=== PATIENT | female | born 1950 | race Asian ===

== ENCOUNTER 2018-01-03 19:47 | Emergency (ER) | payer OTHER, SELFPAY ==
[2018-01-03 19:47] VITALS: BP 158/108; PULSE 111; RESP 16; O2SAT 95; BMI 30.4
--- NOTE | 2018-01-03 20:06 | ED.CHESTPAIN ---
HPI - Chest Pain General Chief Complaint: Chest Pain Stated Complaint: CHEST PAIN Time Seen by Provider: 01/03/18 19:56 Source: patient and old records reviewed Mode of arrival: ambulatory Limitations: no limitations History of Present Illness HPI narrative: Patient is a 59-year-old female presenting with chest pain. She has a history of atrial fibrillation on Coumadin and metoprolol. She said it started at around 7:00 p.m. this evening. She felt her heart racing and palpitations. No dizziness lightheadedness shortness of breath. She has had this before. She has been taking all of her medication. No fevers or chills. MD complaint: chest pain Related Data Home Medications Medication Instructions Recorded Confirmed COLCHICINE (#COLCHICINE) 0.6 mg PO TID #0 03/28/11 01/03/18 metformin [Glucophage XR] 500 mg PO QDAY #0 05/25/17 01/03/18 metoprolol succinate ER 200 mg 100 mg PO QDAY #0 tab 08/08/17 01/03/18 tablet,extended release 24 hr simvastatin 20 mg tablet 20 mg PO QPM 08/08/17 01/03/18 warfarin 5 mg tablet 2.5 mg PO DAILY 08/08/17 01/03/18 Allergies Allergy/AdvReac Type Severity Reaction Status Date / Time No Known Drug Allergies Allergy Verified 08/08/17 15:00 Review of Systems Review of Systems GENERAL: Denies chills, fatigue, malaise, fever, sweats, travel HEENT: Denies sinus pain, ear pain, sore throat, difficulty swallowing, neck pain RESPIRATORY: Denies dyspnea, cough, wheezing, hemoptysis, sputum. CARDIOVASCULAR: See HPI GASTROINTESTINAL: Denies nausea, vomiting, abdominal pain, diarrhea, constipation, melena. : Denies dysuria, frequency, incontinence, hematuria, urinary retention, flank pain. MUSCULOSKELETAL: Denies weakness, joint pain, or bony pain SKIN: No rash, no erythema, no pruritus NEUROLOGIC: Denies weakness, dizziness, headache, numbness, change in speech, confusion PSYCHIATRIC: No concerning psychosocial issues. 12 point review of systems is negative except for those stated above and HPI PFSH Social History Smoking Status: Former smoker Exam Initial Vital Signs Initial Vital Signs: Vital Signs Pulse Rate 111 H 01/03/18 19:47 Respiratory Rate 16 01/03/18 19:47 Blood Pressure 158/108 H 10/31/18 19:47 Pulse Oximetry 95 01/03/18 19:47 GENERAL: Alert well-appearing female slightly anxious speaking in full sentences HEENT: Head atraumatic,EOMI, pupils reactive, neck is supple no JVD CARDIOVASCULAR: Irregularly irregular tachycardic no murmur RESPIRATORY: Breath sounds equal bilaterally, no wheezes rales or rhonchi. ABDOMEN: Soft, nontender. Normoactive bowel sounds all 4 quadrants. No guarding or rebound. EXTREMITIES: Normal range of motion, no clubbing or edema. Neurovascularly intact NEUROLOGICAL: Alert and oriented x4.Normal gait and speech. Cranial nerves II through XII grossly intact. SKIN: Warm, dry, no laceration, no petechiae, no rashes or lesions. Course Orders Ordered: ED Orders 01/03/18 20:00 Complete Blood Count AUTO DIFF Stat Comprehensive Metabolic Panel Stat Lipase Stat Partial Thromboplastin Time Stat Prothrombin Time INR Stat Troponin & CK Cardiac Panel Stat 01/03/18 20:10 XR chest 1V Stat Discontinued Medications Diltiazem HCl (Cardizem) 10 mg IV NOW ONE Stop: 01/03/18 20:11 Last Admin: 01/03/18 20:33 Dose: 10 mg Sodium Chloride (Normal Saline 0.9%) 1,000 mls @ 150 mls/hr IV CONT DAYDAY Last Infusion: 01/03/18 21:21 Dose: 0 mls/hr Admin: 01/03/18 20:34 Dose: 150 mls/hr Vital Signs - 8 hr 01/03/18 19:47 01/03/18 20:13 01/03/18 20:45 Temperature 98.5 F Pulse Rate 111 H 70 Respiratory Rate 16 18 Blood Pressure 158/108 H Blood Pressure [Right Arm] 137/76 Pulse Oximetry 95 91 01/03/18 21:00 01/03/18 21:22 Temperature Pulse Rate 72 80 Respiratory Rate 14 17 Blood Pressure 121/76 Blood Pressure [Right Arm] 121/76 Pulse Oximetry 95 95 MDM - Chest Pain Lab Data Attestation: I reviewed the patient's lab results. Result diagrams: 01/03/18 20:00 01/03/18 20:00 Lab Results 01/03/18 01/03/18 01/03/18 Range/Units 20:00 20:00 20:00 WBC 8.3 (4.5-11.0) X10^3/uL RBC 4.33 (4.0-5.2) X10^6/uL Hgb 13.2 (12.0-16.0) g/dL Hct 40.9 (36-46) % MCV 94.4 (80-100) fL MCH 30.5 (26-34) PG MCHC 32.3 (30-36) % RDW 12.8 (11.6-14.8) % Plt Count 278 (150-400) X10^3/uL Neut % (Auto) 48.3 L (50-75) % Lymph % (Auto) 42.2 H (25-40) % [place] % (Auto) 5.4 (3-14) % Eos % (Auto) 3.6 (2-4) % Baso % (Auto) 0.5 (0-2) % Neut # (Auto) 4000 (5251-6199) /uL PT 24.3 H (10.1-12.7) SECONDS INR 2.2 H (0.9-1.3) APTT 45 H (26.4-36.2) SECONDS Sodium 145 (137-145) mmol/L Potassium 3.5 (3.4-5.1) mmol/L Chloride 103 (98-107) mmol/L Carbon Dioxide 26 (22-32) mmol/L BUN 24 H (7-17) mg/dL Creatinine 1.10 H (0.52-1.04) mg/dL Estimated GFR 49.4 L (>60) mL/min BUN/Creatinine Ratio 21.8 (6-22) Glucose 203 H (80-110) mg/dL Calcium 9.3 (8.4-10.2) mg/dL Total Bilirubin 0.2 (0.2-1.3) mg/dL AST 25 (14-36) IU/L ALT 31 (9-52) IU/L Alkaline Phosphatase 88 (38-126) U/L Total Creatine Kinase 132 (30-135) U/L CK-MB (CK-2) 1.46 (<2.37) ng/mL CK-MB (CK-2) Rel Index 1.1 L (1.5-5.0) % Troponin I < 0.012 (0.01-0.034) ng/mL Total Protein 8.7 H (6.3-8.2) g/dL Albumin 4.5 (3.5-5.0) g/dL Globulin 4.2 H (1.7-4.1) g/dL Albumin/Globulin Ratio 1.1 (1.0-2.8) Lipase 382 H (23-300) U/L Urine Dip Bedside Urine Glucose Negative Bedside Urine Bilirubin - Negative Bedside Urine Ketone - Negative Urine Specific [place] 1.015 Bedside Urine Occult Blood +/- Bedside Urine pH 6.5 Bedside Urine Protein + 30 Bedside Urine Urobilinogen - Negative Bedside Urine Nitrite - Negative Bedside Urine Leukocytes - Negative Esterase Imaging Data Chest x-ray: Radiologist's impression: PROCEDURE: XR CHEST 1V INDICATIONS: chest pain TECHNIQUE: One view of the chest was acquired. COMPARISON: [facility], CR, CHEST 1 VIEW, 05/25/2017, 20:42. [facility], CR, XR CHEST 1VW (PORTABLE), 08/02/2016, 16:05. FINDINGS: Surgical changes and devices: None. Lungs and pleura: No pleural effusions or pneumothorax. Lungs are abnormal with a mild interstitial prominence previously present. Mediastinum: Mediastinal contours appear normal. Heart size is normal. Bones and chest wall: No suspicious bony lesions. Overlying soft tissues appear unremarkable. IMPRESSION: There is a reduced inspiratory volume, mild interstitial prominence previously present. Source of current symptoms is not seen. Dictated by: Alden Quiñonez M.D. on 01/03/2018 at 21:10 ECG Data Attestation: I personally reviewed and interpreted this ECG as follows: Prior ECG tracings: available for review Interpretation: EKG 1.: Atrial flutter rate [address] changes similar to previous EKG EKG 2. Atrial flutter rate [address] changes similar to previous EKG MDM Narrative Medical decision making narrative: The patient overall is feeling much better after her heart rate has slowed. Previous EKG shows a AFib as well. She took her metoprolol for this evening already. Discharge Plan Departure Patient Disposition: Home Clinical Impression: Atrial fibrillation/flutter Discharge Date/Time: 01/03/18 20:21 Interventions: ED Discharge Assessment Last Done: 01/03/18 21:22 Instructions: Atrial Flutter Activity Restrictions/Additional Instructions: *You have been diagnosed with atrial flutter *Continue to take medications as directed *Follow up with your primary care provider in 2-3 days *Return to ER if you should have worsening chest pain, heart palpitations, dizziness, lightheadedness or any new, worsening or concerning symptoms Prescriptions: No Action simvastatin 20 mg tablet 20 mg PO QPM RF: 0 warfarin [Coumadin] 5 mg tablet 2.5 mg PO DAILY RF: 0 COLCHICINE (#COLCHICINE) 0.6 mg PO TID Qty: 0 RF: 0 metformin [Glucophage XR] 500 MG tablet extended release 24 hr 500 mg PO QDAY Qty: 0 RF: 0 metoprolol succinate 200 mg tablet extended release 24 hr 100 mg PO QDAY Qty: 0 RF: 0
--- NOTE | 2018-01-03 20:10 | DI.RAD.S_ITS ---
PROCEDURE: XR CHEST 1V INDICATIONS: chest pain TECHNIQUE: One view of the chest was acquired. COMPARISON: [facility], CR, CHEST 1 VIEW, 05/25/2017, 20:42. [facility], CR, XR CHEST 1VW (PORTABLE), 08/02/2016, 16:05. FINDINGS: Surgical changes and devices: None. Lungs and pleura: No pleural effusions or pneumothorax. Lungs are abnormal with a mild interstitial prominence previously present. Mediastinum: Mediastinal contours appear normal. Heart size is normal. Bones and chest wall: No suspicious bony lesions. Overlying soft tissues appear unremarkable. IMPRESSION: There is a reduced inspiratory volume, mild interstitial prominence previously present. Source of current symptoms is not seen. Dictated by: Alden Quiñonez M.D. on 01/03/2018 at 21:10 Approved by: Alden Quiñonez M.D. on 01/03/2018 at 21:11
[2018-01-03 20:13] VITALS: TEMP 36.9
[2018-01-03 20:20] LABS: Add Manual Diff / Slide Review NO; Basophils Percent Auto 0.5 % (0-2); Eosinophils Percent Auto 3.6 % (2-4); Hematocrit 40.9 % (36-46); Hemoglobin 13.2 g/dL (12.0-16.0); INR 2.2 (0.9-1.3); Lymphocytes Percent Auto 42.2 % (25-40); Mean Corpuscular HGB Conc 32.3 % (30-36); Mean Corpuscular Hemoglobin 30.5 PG (26-34); Mean Corpuscular Volume 94.4 fL (80-100); Monocytes Percent Auto 5.4 % (3-14); Neutrophils Absolute Auto 4000 /uL (3000-5900); Neutrophils Percent Auto 48.3 % (50-75); Platelet Count 278 X10^3/uL (150-400); Prothrombin Time 24.3 SECONDS (10.1-12.7); Red Blood Cell Count 4.33 X10^6/uL (4.0-5.2); Red Cell Distribution Width 12.8 % (11.6-14.8); White Blood Cell Count 8.3 X10^3/uL (4.5-11.0)
[2018-01-03 20:23] LABS: PTT Partial Thromboplastin Tim 45 SECONDS (26.4-36.2)
[2018-01-03 20:24] LABS: Alanine Aminotransferase 31 IU/L (9-52); Albumin 4.5 g/dL (3.5-5.0); Albumin Globulin Ratio 1.1 (1.0-2.8); Alkaline Phosphatase 88 U/L (38-126); Aspartate Aminotransferase 25 IU/L (14-36); BUN Creatinine Ratio 21.8 (6-22); Bilirubin Total 0.2 mg/dL (0.2-1.3); Blood Urea Nitrogen 24 mg/dL (7-17); Calcium 9.3 mg/dL (8.4-10.2); Carbon Dioxide 26 mmol/L (22-32); Chloride 103 mmol/L (98-107); Creatine Kinase 132 U/L (30-135); Estimated Glomerular Filt Rate 49.4 mL/min (>60); Globulin 4.2 g/dL (1.7-4.1); Glucose 203 mg/dL (80-110); HEMOLYSIS < 15 (0-50); Lipase 382 U/L (23-300); Potassium 3.5 mmol/L (3.4-5.1); Sodium 145 mmol/L (137-145); Total Protein 8.7 g/dL (6.3-8.2)
[2018-01-03] MEDS: dilTIAZem 5 MG/ML SDV 10 MG IV (20:33)
[2018-01-03] MEDS: SODIUM CHLORIDE 0.9% 1,000 ML 150 ML IV (20:34)
[2018-01-03 20:36] LABS: Troponin I < 0.012 ng/mL (0.01-0.034)
[2018-01-03 20:39] LABS: CKMB % Relative Index 1.1 % (1.5-5.0); Creatine Kinase MB 1.46 ng/mL (<2.37)
[2018-01-03 20:45] VITALS: BP 137/76; PULSE 70; RESP 18; O2SAT 91
[2018-01-03 21:00] VITALS: BP 121/76; PULSE 72; RESP 14; O2SAT 95
[2018-01-03 21:22] VITALS: BP 121/76; PULSE 80; RESP 17; O2SAT 95
== END 2018-01-03 20:21 | disposition home or self-care (01) ==
PROVIDERS: Emergency Provider Emergency Medicine
DX: I48.91 Unspecified atrial fibrillation (principal)
CPT/HCPCS: 36591; 71045; 80053; 81003; 82550; 82553; 83690; 84484; 85025; 85610; 85730; 93005; 96361; 96374; 99283; 99285

== ENCOUNTER 2018-09-01 00:05 | Emergency (ER) | payer OTHER, SELFPAY ==
[2018-09-01] VITALS (16 sets, daily range): BP systolic 114–203; BP diastolic 70–129; PULSE 58–108; RESP 13–21; TEMP 36.6; O2SAT 95–98; BMI 31.8
--- NOTE | 2018-09-01 00:09 | ED_ITS ---
HPI - Chest Pain General Chief Complaint: Chest Pain Stated Complaint: chest pain, headache Time Seen by Provider: 09/01/18 00:07 Source: patient Mode of arrival: ambulatory Limitations: no limitations History of Present Illness HPI narrative: Patient is a 67-year-old female. Has a history of paroxysmal atrial fibrillation. Is currently on warfarin and also metoprolol. Also has a history of hypertension and hyperlipidemia. Here for evaluation of left-sided chest pain. Patient states she has had the pain off and on for the past couple days. Describes it as a ?crushing? sensation. States that it is become more frequent and more intense over the past day. Not associated with any other symptoms. Not worse with palpation or movement or breathing. Has never had any symptoms like this prior to a couple days ago. The symptoms that she had this evening the brought her into the emergency department woke her from sleep. Has not tried anything for the symptoms prior to arrival. Related Data Home Medications Medication Instructions Recorded Confirmed metformin [Glucophage XR] 500 mg PO QDAY #0 05/25/17 09/01/18 simvastatin 20 mg tablet 20 mg PO QPM 08/08/17 09/01/18 warfarin 5 mg tablet 2.5 mg PO DAILY 08/08/17 09/01/18 allopurinol 300 mg PO DAILY 09/01/18 09/01/18 metoprolol tartrate 150 mg PO DAILY 09/01/18 09/01/18 Allergies Allergy/AdvReac Type Severity Reaction Status Date / Time No Known Drug Allergies Allergy Verified 09/01/18 00:18 Review of Systems Constitutional Denies fever(s) and Denies headache(s) ENT Ears, Nose, Mouth, and Throat: Denies headache(s) Cardiovascular Reports chest pain, Denies diaphoresis, Denies syncope, Denies edema, Denies leg edema, Denies lightheadedness, Denies palpitations, Denies dyspnea and Denies paroxysmal nocturnal dyspnea Respiratory Denies cough and Denies dyspnea Gastrointestinal Gastrointestinal: Denies abdominal pain, Denies nausea and Denies vomiting Musculoskeletal Denies myalgias and Denies arthralgias Integumentary/Breasts Denies rash Neurologic Denies behavioral changes, Denies syncope and Denies headache(s) Psychiatric Denies behavioral changes Endocrine Denies palpitations Hematologic/Lymphatic Denies easy bleeding and Denies easy bruising [facility] Medical History Atrial fibrillation (Acute) Diabetes (Acute) Hyperlipidemia (Acute) Hypertension (Acute) Social History Smoking Status: Former smoker Social History Smoking Status: Former smoker Exam Initial Vital Signs Initial Vital Signs: Vital Signs Temperature 98 F 09/01/18 00:09 Pulse Rate 64 09/01/18 00:09 Respiratory Rate 13 09/01/18 00:09 Blood Pressure 203/84 H 09/01/18 00:09 Pulse Oximetry 96 09/01/18 00:09 Const General: cooperative, healthy appearing, comfortable, well developed, well groomed and No acute distress Orientation: alert and awake HENMT Head: normal to inspection and normocephalic Resp Effort & Inspection: normal respiratory effort Auscultation: clear to auscultation bilaterally Cardio Rate: regular rate Rhythm: regular rhythm Pulses: radial pulses present GI Inspection: non-distended Palpation: soft, No firm and No tender Skin Lesions: no lesions Rashes: no rashes Neuro General: alert, awake and oriented x3 Cognition: normal cognition Speech: speech normal Extrem General: normal to inspection, capillary refill normal and No edema Psych Appearance: grossly normal and well kempt Scores GCS Vivien coma scale eye opening: Spontaneous [place] coma scale verbal response: Orientated [place] coma scale motor response: Obey commands [place] coma scale total score: 15 HEART Score Heart Score history: Moderately Suspicious Heart Score EKG: Normal Heart Score Age: > or = 65 years old Heart Score risk factors: > 3 risk factors or hx of atherosclerotic disease Heart Score troponin: < or = to normal limit Heart Score Total: 5 Course Orders Ordered: ED Orders 09/01/18 00:10 XR chest 1V Stat EKG-12 Lead Stat 09/01/18 00:15 Complete Blood Count AUTO DIFF Stat Comprehensive Metabolic Panel Stat Lipase Stat Prothrombin Time INR Stat Troponin I Stat Discontinued Medications Aspirin (Aspirin Chew) 324 mg PO NOW ONE Stop: 09/01/18 00:33 Last Admin: 09/01/18 00:37 Dose: 324 mg Nitroglycerin (Nitrostat) 0.4 mg SL [id number] PRN PRN Reason: Chest Pain Last Admin: 09/01/18 00:57 Dose: 0.4 mg Admin: 09/01/18 00:48 Dose: 0.4 mg Admin: 09/01/18 00:38 Dose: 0.4 mg Vital Signs - 8 hr 09/01/18 00:09 09/01/18 00:25 09/01/18 00:38 Temperature 98 F Pulse Rate 64 59 L 64 Respiratory Rate 13 14 Blood Pressure 203/84 H 187/79 H Blood Pressure [Left Arm] 173/81 H Pulse Oximetry 96 95 09/01/18 00:48 09/01/18 00:57 09/01/18 01:11 Temperature Pulse Rate Respiratory Rate Blood Pressure 157/79 H 135/94 H 127/77 Blood Pressure [Left Arm] Pulse Oximetry 09/01/18 01:20 09/01/18 02:29 Temperature Pulse Rate 59 L 59 L Respiratory Rate 18 18 Blood Pressure Blood Pressure [Left Arm] 137/74 152/81 H Pulse Oximetry 95 97 MDM - Chest Pain Lab Data Attestation: I reviewed the patient's lab results. Result diagrams: 09/01/18 00:15 09/01/18 00:15 Lab Results 09/01/18 09/01/18 09/01/18 Range/Units 00:15 00:15 00:15 WBC 6.6 (4.5-11.0) X10^3/uL RBC 4.32 (4.0-5.2) X10^6/uL Hgb 13.5 (12.0-16.0) g/dL Hct 40.7 (36-46) % MCV 94.2 (80-100) fL MCH 31.3 (26-34) PG MCHC 33.2 (30-36) % RDW 13.6 (11.6-14.8) % Plt Count 251 (150-400) X10^3/uL Neut % (Auto) 44.7 L (50-75) % Lymph % (Auto) 41.1 H (25-40) % [place] % (Auto) 10.2 (3-14) % Eos % (Auto) 3.5 (2-4) % Baso % (Auto) 0.5 (0-2) % Neut # (Auto) 2900 (1364-4441) /uL Lymph # (Auto) 2700 (7942-7186) /uL [place] # (Auto) 700 (0-900) /uL Eos # (Auto) 200 (0-450) /uL Baso # (Auto) 0 (0-100) /uL PT 19.5 H (10.1-12.7) SECONDS INR 1.7 H (0.9-1.3) Sodium 142 (137-145) mmol/L Potassium 4.3 (3.4-5.1) mmol/L Chloride 105 (98-107) mmol/L Carbon Dioxide 29 (22-32) mmol/L BUN 29 H (7-17) mg/dL Creatinine 1.00 (0.52-1.04) mg/dL Estimated GFR 55.1 L (>60) mL/min BUN/Creatinine Ratio 29.0 H (6-22) Glucose 148 H (80-110) mg/dL Calcium 9.4 (8.4-10.2) mg/dL Total Bilirubin 0.6 (0.2-1.3) mg/dL AST 41 H (14-36) IU/L ALT 45 (9-52) IU/L Alkaline Phosphatase 84 (38-126) U/L Troponin I < 0.012 (0.01-0.034) ng/mL Total Protein 8.5 H (6.3-8.2) g/dL Albumin 4.3 (3.5-5.0) g/dL Globulin 4.2 H (1.7-4.1) g/dL Albumin/Globulin Ratio 1.0 (1.0-2.8) Lipase (23-300) U/L 09/01/18 Range/Units 00:15 WBC (4.5-11.0) X10^3/uL RBC (4.0-5.2) X10^6/uL Hgb (12.0-16.0) g/dL Hct (36-46) % MCV (80-100) fL MCH (26-34) PG MCHC (30-36) % RDW (11.6-14.8) % Plt Count (150-400) X10^3/uL Neut % (Auto) (50-75) % Lymph % (Auto) (25-40) % [place] % (Auto) (3-14) % Eos % (Auto) (2-4) % Baso % (Auto) (0-2) % Neut # (Auto) (1441-0030) /uL Lymph # (Auto) (3298-0368) /uL [place] # (Auto) (0-900) /uL Eos # (Auto) (0-450) /uL Baso # (Auto) (0-100) /uL PT (10.1-12.7) SECONDS INR (0.9-1.3) Sodium (137-145) mmol/L Potassium (3.4-5.1) mmol/L Chloride (98-107) mmol/L Carbon Dioxide (22-32) mmol/L BUN (7-17) mg/dL Creatinine (0.52-1.04) mg/dL Estimated GFR (>60) mL/min BUN/Creatinine Ratio (6-22) Glucose (80-110) mg/dL Calcium (8.4-10.2) mg/dL Total Bilirubin (0.2-1.3) mg/dL AST (14-36) IU/L ALT (9-52) IU/L Alkaline Phosphatase (38-126) U/L Troponin I (0.01-0.034) ng/mL Total Protein (6.3-8.2) g/dL Albumin (3.5-5.0) g/dL Globulin (1.7-4.1) g/dL Albumin/Globulin Ratio (1.0-2.8) Lipase 327 H (23-300) U/L Imaging Data Chest x-ray: Attestation: I personally reviewed and interpreted this imaging study as follows: My impression: Normal size heart No acute pathology No pneumothorax ECG Data Attestation: I personally reviewed and interpreted this ECG as follows: Prior ECG tracings: not available for review Interpretation: Sinus rhythm Normal axis Ventricular rate is [address] T wave changes MDM Narrative Medical decision making narrative: The patient was given aspirin here upon arrival. Was still having chest pain in was hypertensive upon arrival which improved with nitroglycerin. Patient is a heart score 5. Her symptoms are somewhat concerning for ischemia. I feel that admission for stress testing and continued evaluation is needed. We are unable to provide stress testing here at this hospital over the weekend. I did discuss the case with Dr. Sandhu with Internal Medicine at [facility] who accepts the patient in transport. I did discuss this with the patient and her son who is at bedside. They both expresse d understanding and agreement plan. Discharge Plan Departure Patient Disposition: [facility] Clinical Impression: Chest pain Qualifiers: Chest pain type: unspecified Qualified Code(s): R07.9 - Chest pain, unspecified Hypertension Qualifiers: Hypertension type: unspecified Qualified Code(s): I10 - Essential (primary) hypertension Prescriptions: No Action simvastatin 20 mg tablet 20 mg PO QPM RF: 0 warfarin [Coumadin] 5 mg tablet 2.5 mg PO DAILY RF: 0 metformin [Glucophage XR] 500 MG tablet extended release 24 hr 500 mg PO QDAY Qty: 0 RF: 0 allopurinol 300 mg tablet 300 mg PO DAILY RF: 0 metoprolol tartrate 100 mg tablet 150 mg PO DAILY RF: 0
--- NOTE | 2018-09-01 00:10 | DI.RAD.S_ITS ---
PROCEDURE: XR CHEST 1V INDICATIONS: Chest pain TECHNIQUE: One view of the chest was acquired. COMPARISON: [facility], , XR CHEST 1V, 01/03/2018, 20:19. [facility], , CHEST 1 VIEW, 05/25/2017, 20:42. FINDINGS: Surgical changes and devices: None. Lungs and pleura: Lungs are abnormal with a chronic interstitial prominence.. No pleural effusions or pneumothorax. Mediastinum: Mediastinal contours appear normal. Heart size is mildly enlarged. Bones and chest wall: No suspicious bony lesions. Overlying soft tissues appear unremarkable. IMPRESSION: Mild acute exacerbation of CHF. No additional source of chest pain is seen. Dictated by: Alden Quiñonez M.D. on 09/01/2018 at 8:04 Approved by: Alden Quiñonez M.D. on 09/01/2018 at 8:05
[2018-09-01 00:23] LABS: Add Manual Diff / Slide Review NO; Basophils Absolute Auto 0 /uL (0-100); Basophils Percent Auto 0.5 % (0-2); Eosinophils Absolute Auto 200 /uL (0-450); Eosinophils Percent Auto 3.5 % (2-4); Hematocrit 40.7 % (36-46); Hemoglobin 13.5 g/dL (12.0-16.0); Lymphocytes Absolute Auto 2700 /uL (1100-4500); Lymphocytes Percent Auto 41.1 % (25-40); Mean Corpuscular HGB Conc 33.2 % (30-36); Mean Corpuscular Hemoglobin 31.3 PG (26-34); Mean Corpuscular Volume 94.2 fL (80-100); Monocytes Absolute Auto 700 /uL (0-900); Monocytes Percent Auto 10.2 % (3-14); Neutrophils Absolute Auto 2900 /uL (1500-7000); Neutrophils Percent Auto 44.7 % (50-75); Platelet Count 251 X10^3/uL (150-400); Red Blood Cell Count 4.32 X10^6/uL (4.0-5.2); Red Cell Distribution Width 13.6 % (11.6-14.8); White Blood Cell Count 6.6 X10^3/uL (4.5-11.0)
[2018-09-01 00:31] LABS: INR 1.7 (0.9-1.3); Prothrombin Time 19.5 SECONDS (10.1-12.7)
[2018-09-01 00:35] LABS: Alanine Aminotransferase 45 IU/L (9-52); Albumin 4.3 g/dL (3.5-5.0); Alkaline Phosphatase 84 U/L (38-126); Aspartate Aminotransferase 41 IU/L (14-36); Bilirubin Total 0.6 mg/dL (0.2-1.3); Blood Urea Nitrogen 29 mg/dL (7-17); Calcium 9.4 mg/dL (8.4-10.2); Carbon Dioxide 29 mmol/L (22-32); Chloride 105 mmol/L (98-107); Estimated Glomerular Filt Rate 55.1 mL/min (>60); Globulin 4.2 g/dL (1.7-4.1); Glucose 148 mg/dL (80-110); HEMOLYSIS < 15 (0-50); Potassium 4.3 mmol/L (3.4-5.1); Sodium 142 mmol/L (137-145); Total Protein 8.5 g/dL (6.3-8.2)
[2018-09-01 00:36] LABS: Lipase 327 U/L (23-300)
[2018-09-01] MEDS: ASPIRIN 81 MG TAB 324 MG PO (00:37)
[2018-09-01] MEDS: NITROGLYCERIN 0.4 MG SL TAB SL ×3 (00:38→00:57)
[2018-09-01 00:47] LABS: Troponin I < 0.012 ng/mL (0.01-0.034)
--- NOTE | 2018-09-01 04:10 | PC.NURSE ---
Pt son assisted pt to restroom per pt's request. Steady gait noted.
[2018-09-01 05:59] LABS: Troponin I 0.017 ng/mL (0.01-0.034)
--- NOTE | 2018-09-01 06:39 | PC.NURSE ---
Pt complaining that chest discomfort is returning, Dr. Araujo made aware.
[2018-09-01] MEDS: NITROGLYCERIN OINT 1 INCH/GM OINT...G. 0.5 INCH TOP (06:45)
--- NOTE | 2018-09-01 07:01 | PC.NURSE ---
per dr escalante pt can take metoprolol tarterate 150mg and metformin 500mg po, with crackers.
--- NOTE | 2018-09-01 07:10 | PC.NURSE ---
Patient taking her own meds ok per MD Araujo.
--- NOTE | 2018-09-01 08:27 | PC.NURSE ---
Report called to Harmony DAVILA at [facility].
== END 2018-09-01 08:52 | disposition short-term general hospital (02) ==
PROVIDERS: Emergency Provider Emergency Medicine
DX: R07.9 Chest pain, unspecified (principal); I10 Essential (primary) hypertension; Z79.01 Long term (current) use of anticoagulants
CPT/HCPCS: 36415; 36591; 71045; 80053; 83690; 84484; 85025; 85610; 93005; 93010; 99285

== ENCOUNTER 2019-03-26 18:37 | Emergency (ER) | payer MEDICARE, SELFPAY ==
--- NOTE | 2019-03-26 18:56 | DI.RAD.S_ITS ---
PROCEDURE: XR CHEST 1V INDICATIONS: chest pain TECHNIQUE: One view of the chest was acquired. COMPARISON: [facility], CR, XR CHEST 1V, 09/01/2018, 0:14. FINDINGS: Surgical changes and devices: Monitoring wires overlie the chest. Lungs and pleura: Lungs are clear. No pleural effusions or pneumothorax. Mediastinum: Mediastinal contours appear normal. Heart size is normal. Bones and chest wall: No suspicious bony lesions. Overlying soft tissues appear unremarkable. IMPRESSION: No acute process. Dictated by: Halie Catalan M.D. on 03/26/2019 at 19:41 Approved by: Halie Catalan M.D. on 03/26/2019 at 19:42
[2019-03-26 18:59] VITALS: BP 167/91; PULSE 70; RESP 18
[2019-03-26 19:05] LABS: Add Manual Diff / Slide Review NO; Basophils Absolute Auto 0 /uL (0-100); Basophils Percent Auto 0.7 % (0-2); Eosinophils Absolute Auto 200 /uL (0-450); Eosinophils Percent Auto 3.4 % (2-4); Hematocrit 39.8 % (36-46); Hemoglobin 13.3 g/dL (12.0-16.0); Lymphocytes Absolute Auto 3100 /uL (1100-4500); Lymphocytes Percent Auto 43.2 % (25-40); Mean Corpuscular HGB Conc 33.4 % (30-36); Mean Corpuscular Hemoglobin 31.9 PG (26-34); Mean Corpuscular Volume 95.5 fL (80-100); Monocytes Absolute Auto 500 /uL (0-900); Monocytes Percent Auto 7.2 % (3-14); Neutrophils Absolute Auto 3300 /uL (1500-7000); Neutrophils Percent Auto 45.5 % (50-75); Platelet Count 220 X10^3/uL (150-400); Red Blood Cell Count 4.16 X10^6/uL (4.0-5.2); Red Cell Distribution Width 12.8 % (11.6-14.8); White Blood Cell Count 7.2 X10^3/uL (4.5-11.0)
[2019-03-26 19:07] LABS: Prothrombin Time 35.1 SECONDS (10.1-12.7)
[2019-03-26 19:10] LABS: PTT Partial Thromboplastin Tim 48 SECONDS (26.4-36.2)
[2019-03-26 19:12] LABS: Alanine Aminotransferase 23 IU/L (<35); Albumin 4.6 g/dL (3.5-5.0); Albumin Globulin Ratio 1.1 (1.0-2.8); Alkaline Phosphatase 79 U/L (38-126); Aspartate Aminotransferase 33 IU/L (14-36); BUN Creatinine Ratio 22.5 (6-22); Bilirubin Total 0.5 mg/dL (0.2-1.3); Blood Urea Nitrogen 27 mg/dL (7-17); Calcium 10.2 mg/dL (8.4-10.2); Carbon Dioxide 26 mmol/L (22-32); Chloride 98 mmol/L (98-107); Creatine Kinase 159 U/L (30-135); Estimated Glomerular Filt Rate 44.5 mL/min (>60); Globulin 4.2 g/dL (1.7-4.1); Glucose 131 mg/dL (80-110); HEMOLYSIS 34 (0-50); Lipase 813 U/L (23-300); Potassium 4.3 mmol/L (3.4-5.1); Sodium 136 mmol/L (137-145); Total Protein 8.8 g/dL (6.3-8.2)
--- NOTE | 2019-03-26 19:23 | ED_ITS ---
HPI - General Adult General Chief complaint: Hypertension Stated complaint: BLOOD PRESSURE IS HIGH Time Seen by Provider: 03/26/19 19:23 Source: patient and family Mode of arrival: Ambulatory Limitations: no limitations History of Present Illness HPI narrative: This is a 68-year-old female comes to the emergency department sent by a nurse practitioner to cardiology office. They had contacted the patient she was started on Diovan about a week ago her repeat creatinine was elevated from her initial and they were calling her to stop her Diovan and change her to amlodipine. Patient had had elevated blood pressures at home in the 200 systolic range and sometimes 1 teens for diastolic today. Per nurse practitioner in Family they checked it 3 times today. Patient has been asymptomatic. Patient has not had any headaches, no vision changes. No chest pain, no pressure or shortness of breath. She denies any nausea no vomiting. No abdominal pain. No numbness or tingling. She occasionally has some swelling in her ankles that she describes as mild. She has had a little bit of a cough and runny nose for about 3 months and states nonproductive. She has not had fevers. She has a history of gout, she is on allopurinol for this, she is on warfarin for atrial fibrillation, metformin and metoprolol daily. She did have her Diovan this morning at 9:[address] marrero well as her primary care. Related Data Home Medications Medication Instructions Recorded Confirmed metformin [Glucophage XR] 500 mg PO QDAY #0 05/25/17 12/13/18 simvastatin 20 mg tablet 20 mg PO QPM 08/08/17 12/13/18 warfarin 5 mg tablet 2.5 mg PO DAILY 08/08/17 12/13/18 allopurinol 300 mg PO DAILY 09/01/18 12/13/18 metoprolol tartrate 150 mg PO DAILY 09/01/18 12/13/18 Previous Rx's Medication Instructions Recorded benzonatate 100 mg capsule 100 mg PO BID PRN #14 cap 12/13/18 amlodipine 5 mg PO DAILY #14 tab 03/26/19 Allergies Allergy/AdvReac Type Severity Reaction Status Date / Time No Known Drug Allergies Allergy Verified 12/13/18 14:23 Review of Systems Review of Systems ROS Unobtainable: All systems reviewed & are unremarkable except as noted in HPI and below Patient History Medical History Atrial fibrillation (Acute) Diabetes (Acute) Hyperlipidemia (Acute) Hypertension (Acute) Social History Smoking Status: Former smoker Smoking Status: Former smoker Substance Use Type: does not use Exam Narrative Exam Narrative: GENERAL: Alert and oriented x three, well-nourished, well- appearing female in no acute distress. HEENT: Head normocephalic, atraumatic, EOMI, pupils reactive, face symmetric, moist mucous membranes NECK: Supple, full range of motion CARDIOVASCULAR: Regular rate and rhythm without murmurs, rubs or gallops. RESPIRATORY: Breath sounds equal bilaterally, no wheezes rales or rhonchi. ABDOMEN: Soft, nontender. Normoactive bowel sounds all 4 quadrants. No guarding or rebound, rigidity, no mass, no pulsatile mass. : No CVA tenderness EXTREMITIES: Normal range of motion, no edema noted. Neurovascularly intact NEUROLOGICAL: Cranial nerves II through XII grossly intact. Moving all extremit ies SKIN: Warm, dry, no petechiae, no rashes or lesions. Initial Vital Signs Initial Vital Signs: Vital Signs Pulse Rate 70 03/26/19 18:59 Respiratory Rate 18 03/26/19 18:59 Blood Pressure 167/91 H 03/26/19 18:59 Course Orders Ordered: ED Orders 03/26/19 18:53 Complete Blood Count AUTO DIFF Stat Comprehensive Metabolic Panel Stat Lipase Stat Partial Thromboplastin Time Stat Prothrombin Time INR Stat Troponin & CK Cardiac Panel Stat 03/26/19 18:56 XR chest 1V Stat EKG-12 Lead Stat Vital Signs Vital signs: Vital Signs - 8 hr 03/26/19 18:59 03/26/19 19:30 Pulse Rate 70 80 Respiratory Rate 18 18 Blood Pressure [Left Arm] 167/91 H 167/87 H Pulse Oximetry 98 Medical Decision Making Lab Data Lab results reviewed: Yes I reviewed the patient's lab results. Result diagrams: 03/26/19 18:53 03/26/19 18:53 Labs: Lab Results 03/26/19 03/26/19 03/26/19 Range/Units 18:53 18:53 18:53 WBC 7.2 (4.5-11.0) X10^3/uL RBC 4.16 (4.0-5.2) X10^6/uL Hgb 13.3 (12.0-16.0) g/dL Hct 39.8 (36-46) % MCV 95.5 (80-100) fL MCH 31.9 (26-34) PG MCHC 33.4 (30-36) % RDW 12.8 (11.6-14.8) % Plt Count 220 (150-400) X10^3/uL Neut % (Auto) 45.5 L (50-75) % Lymph % (Auto) 43.2 H (25-40) % [place] % (Auto) 7.2 (3-14) % Eos % (Auto) 3.4 (2-4) % Baso % (Auto) 0.7 (0-2) % Neut # (Auto) 3300 (0821-8738) /uL Lymph # (Auto) 3100 (0922-8701) /uL [place] # (Auto) 500 (0-900) /uL Eos # (Auto) 200 (0-450) /uL Baso # (Auto) 0 (0-100) /uL PT 35.1 H (10.1-12.7) SECONDS INR 3.0 H (0.9-1.3) APTT 48 H D (26.4-36.2) SECONDS Sodium 136 L (137-145) mmol/L Potassium 4.3 (3.4-5.1) mmol/L Chloride 98 (98-107) mmol/L Carbon Dioxide 26 (22-32) mmol/L BUN 27 H (7-17) mg/dL Creatinine 1.20 H (0.52-1.04) mg/dL Estimated GFR 44.5 L (>60) mL/min BUN/Creatinine Ratio 22.5 H (6-22) Glucose 131 H (80-110) mg/dL Calcium 10.2 (8.4-10.2) mg/dL Total Bilirubin 0.5 (0.2-1.3) mg/dL AST 33 (14-36) IU/L ALT 23 (<35) IU/L Alkaline Phosphatase 79 (38-126) U/L Total Creatine Kinase 159 H (30-135) U/L CK-MB (CK-2) 1.71 (<2.37) ng/mL CK-MB (CK-2) Rel Index 1.1 L (1.5-5.0) % Troponin I < 0.012 (0.01-0.034) ng/mL Total Protein 8.8 H (6.3-8.2) g/dL Albumin 4.6 (3.5-5.0) g/dL Globulin 4.2 H (1.7-4.1) g/dL Albumin/Globulin Ratio 1.1 (1.0-2.8) Lipase 813 H (23-300) U/L Imaging Data Chest x-ray: Radiologist's Impression: [address] [address] XRay Report Signed Patient: Delaney Paredes [facility]#: [id number] : 1950Acct:[id number] Age/Sex: 68 / FDate of Service: 03/26/19 Loc: ED Accession Number: [id number] Procedure: XR chest 1V Ordering Provider: Katie Bowden D.O. PROCEDURE: XR CHEST 1V INDICATIONS: chest pain TECHNIQUE: One view of the chest was acquired. COMPARISON: [facility], , XR CHEST 1V, 09/01/2018, 0:14. FINDINGS: Surgical changes and devices: Monitoring wires overlie the chest. Lungs and pleura: Lungs are clear. No pleural effusions or pneumothorax. Mediastinum: Mediastinal contours appear normal. Heart size is normal. Bones and chest wall: No suspicious bony lesions. Overlying soft tissues appear unremarkable. IMPRESSION: No acute process. Dictated by: Halie Catalan M.D. on 03/26/2019 at 19:41 Approved by: Halie Catalan M.D. on 03/26/2019 at 19:42 ECG Data Attestation: I personally reviewed and interpreted this ECG as follows: Prior ECG tracings: available for review Interpretation: Sinus rhythm with a rate of 61 P are 180 QRS 85 and QTC of [address] elevation or depression appreciated. Patient has prior EKG from 09/01/2018 which showed the 1st EKG from that day shows flutter but the 2nd shows sinus rhythm with similar findings as today EKG. MDM Narrative Medical decision making narrative: Patient comes sent by the nurse practitioner from cardiology clinic for her described elevated blood pressures at home. She had an increase of her creatinine from 1-1.2 any plan to stop her Diovan and switch her to amlodipine. After patient's description of elevated pressures she was asymptomatic per nurse practitioner and per the patient and family here but they were concerned and was sent for evaluation. Patient does not appear have any major end-organ damage her creatinine had been 1-1.1 in the past into 2018 INR 1.2 today. Patient's INR is 3 which is appropriate for her afib. She does have an elevated lipase at 800 but is also asymptomatic. Patient has also not had any nausea vomiting, fevers chills or other symptoms. She has been consistently in the mid 300s in the past. Discussed with patient I would like her to follow up with her primary care and discuss that with them as she may need some further evaluation in the future her other LFTs are normal. Troponin is negative. CXR shows no acute change. Discharge Plan Departure Patient Disposition: Home Clinical Impression: Hypertension, Elevated lipase Discharge Date/Time: 03/26/19 20:10 Instructions: Treatments for High Blood Pressure: More Than Just Taking a Pill Activity Restrictions/Additional Instructions: Follow up with your physician in the next week. Call for an appointment, to discuss your elevated lipase and for blood pressure recheck. Your INR is 3 today. You may continue your warfarin as prescribed. Stop your diovan or valsartan as per cardiology recommendations Start amlodipine 5mg once daily. There is always potential for this medication to drop your blood pressure if you feel lightheaded or like you are going to p ass out stop the amlodipine and call your physician. Prescription was sent to [facility] in [place]. Return to the emergency department for fevers greater 100.4 F, severe headaches, new vision changes, lightheadedness, passing out, new chest pain or pressure, persistent nausea or vomiting, abdominal pain, new or worsening swelling in her lower extremities or other new or concerning symptoms. Prescriptions: New amlodipine 5 mg tablet 5 mg PO DAILY Qty: 14 RF: 0 No Action simvastatin 20 mg tablet 20 mg PO QPM RF: 0 warfarin [Coumadin] 5 mg tablet 2.5 mg PO DAILY RF: 0 benzonatate [Tessalon Perles] 100 mg capsule 100 mg PO BID PRN (Reason: cough) Qty: 14 RF: 0 metformin [Glucophage XR] 500 MG tablet extended release 24 hr 500 mg PO QDAY Qty: 0 RF: 0 allopurinol 300 mg tablet 300 mg PO DAILY RF: 0 metoprolol tartrate 100 mg tablet 150 mg PO DAILY RF: 0 Referrals: Miguelina Fair MD [Physician] -
[2019-03-26 19:24] LABS: Troponin I < 0.012 ng/mL (0.01-0.034)
[2019-03-26 19:27] LABS: CKMB % Relative Index 1.1 % (1.5-5.0); Creatine Kinase MB 1.71 ng/mL (<2.37)
[2019-03-26 19:30] VITALS: BP 167/87; PULSE 80; RESP 18; O2SAT 98
== END 2019-03-26 20:10 | disposition home or self-care (01) ==
PROVIDERS: Emergency Provider Emergency Medicine
DX: I10 Essential (primary) hypertension (principal); R74.8 Abnormal levels of other serum enzymes; I48.91 Unspecified atrial fibrillation; Z79.01 Long term (current) use of anticoagulants
CPT/HCPCS: 36415; 71045; 80053; 82550; 82553; 83690; 84484; 85025; 85610; 85730; 93005; 93010; 99284; 99285

== ENCOUNTER 2019-04-12 22:47 | Emergency (ER) | payer MEDICARE, SELFPAY ==
[2019-04-12 23:14] VITALS: BP 193/92; PULSE 70; RESP 16; TEMP 36.8; O2SAT 97; BMI 31.3
[2019-04-13 01:12] VITALS: BP 142/74; PULSE 70; RESP 14; TEMP 36.4; O2SAT 97
[2019-04-13 02:16] VITALS: BP 128/105; PULSE 72; RESP 14; O2SAT 97
--- NOTE | 2019-04-13 02:24 | ED.GENADULT ---
HPI - General Adult General Chief complaint: Hypertension Stated complaint: elevated blood pressure, dizziness when standing Time Seen by Provider: 04/13/19 02:11 Source: patient and family Mode of arrival: Ambulatory Limitations: language barrier History of Present Illness HPI narrative: 68-year-old female former smoker with history of hypertension presents tonight with her son in the chief complaint of some dizziness upon standing when she woke up to use the restroom this evening. She took her blood pressure and found it to be quite elevated. She denied focal neurologic findings such as blurred vision, trouble with speech nor numbness, tingling or weakness. She denied any chest pain or shortness of breath nor abdominal pain. She states she did take her normal antihypertensives this evening. Her symptoms had all but resolved prior to arrival Onset (ago): hour(s) Location: head Radiation: non-radiation Related Data Home Medications Medication Instructions Recorded Confirmed metformin [Glucophage XR] 500 mg PO QDAY #0 05/25/17 12/13/18 simvastatin 20 mg tablet 20 mg PO QPM 08/08/17 12/13/18 warfarin 5 mg tablet 2.5 mg PO DAILY 08/08/17 12/13/18 allopurinol 300 mg PO DAILY 09/01/18 12/13/18 metoprolol tartrate 150 mg PO DAILY 09/01/18 12/13/18 Previous Rx's Medication Instructions Recorded benzonatate 100 mg capsule 100 mg PO BID PRN #14 cap 12/13/18 amlodipine 5 mg PO DAILY #14 tab 03/26/19 Allergies Allergy/AdvReac Type Severity Reaction Status Date / Time No Known Drug Allergies Allergy Verified 04/12/19 23:19 Review of Systems Constitutional Constitutional: Denies chills, Denies fatigue, Denies fever(s), Denies frequent falls, Denies lethargy and Denies weakness Eyes Eyes: Denies change in vision, Denies eye discharge, Denies irritation and Denies loss of vision ENT Ears, Nose, Mouth, and Throat: Denies change in voice, Reports dizziness, Denies neck pain, Denies sore throat and Denies throat swelling Cardiovascular Cardiovascular: Denies chest pain, Denies irregular heart rhythm, Denies lightheadedness, Denies palpitations, Denies dyspnea, Denies dyspnea on exertion and Denies orthopnea Respiratory Respiratory: Denies cough, Denies dyspnea, Denies dyspnea on exertion and Denies wheezing Gastrointestinal Gastrointestinal: Denies abdominal pain, Denies change in bowel habits, Denies diarrhea, Denies nausea and Denies vomiting Genitourinary Genitourinary: Denies hematuria, Denies flank pain, Denies urinary incontinence and Denies urinary urgency Musculoskeletal Musculoskeletal: Denies back pain, Denies muscle weakness, Denies neck pain, Denies numbness and Denies tingling Integumentary/Breasts Skin/Breast: Denies pruritus, Denies erythema, Denies rash and Denies wounds Neurologic Neurologic: Denies behavioral changes, Denies confusion, Reports dizziness, Denies frequent falls, Denies loss of vision, Denies numbness, Denies tingling and Denies weakness Psychiatric Psychiatric: Denies anxiety, Denies behavioral changes, Denies confusion, Denies depression, Denies homicidal ideation and Denies suicidal ideation Endocrine Endocrine: Denies fatigue, Denies flushing and Denies palpitations Hematologic/Lymphatic Hematologic/Lymphatic: Denies easy bruising Allergic/Immunologic Allergic/Immunologic: Denies urticaria, Denies throat swelling and Denies wheezing Patient History Medical History Atrial fibrillation (Acute) Diabetes (Acute) Hyperlipidemia (Acute) Hypertension (Acute) Social History Smoking Status: Former smoker Smoking Status: Former smoker Substance Use Type: does not use Exam Narrative Exam Narrative: GENERAL: [68] year old patient appears stated age. Well-nourished, well-developed patient, in mild distress. HEAD: Atraumatic. Normocephalic. EYES: Pupils equal round and reactive. Extraocular motions intact. No scleral icterus. No injection or drainage. ENT: Nose without bleeding, purulent drainage. Throat without erythema, tonsillar hypertrophy or exudate. Airway patent. NECK: Trachea midline. Non tender CARDIOVASCULAR: Regular rate and rhythm without murmurs, gallops, or rubs. RESPIRATORY: Clear to auscultation. Breath sounds equal bilaterally. No wheezes, rales, or rhonchi. GASTROINTESTINAL: Abdomen soft, non-tender, nondistended. EXTREMITIES: No edema or joint tenderness. BACK: Nontender without deformity or crepitance. No flank tenderness. NEURO: AOx3. SKIN: No rash or erythema of visible areas NIH Stroke Scale 1a. LOC: Patient is alert and keenly responsive (0) 1b. LOC Questions: Patient answers both LOC questions accurately (0) 1c. LOC Commands: Patient performs both tasks correctly (0) 2. Best Gaze: Normal (0) 3. Visual: No visual loss (0) 4. Facial palsy: Normal symmetrical movements (0) 5. Motor arm: No drift (0) 6. Motor leg: No drift (0) 7. Limb ataxia: Absent (0) 8. Sensory: Normal (0) 9. Best language: No aphasia; normal (0) 10. Dysarthria: Normal (0) 11. Extinction and inattention: No abnormality (0) NIHSS: 0 Initial Vital Signs Initial Vital Signs: Vital Signs Temperature 98.3 F 04/12/19 23:14 Pulse Rate 70 04/12/19 23:14 Respiratory Rate 16 04/12/19 23:14 Blood Pressure 193/92 H 04/12/19 23:14 Pulse Oximetry 97 04/12/19 23:14 Course Orders Ordered: ED Orders 04/12/19 22:58 EKG-12 Lead Routine 04/13/19 02:24 Complete Blood Count AUTO DIFF Stat Comprehensive Metabolic Panel Stat Lipase Stat NT-proBNP (BNP-Adult 18+) Stat Troponin & CK Cardiac Panel Stat Discontinued Medications Sodium Chloride (Normal Saline 0.9%) 1,000 mls @ 150 mls/hr IV CONT DAYDAY Last Admin: 04/13/19 02:36 Dose: 150 mls/hr Documented by: VIDYA Vital Signs Vital signs: Vital Signs - 8 hr 04/12/19 23:14 04/13/19 01:12 04/13/19 02:16 Temperature 98.3 F 97.6 F Pulse Rate 70 70 72 Respiratory Rate 16 14 14 Blood Pressure 193/92 H Blood Pressure [Left Arm] 142/74 H 128/105 H Pulse Oximetry 97 97 97 04/13/19 03:00 04/13/19 03:30 Temperature Pulse Rate 59 L 76 Respiratory Rate 12 15 Blood Pressure 136/62 Blood Pressure [Left Arm] 136/62 Pulse Oximetry 95 96 Medical Decision Making Lab Data Result diagrams: 04/12/19 23:07 04/12/19 23:07 Labs: Lab Results 02/07/20 02/07/20 Range/Units 23:07 23:07 WBC 6.9 (4.5-11.0) X10^3/uL RBC 4.20 (4.0-5.2) X10^6/uL Hgb 13.5 (12.0-16.0) g/dL Hct 40.0 (36-46) % MCV 95.0 (80-100) fL MCH 32.0 (26-34) PG MCHC 33.7 (30-36) % RDW 12.9 (11.6-14.8) % Plt Count 260 (150-400) X10^3/uL Neut % (Auto) 48.5 L (50-75) % Lymph % (Auto) 38.7 (25-40) % [place] % (Auto) 7.9 (3-14) % Eos % (Auto) 4.2 H (2-4) % Baso % (Auto) 0.7 (0-2) % Neut # (Auto) 3400 (1387-5745) /uL Lymph # (Auto) 2700 (1013-3087) /uL [place] # (Auto) 600 (0-900) /uL Eos # (Auto) 300 (0-450) /uL Baso # (Auto) 0 (0-100) /uL Sodium 141 (137-145) mmol/L Potassium 4.3 (3.4-5.1) mmol/L Chloride 104 (98-107) mmol/L Carbon Dioxide 28 (22-32) mmol/L BUN 24 H (7-17) mg/dL Creatinine 0.90 (0.52-1.04) mg/dL Estimated GFR > 60.0 (>60) mL/min BUN/Creatinine Ratio 26.7 H (6-22) Glucose 113 H (80-110) mg/dL Calcium 11.0 H (8.4-10.2) mg/dL Total Bilirubin 0.5 (0.2-1.3) mg/dL AST 29 (14-36) IU/L ALT 22 (<35) IU/L Alkaline Phosphatase 75 (38-126) U/L Total Creatine Kinase 94 (30-135) U/L CK-MB (CK-2) TNP CK-MB (CK-2) Rel Index TNP Troponin I < 0.012 (0.01-0.034) ng/mL NT-Pro-B Natriuret Pep 255 H (<125) pg/mL Total Protein 8.6 H (6.3-8.2) g/dL Albumin 4.4 (3.5-5.0) g/dL Globulin 4.2 H (1.7-4.1) g/dL Albumin/Globulin Ratio 1.0 (1.0-2.8) Lipase 417 H (23-300) U/L MDM Narrative Medical decision making narrative: Patient with brief episode of dizziness upon standing and elevated blood pressure as very reassuring exam, history and lab work. Pressure normalized, patient asymptomatic and able to ambulate through the department without difficulty. She understands and is in agreement with diagnosis and plan. She has had questions answered to her apparent satisfaction. She understands return precautions. Discharge Plan Departure Patient Disposition: Home Clinical Impression: Hypertension Qualifiers: Hypertension type: essential hypertension Qualified Code(s): I10 - Essential (primary) hypertension Discharge Date/Time: 04/13/19 03:33 Instructions: DI for High Blood Pressure Activity Restrictions/Additional Instructions: *You have been diagnosed with [ hypertensive episode ] *What to do: *Take medications as directed *Follow up with your primary care provider in 2-3 days, call for an appointment. Let them know you were seen in the Emergency Department and that we ask that you be seen in follow up *Return to ER if you should have any new, worsening or concerning symptoms Prescriptions: No Action simvastatin 20 mg tablet 20 mg PO QPM RF: 0 warfarin [Coumadin] 5 mg tablet 2.5 mg PO DAILY RF: 0 benzonatate [Tessalon Perles] 100 mg capsule 100 mg PO BID PRN (Reason: cough) Qty: 14 RF: 0 metformin [Glucophage XR] 500 MG tablet extended release 24 hr 500 mg PO QDAY Qty: 0 RF: 0 allopurinol 300 mg tablet 300 mg PO DAILY RF: 0 metoprolol tartrate 100 mg tablet 150 mg PO DAILY RF: 0 amlodipine 5 mg tablet 5 mg PO DAILY Qty: 14 RF: 0 Referrals: Emma Blake PA-C [Non-Staff] -
[2019-04-13 02:34] LABS: Add Manual Diff / Slide Review NO; Basophils Absolute Auto 0 /uL (0-100); Basophils Percent Auto 0.7 % (0-2); Eosinophils Absolute Auto 300 /uL (0-450); Eosinophils Percent Auto 4.2 % (2-4); Hemoglobin 13.5 g/dL (12.0-16.0); Lymphocytes Absolute Auto 2700 /uL (1100-4500); Lymphocytes Percent Auto 38.7 % (25-40); Mean Corpuscular HGB Conc 33.7 % (30-36); Monocytes Absolute Auto 600 /uL (0-900); Monocytes Percent Auto 7.9 % (3-14); Neutrophils Absolute Auto 3400 /uL (1500-7000); Neutrophils Percent Auto 48.5 % (50-75); Platelet Count 260 X10^3/uL (150-400); Red Cell Distribution Width 12.9 % (11.6-14.8); White Blood Cell Count 6.9 X10^3/uL (4.5-11.0)
[2019-04-13] MEDS: SODIUM CHLORIDE 0.9% 1,000 ML 150 ML IV (02:36)
[2019-04-13 02:38] LABS: Alanine Aminotransferase 22 IU/L (<35); Albumin 4.4 g/dL (3.5-5.0); Alkaline Phosphatase 75 U/L (38-126); Aspartate Aminotransferase 29 IU/L (14-36); BUN Creatinine Ratio 26.7 (6-22); Bilirubin Total 0.5 mg/dL (0.2-1.3); Blood Urea Nitrogen 24 mg/dL (7-17); Carbon Dioxide 28 mmol/L (22-32); Chloride 104 mmol/L (98-107); Creatine Kinase 94 U/L (30-135); Estimated Glomerular Filt Rate > 60.0 mL/min (>60); Globulin 4.2 g/dL (1.7-4.1); Glucose 113 mg/dL (80-110); HEMOLYSIS < 15 (0-50); Lipase 417 U/L (23-300); Potassium 4.3 mmol/L (3.4-5.1); Sodium 141 mmol/L (137-145); Total Protein 8.6 g/dL (6.3-8.2)
[2019-04-13 02:50] LABS: NT-proBNP (BNP-Adult 18+) 255 pg/mL (<125); Troponin I < 0.012 ng/mL (0.01-0.034)
[2019-04-13 03:00] VITALS: BP 136/62; PULSE 59; RESP 12; O2SAT 95
[2019-04-13 03:30] VITALS: BP 136/62; PULSE 76; RESP 15; O2SAT 96
--- NOTE | 2019-04-20 00:13 | PC.NURSE ---
Addendum entered by Miya Day R.N. 04/25/19 20:13: IV fluid was stopped on 0330 on 04/13/19. Original Note: late entry. patient had received 100mls of normal saline before discharged. 900ml wasted.
== END 2019-04-13 03:33 | disposition home or self-care (01) ==
PROVIDERS: Emergency Provider Emergency Medicine
DX: I10 Essential (primary) hypertension (principal); R42 Dizziness and giddiness
CPT/HCPCS: 36415; 80053; 82550; 83690; 83880; 84484; 85025; 93005; 96360; 99284

== ENCOUNTER 2019-09-04 21:36 | Emergency (ER) | payer MEDICARE, SELFPAY ==
[2019-09-04] VITALS (12 sets, daily range): BP systolic 186–225; BP diastolic 82–100; PULSE 61–68; RESP 13–22; TEMP 36.5; O2SAT 96–98; BMI 31.5
--- NOTE | 2019-09-04 21:46 | ED.DIZZY ---
HPI - Dizziness General Chief Complaint: Dizziness Stated Complaint: DIZZY NAUSEA Time Seen by Provider: 09/04/19 21:38 Source: patient and family Mode of arrival: Ambulatory Limitations: no limitations History of Present Illness HPI Narrative: 68-year-old female former smoker with history of hypertension, hyperlipidemia, and DM presents with the chief complaint of headache, dizziness and lightheadedness particularly with movement. She denies any recent injury. She denies vomiting but has been nauseated. She denies any change in her medications. She states that she had an episode a few days ago as well neck got better with taking some Tums. She denies any chest pain or shortness of breath. She denies any trouble with urination or bowel movements. Related Data Home Medications Medication Instructions Recorded Confirmed metformin [Glucophage XR] 500 mg PO QDAY #0 05/25/17 12/13/18 simvastatin 20 mg tablet 20 mg PO QPM 08/08/17 12/13/18 warfarin 5 mg tablet 2.5 mg PO DAILY 08/08/17 12/13/18 allopurinol 300 mg PO DAILY 09/01/18 12/13/18 metoprolol tartrate 150 mg PO DAILY 09/01/18 12/13/18 Previous Rx's Medication Instructions Recorded benzonatate 100 mg capsule 100 mg PO BID PRN #14 cap 12/13/18 amlodipine 5 mg PO DAILY #14 tab 03/26/19 Allergies Allergy/AdvReac Type Severity Reaction Status Date / Time No Known Drug Allergies Allergy Verified 09/04/19 22:34 Review of Systems Constitutional Constitutional: Denies chills, Denies fatigue, Denies fever(s), Denies frequent falls, Reports headache(s), Denies lethargy and Denies weakness Eyes Eyes: Denies change in vision, Denies eye discharge, Denies irritation and Denies loss of vision ENT Ears, Nose, Mouth, and Throat: Denies change in voice, Reports dizziness, Reports headache(s), Denies neck pain, Denies sore throat and Denies throat swelling Cardiovascular Cardiovascular: Denies chest pain, Denies irregular heart rhythm, Denies lightheadedness, Denies palpitations, Denies dyspnea, Denies dyspnea on exertion and Denies orthopnea Respiratory Respiratory: Denies cough, Denies dyspnea, Denies dyspnea on exertion and Denies wheezing Gastrointestinal Gastrointestinal: Denies abdominal pain, Denies change in bowel habits, Denies diarrhea, Denies nausea and Denies vomiting Musculoskeletal Musculoskeletal: Denies neck pain and Denies numbness Integumentary/Breasts Skin/Breast: Denies pruritus, Denies erythema, Denies rash and Denies wounds Neurologic Neurologic: Denies behavioral changes, Denies confusion, Reports dizziness, Denies frequent falls, Reports headache(s), Denies loss of vision, Denies numbness and Denies weakness Psychiatric Psychiatric: Denies anxiety, Denies behavioral changes, Denies confusion, Denies depression, Denies homicidal ideation and Denies suicidal ideation Endocrine Endocrine: Denies fatigue, Denies flushing and Denies palpitations Hematologic/Lymphatic Hematologic/Lymphatic: Denies easy bruising Allergic/Immunologic Allergic/Immunologic: Denies urticaria, Denies throat swelling and Denies wheezing Patient History Medical History Atrial fibrillation (Acute) Diabetes (Acute) Hyperlipidemia (Acute) Hypertension (Acute) Social History Smoking Status: Former smoker Smoking Status: Former smoker Substance Use Type: does not use Exam Narrative Exam Narrative: GENERAL: [68] year old patient appears stated age. Well-nourished, well-developed patient, in mild distress. HEAD: Atraumatic. Normocephalic. EYES: Pupils equal round and reactive. Extraocular motions intact. No scleral icterus. No injection or drainage. ENT: Nose without bleeding, purulent drainage. Throat without erythema, tonsillar hypertrophy or exudate. Airway patent. NECK: Trachea midline. Non tender CARDIOVASCULAR: Regular rate and rhythm without murmurs, gallops, or rubs. RESPIRATORY: Clear to auscultation. Breath sounds equal bilaterally. No wheezes, rales, or rhonchi. GASTROINTESTINAL: Abdomen soft, non-tender, nondistended. EXTREMITIES: No edema or joint tenderness. BACK: Nontender without deformity or crepitance. No flank tenderness. NEURO: AOx3. SKIN: No rash or erythema of visible areas NIH Stroke Scale 1a. LOC: Patient is alert and keenly responsive (0) 1b. LOC Questions: Patient answers both LOC questions accurately (0) 1c. LOC Commands: Patient performs both tasks correctly (0) 2. Best Gaze: Normal (0) 3. Visual: No visual loss (0) 4. Facial palsy: Normal symmetrical movements (0) 5. Motor arm: No drift (0) 6. Motor leg: No drift (0) 7. Limb ataxia: Absent (0) 8. Sensory: Normal (0) 9. Best language: No aphasia; normal (0) 10. Dysarthria: Normal (0) 11. Extinction and inattention: No abnormality (0) NIHSS: 0 Initial Vital Signs Initial Vital Signs: Vital Signs Pulse Oximetry 97 09/04/19 21:55 Course Orders Ordered: ED Orders 09/04/19 21:56 EKG-12 Lead Stat 09/04/19 22:08 Complete Blood Count AUTO DIFF Stat Comprehensive Metabolic Panel Stat Lipase Stat Troponin & CK Cardiac Panel Stat 09/04/19 22:31 CT head/brain wo con Stat 09/05/19 00:14 Troponin I Stat Sodium Chloride (Normal Saline 0.9%) 1,000 mls @ 150 mls/hr IV CONT DAYDAY Last Admin: 09/04/19 23:06 Dose: 150 mls/hr Documented by: DESI Discontinued Medications Labetalol HCl (Trandate) 10 mg IV NOW ONE Stop: 09/04/19 22:47 Last Admin: 09/04/19 23:06 Dose: 10 mg Documented by: DESI Vital Signs Vital signs: Vital Signs - 8 hr 09/04/19 21:55 09/04/19 21:56 09/04/19 22:00 Temperature Pulse Rate 68 66 Respiratory Rate Blood Pressure 224/100 H Pulse Oximetry 97 98 96 09/04/19 22:09 09/04/19 22:30 09/04/19 22:31 Temperature Pulse Rate 63 63 63 Respiratory Rate 14 20 22 Blood Pressure 211/86 H 225/100 H Pulse Oximetry 97 96 97 09/04/19 22:34 09/04/19 23:00 09/04/19 23:01 Temperature 97.7 F Pulse Rate 64 65 Respiratory Rate 20 18 Blood Pressure 224/100 H 217/96 H Pulse Oximetry 98 97 09/04/19 23:06 09/05/19 00:30 Temperature Pulse Rate 68 60 Respiratory Rate 19 Blood Pressure 217/96 H 201/77 H Pulse Oximetry 99 MDM - Dizziness Lab Data Result diagrams: 09/04/19 22:08 09/04/19 22:08 Labs: Lab Results 09/04/19 09/04/19 09/05/19 Range/Units 22:08 22:08 00:14 WBC 7.2 (4.5-11.0) X10^3/uL RBC 4.20 (4.0-5.2) X10^6/uL Hgb 13.6 (12.0-16.0) g/dL Hct 40.2 (36-46) % MCV 95.7 (80-100) fL MCH 32.4 (26-34) PG MCHC 33.8 (30-36) % RDW 12.5 (11.6-14.8) % Plt Count 233 (150-400) X10^3/uL Neut % (Auto) 55.1 (50-75) % Lymph % (Auto) 32.7 (25-40) % [place] % (Auto) 7.5 (3-14) % Eos % (Auto) 4.4 H (2-4) % Baso % (Auto) 0.3 (0-2) % Neut # (Auto) 4000 (5099-1318) /uL Lymph # (Auto) 2400 (4517-0571) /uL [place] # (Auto) 500 (0-900) /uL Eos # (Auto) 300 (0-450) /uL Baso # (Auto) 0 (0-100) /uL Sodium 138 (137-145) mmol/L Potassium 4.0 (3.4-5.1) mmol/L Chloride 99 (98-107) mmol/L Carbon Dioxide 30 (22-32) mmol/L BUN 26 H (7-17) mg/dL Creatinine 1.18 H (0.52-1.04) mg/dL Estimated GFR 45.4 L (>60) mL/min BUN/Creatinine Ratio 22.0 (6-22) Glucose 118 H (80-110) mg/dL Calcium 10.5 H (8.4-10.2) mg/dL Total Bilirubin 0.4 (0.2-1.3) mg/dL AST 35 (14-36) IU/L ALT 23 (<35) IU/L Alkaline Phosphatase 89 (38-126) U/L Total Creatine Kinase 174 H (30-135) U/L CK-MB (CK-2) 2.16 (<2.37) ng/mL CK-MB (CK-2) Rel Index 1.2 L (1.5-5.0) % Troponin I 0.026 0.021 (0.01-0.034) ng/mL Total Protein 8.7 H (6.3-8.2) g/dL Albumin 4.7 (3.5-5.0) g/dL Globulin 4.0 (1.7-4.1) g/dL Albumin/Globulin Ratio 1.2 (1.0-2.8) Lipase 459 H (23-300) U/L Imaging Data CT scan - head: Radiologist's Impression: NAP ECG Data Attestation: I personally reviewed and interpreted this ECG as follows: Prior ECG tracings: not available for review Interpretation: EKG is normal sinus rhythm rate [ 65] and free of any signs of ischemia or ectopy. No ST segmental elevation or depression. No T wave inversions MDM Narrative Medical decision making narrative: Multiple etiologies for patient's symptoms considered including: [Stroke versus hypertensive urgency versus inner ear problem. Patient had tremendous resolution of symptoms after above-stated therapies, symptoms were completely reproducible and positional.] Patient's symptoms improved or duration of stay with above-stated therapies. Findings and discharge diagnosis discussed with patient/family followed by verbalization of understanding Return precautions discussed with patient/family whom verbalize understanding. Discharge Plan Departure Patient Disposition: Home Clinical Impression: Dizziness Hypertension Qualifiers: Hypertension type: essential hypertension Qualified Code(s): I10 - Essential (primary) hypertension Instructions: DI for Dizziness-Nonvertigo Activity Restrictions/Additional Instructions: *You have been diagnosed with [dizziness and hypertension] *What to do: *Take medications as directed *Follow up with your primary care provider in 2-3 days, call for an appointment. Let them know you were seen in the Emergency Department and that we ask that you be seen in follow up *Return to ER if you should have any new, worsening or concerning symptoms Prescriptions: No Action simvastatin 20 mg tablet 20 mg PO QPM RF: 0 warfarin [Coumadin] 5 mg tablet 2.5 mg PO DAILY RF: 0 benzonatate [Tessalon Perles] 100 mg capsule 100 mg PO BID PRN (Reason: cough) Qty: 14 RF: 0 metformin [Glucophage XR] 500 MG tablet extended release 24 hr 500 mg PO QDAY Qty: 0 RF: 0 allopurinol 300 mg tablet 300 mg PO DAILY RF: 0 metoprolol tartrate 100 mg tablet 150 mg PO DAILY RF: 0 amlodipine 5 mg tablet 5 mg PO DAILY Qty: 14 RF: 0
[2019-09-04 22:17] LABS: Add Manual Diff / Slide Review NO; Basophils Absolute Auto 0 /uL (0-100); Basophils Percent Auto 0.3 % (0-2); Eosinophils Absolute Auto 300 /uL (0-450); Eosinophils Percent Auto 4.4 % (2-4); Hematocrit 40.2 % (36-46); Hemoglobin 13.6 g/dL (12.0-16.0); Lymphocytes Absolute Auto 2400 /uL (1100-4500); Lymphocytes Percent Auto 32.7 % (25-40); Mean Corpuscular HGB Conc 33.8 % (30-36); Mean Corpuscular Hemoglobin 32.4 PG (26-34); Mean Corpuscular Volume 95.7 fL (80-100); Monocytes Absolute Auto 500 /uL (0-900); Monocytes Percent Auto 7.5 % (3-14); Neutrophils Absolute Auto 4000 /uL (1500-7000); Neutrophils Percent Auto 55.1 % (50-75); Platelet Count 233 X10^3/uL (150-400); Red Cell Distribution Width 12.5 % (11.6-14.8); White Blood Cell Count 7.2 X10^3/uL (4.5-11.0)
[2019-09-04 22:26] LABS: Alanine Aminotransferase 23 IU/L (<35); Albumin 4.7 g/dL (3.5-5.0); Albumin Globulin Ratio 1.2 (1.0-2.8); Alkaline Phosphatase 89 U/L (38-126); Aspartate Aminotransferase 35 IU/L (14-36); Bilirubin Total 0.4 mg/dL (0.2-1.3); Blood Urea Nitrogen 26 mg/dL (7-17); Calcium 10.5 mg/dL (8.4-10.2); Carbon Dioxide 30 mmol/L (22-32); Chloride 99 mmol/L (98-107); Creatine Kinase 174 U/L (30-135); Estimated Glomerular Filt Rate 45.4 mL/min (>60); Glucose 118 mg/dL (80-110); HEMOLYSIS < 15 (0-50); Lipase 459 U/L (23-300); Sodium 138 mmol/L (137-145); Total Protein 8.7 g/dL (6.3-8.2)
--- NOTE | 2019-09-04 22:31 | DI.CT.S_ITS ---
PROCEDURE: CT HEAD/BRAIN WO CON INDICATIONS: headache, spinning, HTN TECHNIQUE: Noncontrast 4.5 mm thick angled axial sections acquired from the foramen magnum to the vertex, with coronal and sagittal reformats. For radiation dose reduction, the following was used: automated exposure control, adjustment of mA and/or kV according to patient size. COMPARISON: None. FINDINGS: Image quality: Excellent. CSF spaces: Basal cisterns are patent. No extra-axial fluid collections. The ventricles are symmetric in size and shape. Brain: No intracranial bleeds or masses. There is cerebral volume loss for age, with resultant ventricular and sulcal prominence. There are periventricular and deep white matter chronic small vessel ischemic changes. There is intracranial internal carotid artery atherosclerosis. Skull and face: Calvarium and visualized facial bones appear intact, without suspicious lesions. Sinuses: Visualized sinuses and mastoids are clear. IMPRESSION: No acute intracranial disease process. Dictated by: Salena Villanueva MD, PhD on 09/05/2019 at 7:21 Approved by: Salena Villanueva MD, PhD on 09/05/2019 at 7:22
[2019-09-04 22:38] LABS: Troponin I 0.026 ng/mL (0.01-0.034)
[2019-09-04 22:41] LABS: CKMB % Relative Index 1.2 % (1.5-5.0); Creatine Kinase MB 2.16 ng/mL (<2.37)
[2019-09-04] MEDS: LABETALOL 20 MG/4 ML SYRINGE 10 MG IV (23:06)
[2019-09-04] MEDS: SODIUM CHLORIDE 0.9% 1,000 ML 150 ML IV (23:06)
[2019-09-05] VITALS (7 sets, daily range): BP systolic 198–201; BP diastolic 77–84; PULSE 59–62; RESP 13–19; O2SAT 96–99
[2019-09-05 00:47] LABS: Troponin I 0.021 ng/mL (0.01-0.034)
== END 2019-09-05 01:31 | disposition home or self-care (01) ==
PROVIDERS: Emergency Provider Emergency Medicine
DX: R42 Dizziness and giddiness (principal); I10 Essential (primary) hypertension; R51 Headache
CPT/HCPCS: 36415; 70450; 80053; 82550; 82553; 83690; 84484; 85025; 93005; 96374; 99284

== ENCOUNTER 2019-10-24 05:54 | Emergency (ER) | payer MEDICARE, SELFPAY ==
[2019-10-24] VITALS (8 sets, daily range): BP systolic 135–173; BP diastolic 64–82; PULSE 57–66; RESP 17–18; TEMP 36.8; O2SAT 95–98; BMI 31.8
--- NOTE | 2019-10-24 05:59 | DI.RAD.S_ITS ---
PROCEDURE: XR CHEST 1V INDICATIONS: Chest pain TECHNIQUE: One view of the chest was acquired. COMPARISON: [facility], CR, XR CHEST 1V, 03/26/2019, 19:13. [facility], CR, XR CHEST 1V, 09/01/2018, 0:14. FINDINGS: Surgical changes and devices: None. Lungs and pleura: Lungs are mildly edematous. No pleural effusions or pneumothorax. Mediastinum: Mediastinal contours appear normal. Heart size is mildly enlarged. Bones and chest wall: No suspicious bony lesions. Overlying soft tissues appear unremarkable. IMPRESSION: Mild cardiomegaly, mild chronic CHF pattern. No pneumonia found. Dictated by: Adlen Quiñonez M.D. on 10/24/2019 at 8:19 Approved by: Alden Quiñonez M.D. on 10/24/2019 at 8:20
--- NOTE | 2019-10-24 06:20 | ED.CHESTPAIN ---
HPI - Chest Pain <DO Mariah Schulz Last Filed: 10/25/19 01:38> General Chief Complaint: Chest Pain Stated Complaint: pain in mid chest like food didn't go down Time Seen by Provider: 10/24/19 05:56 Source: patient Mode of arrival: Ambulatory Limitations: no limitations History of Present Illness HPI narrative: Patient is a 69-year-old female here for evaluation of epigastric abdominal pain. Patient states the symptoms started last evening at approximately 2000 hours. She states that she took some medicine to help her fall asleep at approximately midnight. She woke up this morning still having the symptoms. She states that the symptoms have been occurring off and on for the past several days especially at night. Denies any change in bowel habits. Has had some nausea and has some vomiting which she states does seem to improve her symptoms somewhat. She states that last night at work she was having the discomfort. Some coworkers told her drink some hot water which she did not do last evening but when she woke up this morning and still had the discomfort she drank some hot water. She states that this has completely resolved her symptoms. The time of evaluation she has no symptoms. She states that when the symptoms are at their worst she does get some heart fluttering. Related Data Home Medications Medication Instructions Recorded Confirmed metformin [Glucophage XR] 500 mg PO QDAY #0 05/25/17 12/13/18 simvastatin 20 mg tablet 20 mg PO QPM 08/08/17 12/13/18 warfarin 5 mg tablet 2.5 mg PO DAILY 08/08/17 12/13/18 allopurinol 300 mg PO DAILY 09/01/18 12/13/18 metoprolol tartrate 150 mg PO DAILY 09/01/18 12/13/18 Previous Rx's Medication Instructions Recorded benzonatate 100 mg capsule 100 mg PO BID PRN #14 cap 12/13/18 amlodipine 5 mg PO DAILY #14 tab 03/26/19 omeprazole 20 mg PO DAILY 30 Days #30 cap 10/24/19 Allergies Allergy/AdvReac Type Severity Reaction Status Date / Time No Known Drug Allergies Allergy Verified 09/04/19 22:34 Review of Systems <DO Mariah Schulz Last Filed: 10/25/19 01:38> Constitutional Constitutional: Denies fever(s) and Denies headache(s) ENT Ears, Nose, Mouth, and Throat: Denies headache(s) Cardiovascular Cardiovascular: Reports chest pain, Denies irregular heart rhythm, Denies lightheadedness and Denies dyspnea Comments: Palpitations Respiratory Respiratory: Denies cough and Denies dyspnea Gastrointestinal Gastrointestinal: Reports abdominal pain (Epigastric region), Denies change in bowel habits, Reports nausea and Reports vomiting Genitourinary Genitourinary: Denies dysuria Genitourinary: Denies dysuria Integumentary/Breasts Skin/Breast: Denies lesions and Denies rash Neurologic Neurologic: Denies behavioral changes and Denies headache(s) Psychiatric Psychiatric: Denies behavioral changes Hematologic/Lymphatic Hematologic/Lymphatic: Denies easy bleeding and Denies easy bruising Patient History <DO Mariah Schulz Last Filed: 10/25/19 01:38> Medical History Atrial fibrillation (Acute) Diabetes (Acute) Hyperlipidemia (Acute) Hypertension (Acute) Social History Smoking Status: Former smoker Smoking Status: Former smoker Substance Use Type: does not use Exam <DO Mariah Schulz Last Filed: 10/25/19 01:38> Initial Vital Signs Initial Vital Signs: Vital Signs Pulse Rate 66 10/24/19 06:02 Pulse Oximetry 96 10/24/19 06:02 Const General: cooperative, comfortable and well developed Limitations: mental status not altered HENMT Head: normal to inspection and normocephalic Resp Effort & Inspection: normal respiratory effort Auscultation: clear to auscultation bilaterally Cardio Rate: regular rate Rhythm: regular rhythm GI Inspection: non-distended Palpation: soft, No firm and No tender Skin Lesions: no lesions Rashes: no rashes Neuro General: patient alert and patient awake Cognition: normal cognition Speech: speech normal Sensory Exam: no sensory deficits noted Extrem General: normal to inspection and capillary refill normal Psych Appearance: grossly normal and well kempt <Collin Cooper MD - Last Filed: 10/24/19 08:18> Initial Vital Signs Initial Vital Signs: Vital Signs Pulse Rate 66 10/24/19 06:02 Pulse Oximetry 96 10/24/19 06:02 Scores <DO Mariah Schulz Last Filed: 10/25/19 01:38> GCS Vivien coma scale eye opening: Spontaneous [place] coma scale verbal response: Orientated Vivien coma scale motor response: Obey commands [place] coma scale total score: 15 Course <Patel Araujo DO - Last Filed: 10/25/19 01:38> Orders Ordered: ED Orders 10/24/19 05:59 XR chest 1V Stat EKG-12 Lead Stat 10/24/19 06:40 Complete Blood Count AUTO DIFF Stat Comprehensive Metabolic Panel Stat Lipase Stat Partial Thromboplastin Time Stat Prothrombin Time INR Stat Troponin & CK Cardiac Panel Stat Vital Signs Vital signs: Vital Signs - 8 hr 10/24/19 06:02 10/24/19 06:03 10/24/19 06:12 Temperature 98.2 F Pulse Rate 66 66 63 Respiratory Rate 17 Blood Pressure 173/82 H 173/82 H Pulse Oximetry 96 97 97 10/24/19 06:30 10/24/19 06:59 10/24/19 07:00 Temperature Pulse Rate 60 59 L Respiratory Rate Blood Pressure 142/65 H 141/70 H Pulse Oximetry 95 98 10/24/19 07:01 Temperature Pulse Rate 58 L Respiratory Rate Blood Pressure Pulse Oximetry 98 <Collin Cooper MD - Last Filed: 10/24/19 08:18> Course Course Narrative: I have accepted care of this patient from my partner, Dr. Araujo at change of shift. Patient has history of hypertension, hyperlipidemia, and IDDM, and AFib. She presented with epigastric discomfort, initially reported since yesterday. She now tells me that this has been going on for several days. She has no radiation of the pain. She has no associated dyspnea, weakness or dizziness. She is not experiencing palpitations. She has a chronic cough, she is not a smoker. She has no history of CHF. She's had no recent URI symptoms, fever, or sore throat. I have re-evaluated the patient. Heart is regular, no murmur. Lungs are clear. She has no peripheral edema or calf tenderness. She has no epigastric tenderness, apparently she was having epigastric tenderness upon her initial evaluation. Her cardiac workup is benign, it is noted the lipase is slightly high and her creatinine level is elevated. Symptoms are likely consistent with GERD. I have discharged her on Prilosec with instructions follow-up with her doctor. She may require repeat cardiac evaluation, she may require ongoing evaluation for acid reflux. She is instructed to return this or if symptoms escalate. [place] AVILES Orders Ordered: ED Orders 10/24/19 05:59 XR chest 1V Stat EKG-12 Lead Stat 10/24/19 06:40 Complete Blood Count AUTO DIFF Stat Comprehensive Metabolic Panel Stat Lipase Stat Partial Thromboplastin Time Stat Prothrombin Time INR Stat Troponin & CK Cardiac Panel Stat Vital Signs Vital signs: Vital Signs - 8 hr 10/24/19 06:02 10/24/19 06:03 10/24/19 06:12 Temperature 98.2 F Pulse Rate 66 66 63 Respiratory Rate 17 Blood Pressure 173/82 H 173/82 H Pulse Oximetry 96 97 97 10/24/19 06:30 10/24/19 06:59 10/24/19 07:00 Temperature Pulse Rate 60 59 L Respiratory Rate Blood Pressure 142/65 H 141/70 H Pulse Oximetry 95 98 10/24/19 07:01 Temperature Pulse Rate 58 L Respiratory Rate Blood Pressure Pulse Oximetry 98 MDM - Chest Pain <Patel Araujo DO - Last Filed: 10/25/19 01:38> Medical Records Data Attestation: I reviewed the patient's medical records. Lab Data Attestation: I reviewed the patient's lab results. Result diagrams: 10/24/19 06:40 10/24/19 06:40 Labs: Lab Results 10/24/19 10/24/19 10/24/19 Range/Units 06:40 06:40 06:40 WBC 6.4 (4.5-11.0) X10^3/uL RBC 3.96 L (4.0-5.2) X10^6/uL Hgb 12.4 (12.0-16.0) g/dL Hct 37.3 (36-46) % MCV 94.2 (80-100) fL MCH 31.4 (26-34) PG MCHC 33.3 (30-36) % RDW 12.8 (11.6-14.8) % Plt Count 192 (150-400) X10^3/uL Neut % (Auto) 52.9 (50-75) % Lymph % (Auto) 34.3 (25-40) % [place] % (Auto) 8.7 (3-14) % Eos % (Auto) 3.5 (2-4) % Baso % (Auto) 0.6 (0-2) % Neut # (Auto) 3400 (9269-7546) /uL Lymph # (Auto) 2200 (1805-0862) /uL [place] # (Auto) 600 (0-900) /uL Eos # (Auto) 200 (0-450) /uL Baso # (Auto) 0 (0-100) /uL PT 45.6 H (10.1-12.7) SECONDS INR 4.0 H (0.9-1.3) APTT 64 H D (26.4-36.2) SECONDS Sodium 135 L (137-145) mmol/L Potassium 3.8 (3.4-5.1) mmol/L Chloride 104 (98-107) mmol/L Carbon Dioxide 21 L (22-32) mmol/L BUN 44 H (7-17) mg/dL Creatinine 1.23 H (0.52-1.04) mg/dL Estimated GFR 43.2 L (>60) mL/min BUN/Creatinine Ratio 35.8 H (6-22) Glucose 129 H (80-110) mg/dL Calcium 9.4 (8.4-10.2) mg/dL Total Bilirubin 0.6 (0.2-1.3) mg/dL AST 28 (14-36) IU/L ALT 20 (<35) IU/L Alkaline Phosphatase 73 (38-126) U/L Total Creatine Kinase 118 (30-135) U/L CK-MB (CK-2) 1.56 (<2.37) ng/mL CK-MB (CK-2) Rel Index 1.3 L (1.5-5.0) % Troponin I < 0.012 (0.01-0.034) ng/mL Total Protein 8.0 (6.3-8.2) g/dL Albumin 4.2 (3.5-5.0) g/dL Globulin 3.8 (1.7-4.1) g/dL Albumin/Globulin Ratio 1.1 (1.0-2.8) Lipase 469 H (23-300) U/L Imaging Data Chest x-ray: Attestation: I personally reviewed and interpreted this imaging study as follows: My Impression: Bilateral patchy infiltrates, no pneumothorax, no free air into the diaphragm, no acute pathology ECG Data Attestation: I personally reviewed and interpreted this ECG as follows: Prior ECG tracings: not available for review Interpretation: Sinus rhythm Ventricular rate 80 Normal axis Normal QRS Normal QTC No ST T wave changes MDM Narrative Medical decision making narrative: symptom free at the time of my evaluation. care turned over to day provider at change of shift to follow up with labs and repeat troponin. <Collin Cooper MD - Last Filed: 10/24/19 08:18> Lab Data Labs: Lab Results 10/24/19 10/24/19 10/24/19 Range/Units 06:40 06:40 06:40 WBC 6.4 (4.5-11.0) X10^3/uL RBC 3.96 L (4.0-5.2) X10^6/uL Hgb 12.4 (12.0-16.0) g/dL Hct 37.3 (36-46) % MCV 94.2 (80-100) fL MCH 31.4 (26-34) PG MCHC 33.3 (30-36) % RDW 12.8 (11.6-14.8) % Plt Count 192 (150-400) X10^3/uL Neut % (Auto) 52.9 (50-75) % Lymph % (Auto) 34.3 (25-40) % [place] % (Auto) 8.7 (3-14) % Eos % (Auto) 3.5 (2-4) % Baso % (Auto) 0.6 (0-2) % Neut # (Auto) 3400 (7073-2234) /uL Lymph # (Auto) 2200 (2453-3647) /uL [place] # (Auto) 600 (0-900) /uL Eos # (Auto) 200 (0-450) /uL Baso # (Auto) 0 (0-100) /uL PT 45.6 H (10.1-12.7) SECONDS INR 4.0 H (0.9-1.3) APTT 64 H D (26.4-36.2) SECONDS Sodium 135 L (137-145) mmol/L Potassium 3.8 (3.4-5.1) mmol/L Chloride 104 (98-107) mmol/L Carbon Dioxide 21 L (22-32) mmol/L BUN 44 H (7-17) mg/dL Creatinine 1.23 H (0.52-1.04) mg/dL Estimated GFR 43.2 L (>60) mL/min BUN/Creatinine Ratio 35.8 H (6-22) Glucose 129 H (80-110) mg/dL Calcium 9.4 (8.4-10.2) mg/dL Total Bilirubin 0.6 (0.2-1.3) mg/dL AST 28 (14-36) IU/L ALT 20 (<35) IU/L Alkaline Phosphatase 73 (38-126) U/L Total Creatine Kinase 118 (30-135) U/L CK-MB (CK-2) 1.56 (<2.37) ng/mL CK-MB (CK-2) Rel Index 1.3 L (1.5-5.0) % Troponin I < 0.012 (0.01-0.034) ng/mL Total Protein 8.0 (6.3-8.2) g/dL Albumin 4.2 (3.5-5.0) g/dL Globulin 3.8 (1.7-4.1) g/dL Albumin/Globulin Ratio 1.1 (1.0-2.8) Lipase 469 H (23-300) U/L Discharge Plan Departure Patient Disposition: Home Clinical Impression: Atypical chest pain, Chest pain due to GERD, Renal insufficiency Discharge Date/Time: 10/24/19 08:18 Instructions: DI for Gastroesophageal Reflux Disease (GERD) Activity Restrictions/Additional Instructions: You have no evidence of a heart problem associated with her current lower chest pain. The pain you experienced earlier, and even the cough are likely from acid reflux. Follow-up with your doctor about the current discomfort, and your prior cardiac workup as well as ongoing treatment and evaluation for stomach problem. Prilosec 20 mg daily. Return to the ER if you have increasing pain, difficulty breathing, or weakness or dizziness. Prescriptions: New omeprazole 20 mg capsule,delayed release(DR/EC) 20 mg PO DAILY 30 Days Qty: 30 RF: 0 No Action simvastatin 20 mg tablet 20 mg PO QPM RF: 0 warfarin [Coumadin] 5 mg tablet 2.5 mg PO DAILY RF: 0 benzonatate [Tessalon Perles] 100 mg capsule 100 mg PO BID PRN (Reason: cough) Qty: 14 RF: 0 metformin [Glucophage XR] 500 MG tablet extended release 24 hr 500 mg PO QDAY Qty: 0 RF: 0 allopurinol 300 mg tablet 300 mg PO DAILY RF: 0 metoprolol tartrate 100 mg tablet 150 mg PO DAILY RF: 0 amlodipine 5 mg tablet 5 mg PO DAILY Qty: 14 RF: 0
[2019-10-24 06:47] LABS: Add Manual Diff / Slide Review NO; Basophils Absolute Auto 0 /uL (0-100); Basophils Percent Auto 0.6 % (0-2); Eosinophils Absolute Auto 200 /uL (0-450); Eosinophils Percent Auto 3.5 % (2-4); Hematocrit 37.3 % (36-46); Hemoglobin 12.4 g/dL (12.0-16.0); Lymphocytes Absolute Auto 2200 /uL (1100-4500); Lymphocytes Percent Auto 34.3 % (25-40); Mean Corpuscular HGB Conc 33.3 % (30-36); Mean Corpuscular Hemoglobin 31.4 PG (26-34); Mean Corpuscular Volume 94.2 fL (80-100); Monocytes Absolute Auto 600 /uL (0-900); Monocytes Percent Auto 8.7 % (3-14); Neutrophils Absolute Auto 3400 /uL (1500-7000); Neutrophils Percent Auto 52.9 % (50-75); Platelet Count 192 X10^3/uL (150-400); Red Blood Cell Count 3.96 X10^6/uL (4.0-5.2); Red Cell Distribution Width 12.8 % (11.6-14.8); White Blood Cell Count 6.4 X10^3/uL (4.5-11.0)
[2019-10-24 06:54] LABS: Prothrombin Time 45.6 SECONDS (10.1-12.7)
[2019-10-24 06:56] LABS: PTT Partial Thromboplastin Tim 64 SECONDS (26.4-36.2)
[2019-10-24 06:57] LABS: Alanine Aminotransferase 20 IU/L (<35); Albumin 4.2 g/dL (3.5-5.0); Albumin Globulin Ratio 1.1 (1.0-2.8); Alkaline Phosphatase 73 U/L (38-126); Aspartate Aminotransferase 28 IU/L (14-36); BUN Creatinine Ratio 35.8 (6-22); Bilirubin Total 0.6 mg/dL (0.2-1.3); Blood Urea Nitrogen 44 mg/dL (7-17); Calcium 9.4 mg/dL (8.4-10.2); Carbon Dioxide 21 mmol/L (22-32); Chloride 104 mmol/L (98-107); Creatine Kinase 118 U/L (30-135); Estimated Glomerular Filt Rate 43.2 mL/min (>60); Globulin 3.8 g/dL (1.7-4.1); Glucose 129 mg/dL (80-110); HEMOLYSIS < 15 (0-50); Lipase 469 U/L (23-300); Potassium 3.8 mmol/L (3.4-5.1); Sodium 135 mmol/L (137-145)
[2019-10-24 07:09] LABS: Troponin I < 0.012 ng/mL (0.01-0.034)
[2019-10-24 07:12] LABS: CKMB % Relative Index 1.3 % (1.5-5.0); Creatine Kinase MB 1.56 ng/mL (<2.37)
== END 2019-10-24 08:18 | disposition home or self-care (01) ==
PROVIDERS: Emergency Provider Emergency Medicine; Referring Provider Emergency Medicine
DX: N28.9 Disorder of kidney and ureter, unspecified (principal); R07.89 Other chest pain
CPT/HCPCS: 36415; 71045; 80053; 82550; 82553; 83690; 84484; 85025; 85610; 85730; 93005; 93010; 99284

== ENCOUNTER 2020-01-21 19:14 | Emergency (ER) | payer MEDICARE, SELFPAY ==
[2020-01-21] VITALS (14 sets, daily range): BP systolic 153–243; BP diastolic 75–120; PULSE 69–89; RESP 12–18; TEMP 36.8; O2SAT 95–98; BMI 27.9
--- NOTE | 2020-01-21 19:46 | DI.RAD.S_ITS ---
PROCEDURE: XR CHEST 1V INDICATIONS: HTN emergency TECHNIQUE: One view of the chest was acquired. COMPARISON: [facility], CR, XR CHEST 1V, 10/24/2019, 6:03. [facility], CR, XR CHEST 1V, 03/26/2019, 19:13. FINDINGS: Surgical changes and devices: None. Lungs and pleura: Lungs are clear. No pleural effusions or pneumothorax. Mediastinum: Mediastinal contours appear normal. Heart size appears enlarged, unchanged. Bones and chest wall: No suspicious bony lesions. Overlying soft tissues appear unremarkable. IMPRESSION: No acute cardiopulmonary abnormality identified. Prominent heart size. Dictated by: Narciso Archuleta M.D. on 01/21/2020 at 20:14 Approved by: Narciso Archuleta M.D. on 01/21/2020 at 20:16
--- NOTE | 2020-01-21 19:48 | ED_ITS ---
HPI - General Adult General Chief complaint: Hypertension Stated complaint: high BP Time Seen by Provider: 01/21/20 19:46 Source: patient Mode of arrival: Wheelchair Limitations: no limitations History of Present Illness HPI narrative: 69-year-old female former smoker with history of hypertension hyperlipidemia presents with her son in the chief complaint of a gradually worsening generalized headache over the past few hours. Additionally, she states that when she realized her head was hurting so bad she took her blood pressure and found it to be quite elevated despite taking all of her medications as directed. She denies any recent changes in the dosage of her medicines. She denies any recent injury nor fever or chills. She has no neurologic symptoms such as blurred vision, trouble with speech or numbness, tingling or weakness of her extremities. She denies chest pain or shortness of breath. She denies abdominal pain but has some minimal nausea. She denies any classic provocation or palliation of her headache. Onset (ago): hour(s) Location: head Radiation: non-radiation Severity: severe Quality: aching Pain Consistency: constant Relieving factors: none Exacerbating factors: none Treatments prior to arrival: none Related Data Home Medications Medication Instructions Recorded Confirmed metformin [Glucophage XR] 500 mg PO QDAY #0 05/25/17 12/13/18 simvastatin 20 mg tablet 20 mg PO QPM 08/08/17 12/13/18 warfarin 5 mg tablet 2.5 mg PO DAILY 08/08/17 12/13/18 allopurinol 300 mg PO DAILY 09/01/18 12/13/18 metoprolol tartrate 150 mg PO DAILY 09/01/18 12/13/18 Previous Rx's Medication Instructions Recorded benzonatate 100 mg capsule 100 mg PO BID PRN #14 cap 12/13/18 amlodipine 5 mg PO DAILY #14 tab 03/26/19 Allergies Allergy/AdvReac Type Severity Reaction Status Date / Time No Known Drug Allergies Allergy Verified 01/21/20 19:20 Review of Systems Constitutional Constitutional: Denies chills, Denies fatigue, Denies fever(s), Denies frequent falls, Reports headache(s), Denies lethargy and Denies weakness Eyes Eyes: Denies change in vision, Denies eye discharge, Denies irritation and Denies loss of vision ENT Ears, Nose, Mouth, and Throat: Denies change in voice, Denies dizziness, Reports headache(s), Denies neck pain, Denies sore throat and Denies throat swelling Cardiovascular Cardiovascular: Denies chest pain, Denies irregular heart rhythm, Denies lightheadedness, Denies palpitations, Denies dyspnea, Denies dyspnea on exertion and Denies orthopnea Respiratory Respiratory: Denies cough, Denies dyspnea, Denies dyspnea on exertion and Denies wheezing Gastrointestinal Gastrointestinal: Denies abdominal pain, Denies change in bowel habits, Denies diarrhea, Denies nausea and Denies vomiting Musculoskeletal Musculoskeletal: Denies neck pain and Denies numbness Integumentary/Breasts Skin/Breast: Denies pruritus, Denies erythema, Denies rash and Denies wounds Neurologic Neurologic: Denies behavioral changes, Denies confusion, Denies dizziness, Denies frequent falls, Reports headache(s), Denies loss of vision, Denies numbness and Denies weakness Psychiatric Psychiatric: Denies anxiety, Denies behavioral changes, Denies confusion, Denies depression, Denies homicidal ideation and Denies suicidal ideation Endocrine Endocrine: Denies fatigue, Denies flushing and Denies palpitations Hematologic/Lymphatic Hematologic/Lymphatic: Denies easy bruising Allergic/Immunologic Allergic/Immunologic: Denies urticaria, Denies throat swelling and Denies wheezing Patient History Medical History Atrial fibrillation Diabetes Hyperlipidemia Hypertension Social History Smoking Status: Former smoker Smoking Status: Former smoker alcohol intake frequency: holidays/special occasions only Substance Use Type: does not use Exam Narrative Exam Narrative: GENERAL: [69] year old patient appears stated age. Well-no urished, well-developed patient, in mild distress. Rubbing her head HEAD: Atraumatic. Normocephalic. EYES: Pupils equal round and reactive. Extraocular motions intact. No scleral icterus. No injection or drainage. ENT: Nose without bleeding, purulent drainage. Throat without erythema, tonsillar hypertrophy or exudate. Airway patent. NECK: Trachea midline. Non tender CARDIOVASCULAR: Regular rate and rhythm without murmurs, gallops, or rubs. RESPIRATORY: Clear to auscultation. Breath sounds equal bilaterally. No wheezes, rales, or rhonchi. GASTROINTESTINAL: Abdomen soft, non-tender, nondistended. EXTREMITIES: No edema or joint tenderness. BACK: Nontender without deformity or crepitance. No flank tenderness. NEURO: AOx3. SKIN: No rash or erythema of visible areas NIH Stroke Scale 1a. LOC: Patient is alert and keenly responsive (0) 1b. LOC Questions: Patient answers both LOC questions accurately (0) 1c. LOC Commands: Patient performs both tasks correctly (0) 2. Best Gaze: Normal (0) 3. Visual: No visual loss (0) 4. Facial palsy: Normal symmetrical movements (0) 5. Motor arm: No drift (0) 6. Motor leg: No drift (0) 7. Limb ataxia: Absent (0) 8. Sensory: Normal (0) 9. Best language: No aphasia; normal (0) 10. Dysarthria: Normal (0) 11. Extinction and inattention: No abnormality (0) NIHSS: 0 Initial Vital Signs Initial Vital Signs: Vital Signs Temperature 98.3 F 01/21/20 19:15 Pulse Rate 72 01/21/20 19:15 Respiratory Rate 15 01/21/20 19:15 Blood Pressure 243/120 H 01/21/20 19:15 Pulse Oximetry 97 01/21/20 19:15 Course Orders Ordered: Discontinued Medications Labetalol HCl (Labetalol 20 Mg/4 Ml Syringe) 10 mg IV NOW ONE Stop: 01/21/20 19:51 Last Admin: 01/21/20 20:00 Dose: 10 mg Documented by: SHOBHAARTSILVIA Labetalol HCl (Labetalol 20 Mg/4 Ml Syringe) 10 mg IV NOW ONE Stop: 01/21/20 20:33 Last Admin: 01/21/20 20:40 Dose: 10 mg Documented by: SHOBHAARTIN Vital Signs Vital signs: Vital Signs - 8 hr 01/21/20 22:00 01/21/20 22:10 Pulse Rate 82 69 Respiratory Rate 15 12 Blood Pressure 153/75 H 186/84 H Pulse Oximetry 97 97 Medical Decision Making Lab Data Result diagrams: 01/21/20 19:43 01/21/20 19:43 Labs: Lab Results 01/21/20 01/21/20 01/21/20 Range/Units 19:43 19:43 19:43 WBC 6.8 (4.5-11.0) X10^3/uL RBC 4.15 (4.0-5.2) X10^6/uL Hgb 12.9 (12.0-16.0) g/dL Hct 39.8 (36-46) % MCV 95.9 (80-100) fL MCH 31.1 (26-34) PG MCHC 32.4 (30-36) % RDW 13.0 (11.6-14.8) % Plt Count 221 (150-400) X10^3/uL Neut % (Auto) 52.0 (50-75) % Lymph % (Auto) 36.7 (25-40) % [place] % (Auto) 7.5 (3-14) % Eos % (Auto) 3.2 (2-4) % Baso % (Auto) 0.6 (0-2) % Neut # (Auto) 3500 (8025-7481) /uL Lymph # (Auto) 2500 (5486-4822) /uL [place] # (Auto) 500 (0-900) /uL Eos # (Auto) 200 (0-450) /uL Baso # (Auto) 0 (0-100) /uL PT 33.5 H (10.1-12.7) SECONDS INR 2.9 H (0.9-1.3) Sodium 138 (137-145) mmol/L Potassium 4.2 (3.4-5.1) mmol/L Chloride 102 (98-107) mmol/L Carbon Dioxide 30 (22-32) mmol/L BUN 20 H (7-17) mg/dL Creatinine 1.30 H (0.52-1.04) mg/dL Estimated GFR 40.5 L (>60) mL/min BUN/Creatinine Ratio 15.4 (6-22) Glucose 158 H (80-110) mg/dL Calcium 9.2 (8.4-10.2) mg/dL Total Bilirubin 0.5 (0.2-1.3) mg/dL AST 31 (14-36) IU/L ALT 23 (<35) IU/L Alkaline Phosphatase 84 (38-126) U/L Total Creatine Kinase 84 (30-135) U/L CK-MB (CK-2) TNP CK-MB (CK-2) Rel Index TNP Troponin I < 0.012 (0.01-0.034) ng/mL NT-Pro-B Natriuret Pep 424 H (<125) pg/mL Total Protein 8.8 H (6.3-8.2) g/dL Albumin 4.5 (3.5-5.0) g/dL Globulin 4.3 H (1.7-4.1) g/dL Albumin/Globulin Ratio 1.0 (1.0-2.8) Imaging Data CT scan - head: Radiologist's Impression: 30 Bora Navarro, DO Find Patient Imaging - Delaney Paredes 69 F 1950 ACTIVITY DATE EXAM STATUS AUTHOR 01/21/20 20:32 Signed Call,Narciso 01/21/20 19:46 Signed Call,[address] [id number] Scan ReportSigned Patient: Delaney Paredes DMR#: [id number]: 1950Acct:[id number]/Sex: 69 / FDate of Service: 01/21/20Loc: EDAccession Number: [id number] Procedure: CT head/brain wo con Ordering Provider: Bora Navarro D.O. PROCEDURE: CT HEAD/BRAIN WO CON INDICATIONS: severe headache. HTN emergency TECHNIQUE: Noncontrast 4.5 mm thick angled axial sections acquired from the foramen magnum to the vertex, with coronal and sagittal reformats. For radiation dose reduction, the following was used: automated exposure control, adjustment of mA and/or kV according to patient size. COMPARISON: [facility], CT, CT HEAD/BRAIN WO CON, 09/04/2019, 22:35. FINDINGS: Image quality: Excellent. CSF spaces: Basal cisterns are patent. No extra-axial fluid collections. Ventricles are normal in size and shape. Brain: No midline shift. No intracranial masses or hemorrhage. Clem[place]-white matter interface is normal. Skull and face: Calvarium and visualized facial bones are intact, without suspicious lesions. Sinuses: Visualized sinuses and mastoids are clear. IMPRESSION: No acute intracranial abnormality. Dictated by: Narciso Archuleta M.D. on 01/21/2020 at 20:59 Approved by: Narciso Archuleta M.D. on 01/21/2020 at 21:[address] [facility] Narrative Medical decision making narrative: Patient presents with significant headache and elevated blood pressure. She is given labetalol with improvements in blood pressure to the when he is in a complete resolution of symptoms. Head CT and blood work is very reassuring. Patient and family have had all their questions answered to their apparent satisfaction. Return precautions given. Discharge Plan Departure Patient Disposition: Home Clinical Impression: Hypertension Qualifiers: Hypertension type: essential hypertension Qualified Code(s): I10 - Essential (primary) hypertension Instructions: DI for High Blood Pressure Activity Restrictions/Additional Instructions: *You have been diagnosed with [high blood pressure and headache] *What to do: *Take medications as directed *Follow up with your primary care provider in 2-3 days, call for an appointment. Let them know you were seen in the Emergency Department and that we ask that you be seen in follow up *Return to ER if you should have any new, worsening or concerning symptoms Prescriptions: No Action simvastatin 20 mg tablet 20 mg PO QPM RF: 0 warfarin [Coumadin] 5 mg tablet 2.5 mg PO DAILY RF: 0 benzonatate [Tessalon Perles] 100 mg capsule 100 mg PO BID PRN (Reason: cough) Qty: 14 RF: 0 metformin [Glucophage XR] 500 MG tablet extended release 24 hr 500 mg PO QDAY Qty: 0 RF: 0 allopurinol 300 mg tablet 300 mg PO DAILY RF: 0 metoprolol tartrate 100 mg tablet 150 mg PO DAILY RF: 0 amlodipine 5 mg tablet 5 mg PO DAILY Qty: 14 RF: 0
[2020-01-21 20:00] LABS: Add Manual Diff / Slide Review NO; Basophils Absolute Auto 0 /uL (0-100); Basophils Percent Auto 0.6 % (0-2); Eosinophils Absolute Auto 200 /uL (0-450); Eosinophils Percent Auto 3.2 % (2-4); Hematocrit 39.8 % (36-46); Hemoglobin 12.9 g/dL (12.0-16.0); Lymphocytes Absolute Auto 2500 /uL (1100-4500); Lymphocytes Percent Auto 36.7 % (25-40); Mean Corpuscular HGB Conc 32.4 % (30-36); Mean Corpuscular Hemoglobin 31.1 PG (26-34); Mean Corpuscular Volume 95.9 fL (80-100); Monocytes Absolute Auto 500 /uL (0-900); Monocytes Percent Auto 7.5 % (3-14); Neutrophils Absolute Auto 3500 /uL (1500-7000); Platelet Count 221 X10^3/uL (150-400); Red Blood Cell Count 4.15 X10^6/uL (4.0-5.2); White Blood Cell Count 6.8 X10^3/uL (4.5-11.0)
[2020-01-21] MEDS: LABETALOL 20 MG/4 ML SYRINGE 10 MG IV ×2 (20:00→20:40)
[2020-01-21 20:12] LABS: INR 2.9 (0.9-1.3); Prothrombin Time 33.5 SECONDS (10.1-12.7)
[2020-01-21 20:17] LABS: Alanine Aminotransferase 23 IU/L (<35); Albumin 4.5 g/dL (3.5-5.0); Alkaline Phosphatase 84 U/L (38-126); Aspartate Aminotransferase 31 IU/L (14-36); BUN Creatinine Ratio 15.4 (6-22); Bilirubin Total 0.5 mg/dL (0.2-1.3); Blood Urea Nitrogen 20 mg/dL (7-17); Calcium 9.2 mg/dL (8.4-10.2); Carbon Dioxide 30 mmol/L (22-32); Chloride 102 mmol/L (98-107); Creatine Kinase 84 U/L (30-135); Estimated Glomerular Filt Rate 40.5 mL/min (>60); Globulin 4.3 g/dL (1.7-4.1); Glucose 158 mg/dL (80-110); HEMOLYSIS 31 (0-50); Potassium 4.2 mmol/L (3.4-5.1); Sodium 138 mmol/L (137-145); Total Protein 8.8 g/dL (6.3-8.2)
[2020-01-21 20:29] LABS: NT-proBNP (BNP-Adult 18+) 424 pg/mL (<125); Troponin I < 0.012 ng/mL (0.01-0.034)
--- NOTE | 2020-01-21 20:32 | DI.CT.S_ITS ---
PROCEDURE: CT HEAD/BRAIN WO CON INDICATIONS: severe headache. HTN emergency TECHNIQUE: Noncontrast 4.5 mm thick angled axial sections acquired from the foramen magnum to the vertex, with coronal and sagittal reformats. For radiation dose reduction, the following was used: automated exposure control, adjustment of mA and/or kV according to patient size. COMPARISON: [facility], CT, CT HEAD/BRAIN WO CON, 09/04/2019, 22:35. FINDINGS: Image quality: Excellent. CSF spaces: Basal cisterns are patent. No extra-axial fluid collections. Ventricles are normal in size and shape. Brain: No midline shift. No intracranial masses or hemorrhage. Clemons-white matter interface is normal. Skull and face: Calvarium and visualized facial bones are intact, without suspicious lesions. Sinuses: Visualized sinuses and mastoids are clear. IMPRESSION: No acute intracranial abnormality. Dictated by: Narciso Archuleta M.D. on 01/21/2020 at 20:59 Approved by: Narciso Archuleta M.D. on 01/21/2020 at 21:00
--- NOTE | 2020-01-21 21:49 | PC.NURSE ---
Patient states feeling better- feeling of fullness in head improves and no longer feel hot all over. Patient denies chest pain, dizziness, double vision, or headache. Current BP reading 162/77.
== END 2020-01-21 22:34 | disposition home or self-care (01) ==
PROVIDERS: Emergency Provider Emergency Medicine
DX: I10 Essential (primary) hypertension (principal); R51.9 Headache, unspecified
CPT/HCPCS: 36415; 70450; 71045; 80053; 82550; 83880; 84484; 85025; 85610; 93005; 96374; 96376; 99283; 99284

== ENCOUNTER → 2020-09-30 08:10 | Outpatient (CLI) | payer MEDICARE, SELFPAY ==
[2020-09-30 08:51] LABS: COVID19 -Nasal RAPID Negative (Negative)
== END ==
PROVIDERS: Visit Provider Physician Assistant
DX: R05 Cough (principal); J02.9 Acute pharyngitis, unspecified; Z20.822 Contact with and (suspected) exposure to COVID-19
CPT/HCPCS: 87070; 87635

== ENCOUNTER 2020-11-11 09:43 | Emergency (ER) | payer MEDICARE, SELFPAY ==
[2020-11-11] VITALS (8 sets, daily range): BP systolic 112–140; BP diastolic 57–74; PULSE 52–66; RESP 14–16; TEMP 36.2; O2SAT 94–97; BMI 33.1
--- NOTE | 2020-11-11 09:50 | ED_ITS ---
HPI - General Adult General Chief complaint: Arrhythmia/Palpitations Stated complaint: Weakness/hx of palps x2 days Time Seen by Provider: 11/11/20 09:50 History of Present Illness HPI narrative: 70-year-old woman with a past medical history significant for paroxysmal atrial fibrillation for which she is on warfarin and metoprolol, diabetes, hypertension hyperlipidemia she presents with mild weakness and a sensation of palpitations for the last 2 days and is concerned about COVID. She is vaccinated. She denies fevers, cough, chills, orthopnea she has very mild exertional dyspnea. There is no abdominal pain vomiting nausea no lower extremity edema. No specific neurologic findings aside from mild global weakness. Related Data Home Medications Medication Instructions Recorded Confirmed simvastatin 20 mg tablet 20 mg PO QPM 08/08/17 11/11/20 allopurinol 300 mg tablet 300 mg PO DAILY 09/01/18 11/11/20 metoprolol tartrate 100 mg tablet 150 mg PO DAILY 09/01/18 11/11/20 amlodipine 5 mg tablet 10 mg PO DAILY 11/11/20 11/11/20 cetirizine 10 mg tablet 10 mg PO DAILY 11/11/20 11/11/20 glimepiride 2 mg tablet 2 mg PO DAILY 11/11/20 11/11/20 losartan 50 mg tablet 50 mg PO DAILY 11/11/20 11/11/20 rivaroxaban 20 mg tablet (Xarelto) 20 mg PO DAILY 11/11/20 11/11/20 Previous Rx's Medication Instructions Recorded azelastine 137 mcg (0.1 %) nasal 1 spray INTRANASAL BID #30 ml 09/30/20 spray aerosol Allergies Allergy/AdvReac Type Severity Reaction Status Date / Time No Known Drug Allergies Allergy Verified 11/11/20 10:00 Review of Systems Review of Systems Narrative: Remainder of complete review of systems is otherwise unremarkable except for that included in the HPI. Patient History Medical History (Updated 11/11/20 @ 12:09 by Sydnie Mason MD) Atrial fibrillation Diabetes Hyperlipidemia Hypertension Social History Smoking Status: Former smoker Smoking Status: Former smoker alcohol intake frequency: holidays/special occasions only Substance Use Type: does not use Exam Narrative Exam Narrative: General: Healthy appearing, in no acute distress. Able to give a complete and coherent history. Well-nourished well-developed HEENT: Moist mucous membranes, normal sclera with reactive pupils, Neck: No JVD, supple Respiratory: Lungs are clear to auscultation, no wheezing no rales no rhonchi. Full and symmetrical air movement Cardiac: Mild bradycardia otherwise Regular rhythm no murmurs no bruits Abdomen: Soft, nontender, good bowel tones, no flank pain Skin: Warm and dry, no rashes Neurologic: Grossly neurologically intact with no obvious asymmetries or abnormalities Extremities: No trauma, well perfused, with no lower extremity edema Psych: Cooperative, appropriate insight and affect Initial Vital Signs Initial Vital Signs: Vital Signs Blood Pressure 140/67 11/11/20 09:53 Course Orders Ordered: ED Orders 11/11/20 09:56 XR chest 1V Stat COVID19 -Nasal swab/Pre-Proc Stat Complete Blood Count AUTO DIFF Stat Comprehensive Metabolic Panel Stat Magnesium Stat NT-proBNP (BNP-Adult 18+) Stat Troponin I Stat EKG-12 Lead Stat 11/11/20 10:06 Urinalysis and Microscopic Stat Vital Signs Vital signs: Vital Signs - 8 hr 11/11/20 09:53 11/11/20 09:54 11/11/20 09:55 Temperature 97.2 F L Pulse Rate 59 L 59 L Respiratory Rate 16 14 Blood Pressure 140/67 140/62 Pulse Oximetry 96 96 11/11/20 10:00 11/11/20 10:30 11/11/20 11:00 Temperature Pulse Rate 55 L 52 L 66 Respiratory Rate 16 14 15 Blood Pressure 112/57 L 115/59 L 115/66 Pulse Oximetry 95 96 94 11/11/20 11:30 Temperature Pulse Rate 64 Respiratory Rate 14 Blood Pressure 124/64 Pulse Oximetry 95 Medical Decision Making Lab Data Result diagrams: 11/11/20 09:56 11/11/20 09:56 Labs: Lab Results 11/11/20 11/11/20 11/11/20 Range/Units 09:56 09:56 09:56 WBC 6.8 (4.5-11.0) X10^3/uL RBC 4.57 (4.0-5.2) X10^6/uL Hgb 14.3 (12.0-16.0) g/dL Hct 43.3 (36-46) % MCV 94.7 (80-100) fL MCH 31.3 (26-34) PG MCHC 33.0 (30-36) % RDW 13.4 (11.6-14.8) % Plt Count 247 (150-400) X10^3/uL Neut % (Auto) 55.2 (50-75) % Lymph % (Auto) 32.8 (25-40) % [place] % (Auto) 7.5 (3-14) % Eos % (Auto) 3.7 (2-4) % Baso % (Auto) 0.8 (0-2) % Neut # (Auto) 3800 (9092-5505) /uL Lymph # (Auto) 2200 (7302-5409) /uL [place] # (Auto) 500 (0-900) /uL Eos # (Auto) 300 (0-450) /uL Baso # (Auto) 100 (0-100) /uL Sodium Cancelled 140 Potassium Cancelled 4.6 Chloride Cancelled 104 Carbon Dioxide Cancelled 25 BUN Cancelled 30 H Creatinine Cancelled 1.75 H Estimated GFR Cancelled 28.7 L BUN/Creatinine Ratio Cancelled 17.1 Glucose Cancelled 173 H Calcium Cancelled 10.0 Magnesium 2.1 (1.6-2.3) mg/dL Total Bilirubin Cancelled 0.7 AST Cancelled 44 H ALT Cancelled 37 H Alkaline Phosphatase Cancelled 94 Troponin I < 0.012 (0.01-0.034) ng/mL NT-Pro-B Natriuret Pep 1930 H (<125) pg/mL Total Protein Cancelled 8.8 H Albumin Cancelled 4.8 Globulin Cancelled 4.0 Albumin/Globulin Ratio Cancelled 1.2 Urine Color Urine Appearance Urine pH (4.5-8.0) Ur Specific [place] (1.000-1.035) Urine Protein (Negative) Urine Glucose (UA) (Negative) g/dL Urine Ketones (NEGATIVE) Urine Occult Blood (Negative) Urine Nitrate (Negative) Urine Bilirubin (NEGATIVE) Urine Urobilinogen (0.2) E.U./dL Ur Leukocyte Esterase (NEGATIVE) Urine RBC (0-5/HPF) Urine WBC (0-5/HPF) Ur Squamous Epith Cells (0-5/HPF) Urine Bacteria (None) Ur Culture Indicated? Micro UA Comment SARS-CoV-2 (PCR) (Negative) 11/11/20 11/11/20 Range/Units 09:56 10:06 WBC (4.5-11.0) X10^3/uL RBC (4.0-5.2) X10^6/uL Hgb (12.0-16.0) g/dL Hct (36-46) % MCV (80-100) fL MCH (26-34) PG MCHC (30-36) % RDW (11.6-14.8) % Plt Count (150-400) X10^3/uL Neut % (Auto) (50-75) % Lymph % (Auto) (25-40) % [place] % (Auto) (3-14) % Eos % (Auto) (2-4) % Baso % (Auto) (0-2) % Neut # (Auto) (6965-3507) /uL Lymph # (Auto) (5290-8024) /uL [place] # (Auto) (0-900) /uL Eos # (Auto) (0-450) /uL Baso # (Auto) (0-100) /uL Sodium Potassium Chloride Carbon Dioxide BUN Creatinine Estimated GFR BUN/Creatinine Ratio Glucose Calcium Magnesium (1.6-2.3) mg/dL Total Bilirubin AST ALT Alkaline Phosphatase Troponin I (0.01-0.034) ng/mL NT-Pro-B Natriuret Pep (<125) pg/mL Total Protein Albumin Globulin Albumin/Globulin Ratio Urine Color Yellow Urine Appearance Clear Urine pH 5.0 (4.5-8.0) Ur Specific [place] >=1.030 H (1.000-1.035) Urine Protein 2+ H (Negative) Urine Glucose (UA) Negative (Negative) g/dL Urine Ketones Negative (NEGATIVE) Urine Occult Blood Trace-lysed (Negative) Urine Nitrate Negative (Negative) Urine Bilirubin Negative (NEGATIVE) Urine Urobilinogen 0.2 (0.2) E.U./dL Ur Leukocyte Esterase 1+ H (NEGATIVE) Urine RBC 0-1/hpf (0-5/HPF) Urine WBC 1-5/hpf (0-5/HPF) Ur Squamous Epith Cells 10-30 /hpf H (0-5/HPF) Urine Bacteria Moderate (10-30) H (None) Ur Culture Indicated? Cult not indicated Micro UA Comment SARS-CoV-2 (PCR) Negative (Negative) Imaging Data Chest x-ray: Radiologist's Impression: FINDINGS: Surgical changes and devices: None. Lungs and pleura: Lungs are clear. No pleural effusions or pneumothorax. Mediastinum: Mediastinal contours appear normal. Heart size is normal. Bones and chest wall: No suspicious bony lesions. Overlying soft tissues appear unremarkable. IMPRESSION: No acute cardiopulmonary disease process. Dictated by: Salena Villanueva MD, PhD on 11/11/2020 at 10:33 ECG Data Interpretation: Sinus rhythm, bradycardia, at a rate of 50 Normal axis, normal intervals No acute ischemic changes MDM Narrative Medical decision making narrative: 70-year-old woman with complaints of intermittent palpitation and anxiety over COVID with increased fatigue and weakness. EKG shows sinus bradycardia at 50 and I am wondering if she has had a couple of episodes of paroxysmal atrial fibrillation to explain palpitations with relative bradycardia otherwise causing her overall fatigue. There is no evidence of acute clinical congestive heart failure with slightly elevated proBNP but no chest x-ray abnormalities. I do not suspect acute coronary syndrome, pneumonia or COVID. She does have a small bump in her creatinine from most recent comparison 1.3 up to 1.75. I am wondering if her overall bradycardia is contributing to the fatigue, slightly elevated proBNP and mild increase in her creatinine. Will ask her to decrease her metoprolol from 150 mg down to 100 mg daily. Will have her keep track of heart rate and blood pressure and schedule appointment with her primary provider within the next week or so to review medication changes and to see if she is feeling improved at all. At this time she is clinically stable and there is no indication for hospital admission. Discharge Plan Departure Patient Disposition: Home Clinical Impression: Bradycardia, Paroxysmal A-fib, Acute kidney injury, Elevated brain natriuretic peptide (BNP) level Instructions: DI for Atrial Fibrillation, DI for Bradycardia Activity Restrictions/Additional Instructions: Thank you for coming in today You do not have COVID. Your heart rate is quite slow today and there is a slight worsening to your ki dney function and looks like there may be a minor accumulation of fluid developing in your lungs. You are on all of the correct blood pressure and heart rate control medications particularly if your heart rate is going fast or you are in atrial fibrillation. I am concerned that you when you are back in a normal sinus rhythm, your heart rate is too slow and that is what is causing your symptoms. Currently you take 1 and half pills of metoprolol, 150 mg. I am going to asked you to go down to 1 pill or 100 mg of metoprolol. You will need to keep track of your blood pressure and your heart rate. Please check this every day 2-3 hours after you take her morning medications. Keep track of these numbers so that you can review them with your primary care doctor after you schedule an appointment with her for next week. Please let her know about the medication changes and let her know how you are feeling. I have given you copies of the lab work done today to share with your primary care doctor with the appointment you will schedule next week If you have worsening symptoms concerns or complaints, please return to the ER Prescriptions: No Action azelastine 137 mcg (0.1 %) aerosol,spray 1 spray intranasal BID Qty: 30 RF: 0 simvastatin 20 mg tablet 20 mg PO QPM RF: 0 allopurinol 300 mg tablet 300 mg PO DAILY RF: 0 metoprolol tartrate 100 mg tablet 150 mg PO DAILY RF: 0 Xarelto 20 mg tablet 20 mg PO DAILY RF: 0 amlodipine 5 mg tablet 10 mg PO DAILY RF: 0 cetirizine 10 mg tablet 10 mg PO DAILY RF: 0 glimepiride 2 mg tablet 2 mg PO DAILY RF: 0 losartan 50 mg tablet 50 mg PO DAILY RF: 0 Referrals: Emma Blake PA-C [Primary Care Provider] -
--- NOTE | 2020-11-11 09:56 | DI.RAD.S_ITS ---
PROCEDURE: XR CHEST 1V INDICATIONS: chest pain TECHNIQUE: One view of the chest was acquired. COMPARISON: [facility], CR, XR CHEST 1V, 01/21/2020, 19:47. FINDINGS: Surgical changes and devices: None. Lungs and pleura: Lungs are clear. No pleural effusions or pneumothorax. Mediastinum: Mediastinal contours appear normal. Heart size is normal. Bones and chest wall: No suspicious bony lesions. Overlying soft tissues appear unremarkable. IMPRESSION: No acute cardiopulmonary disease process. Dictated by: Salena Villanueva MD, PhD on 11/11/2020 at 10:33 Approved by: Salena Villanueva MD, PhD on 11/11/2020 at 10:33
[2020-11-11 10:10] LABS: Add Manual Diff / Slide Review NO; Basophils Absolute Auto 100 /uL (0-100); Basophils Percent Auto 0.8 % (0-2); Eosinophils Absolute Auto 300 /uL (0-450); Eosinophils Percent Auto 3.7 % (2-4); Hematocrit 43.3 % (36-46); Hemoglobin 14.3 g/dL (12.0-16.0); Lymphocytes Absolute Auto 2200 /uL (1100-4500); Lymphocytes Percent Auto 32.8 % (25-40); Mean Corpuscular Hemoglobin 31.3 PG (26-34); Mean Corpuscular Volume 94.7 fL (80-100); Monocytes Absolute Auto 500 /uL (0-900); Monocytes Percent Auto 7.5 % (3-14); Neutrophils Absolute Auto 3800 /uL (1500-7000); Neutrophils Percent Auto 55.2 % (50-75); Platelet Count 247 X10^3/uL (150-400); Red Blood Cell Count 4.57 X10^6/uL (4.0-5.2); Red Cell Distribution Width 13.4 % (11.6-14.8); White Blood Cell Count 6.8 X10^3/uL (4.5-11.0)
[2020-11-11 10:26] LABS: Alanine Aminotransferase 37 IU/L (<35); Albumin 4.8 g/dL (3.5-5.0); Albumin Globulin Ratio 1.2 (1.0-2.8); Alkaline Phosphatase 94 U/L (38-126); Aspartate Aminotransferase 44 IU/L (14-36); BUN Creatinine Ratio 17.1 (6-22); Bilirubin Total 0.7 mg/dL (0.2-1.3); Blood Urea Nitrogen 30 mg/dL (7-17); Carbon Dioxide 25 mmol/L (22-32); Chloride 104 mmol/L (98-107); Estimated Glomerular Filt Rate 28.7 mL/min (>60); Glucose 173 mg/dL (80-110); HEMOLYSIS < 15 (0-50); Magnesium 2.1 mg/dL (1.6-2.3); Potassium 4.6 mmol/L (3.4-5.1); Sodium 140 mmol/L (137-145); Total Protein 8.8 g/dL (6.3-8.2)
[2020-11-11 10:37] LABS: NT-proBNP (BNP-Adult 18+) 1930 pg/mL (<125); Troponin I < 0.012 ng/mL (0.01-0.034)
[2020-11-11 10:39] LABS: COVID19 -Nasal RAPID Negative (Negative)
[2020-11-11 10:42] LABS: Appearance Urine UA CLEAR; Bilirubin Urine UA NEGATIVE (NEGATIVE); Color Urine UA YELLOW; Glucose Urine UA NEGATIVE (Negative); Ketones Urine UA NEGATIVE (NEGATIVE); Leukocyte Esterase Urine UA 1+ (NEGATIVE); Nitrite Urine UA NEGATIVE (Negative); Occult Blood Urine UA TRACE-LYSED (Negative); Protein Urine UA 2+ (Negative); Specific Gravity Urine UA >=1.030 (1.000-1.035); Urobilinogen Urine UA 0.2 E.U./dL (0.2)
[2020-11-11 10:48] LABS: RBC Urine 0-1/HPF (0-5/HPF)
[2020-11-11 10:49] LABS: Bacteria Urine Moderate (10-30); Culture Indicated Urine Cult Not Indicated; Squamous Epithelial Cell Urine 10-30 /HPF (0-5/HPF); WBC Urine 1-5/HPF (0-5/HPF)
== END 2020-11-11 12:25 | disposition home or self-care (01) ==
PROVIDERS: Emergency Provider Emergency Medicine; PCP Physician Assistant Medical
DX: I48.0 Paroxysmal atrial fibrillation (principal); Z79.01 Long term (current) use of anticoagulants; R00.1 Bradycardia, unspecified; R79.89 Other specified abnormal findings of blood chemistry; R07.9 Chest pain, unspecified; Z20.822 Contact with and (suspected) exposure to COVID-19
CPT/HCPCS: 36415; 71045; 80053; 81001; 83735; 83880; 84484; 85025; 87635; 93005; 99283; 99284; C9803

== ENCOUNTER 2021-01-09 02:12 | Emergency (ER) | payer MEDICARE, SELFPAY ==
[2021-01-09 02:24] VITALS: BP 192/77; PULSE 79; RESP 18; TEMP 36.7; O2SAT 94; BMI 34.2
--- NOTE | 2021-01-09 02:36 | ED.EPISTAXIS ---
HPI - Epistaxis General Chief complaint: Nasal Problem Stated complaint: nose bleed x15 min Time Seen by Provider: 01/09/21 02:19 Source: patient Mode of arrival: Ambulatory Limitations: no limitations History of Present Illness HPI Narrative: This is a 70-year-old female comes emergency department with complaint of epistaxis. Patient has had 1 prior episode where she woke up with blood from her nose but had already stopped when she had awakened. This evening she started having bleeding while she was at work. She is on Xarelto. She states it was from the left side. She felt a little lightheaded earlier but does not now. She denies any chest pain or shortness of breath. She denies any nausea or vomiting. She denies any recent, cold or allergies or other changes. Patient did not perform any interventions prior to arrival. A history of paroxysmal atrial fibrillation, diabetes, hypertension and dyslipidemia. She denies allergies to medications. Related Data Home Medications Medication Instructions Recorded Confirmed simvastatin 20 mg tablet 20 mg PO QPM 08/08/17 11/11/20 allopurinol 300 mg tablet 300 mg PO DAILY 09/01/18 11/11/20 metoprolol tartrate 100 mg tablet 150 mg PO DAILY 09/01/18 11/11/20 amlodipine 5 mg tablet 10 mg PO DAILY 11/11/20 11/11/20 cetirizine 10 mg tablet 10 mg PO DAILY 11/11/20 11/11/20 glimepiride 2 mg tablet 2 mg PO DAILY 11/11/20 11/11/20 losartan 50 mg tablet 50 mg PO DAILY 11/11/20 11/11/20 rivaroxaban 20 mg tablet (Xarelto) 20 mg PO DAILY 11/11/20 11/11/20 Previous Rx's Medication Instructions Recorded azelastine 137 mcg (0.1 %) nasal 1 spray INTRANASAL BID #30 ml 09/30/20 spray aerosol Allergies Allergy/AdvReac Type Severity Reaction Status Date / Time No Known Drug Allergies Allergy Verified 11/11/20 10:00 Review of Systems Review of Systems ROS Unobtainable: All systems reviewed & are unremarkable except as noted in HPI and below Patient History Medical History (Updated 01/09/21 @ 02:41 by Katie Bowden DO) Atrial fibrillation Diabetes Hyperlipidemia Hypertension Social History Smoking Status: Former smoker Smoking Status: Former smoker alcohol intake frequency: holidays/special occasions only Substance Use Type: does not use Exam Narrative Exam Narrative: GEN: Elderly female, alert and oriented x 3, patient appears to be in mild distress. HEENT: Atraumatic, pupils are equal round reactive to light, extraocular movements are intact, nares right near has 1 small spot of dried blood, left near has no active bleeding but caked dried blood within the [place], throat is clear without any exudates, erythema, tonsillar enlargement or uvular deviation HEART: Regular rate and rhythm without murmur, clicks, rubs. LUNGS:Lungs clear to auscultation, no wheezes, rales, crackles, chest moves symmetrically ABD:bowel sounds normal, soft, non-tender, no guarding, rebound, rigidity, no masses noted, no hepatosplenomegaly MSCL: Non-tender, full range of motion, normal gait NEURO:CN 2-12 intact, sensation normal Initial Vital Signs Initial Vital Signs: Vital Signs Temperature 98.0 F 01/09/21 02:24 Pulse Rate 79 01/09/21 02:24 Respiratory Rate 18 01/09/21 02:24 Blood Pressure 192/77 H 01/09/21 02:24 Pulse Oximetry 94 01/09/21 02:24 Course Orders Ordered: Discontinued Medications Oxymetazoline HCl (Oxymetazoline Nasal [place] 15 Ml) 2 sprays NASAL NOW ONE Stop: 01/09/21 02:21 Last Admin: 01/09/21 03:36 Dose: 2 sprays Documented by: JANAK Reevaluation(s) Reevaluation #1: Patient has not had any bleeding after arrival she had to course of Afrin to each side of her nose and clamp for 15 minutes as a precautionary measure. She has had that off for 45 minutes without any additional bleeding. Patient and boyfriend feel comfortable returning home. Afrin and nasal clamp were given to them as well as return precautions and ways she can help control any bleeding at home. All questions answered. Time: 03:23 Vital Signs Vital signs: Vital Signs - 8 hr 01/09/21 02:24 01/09/21 03:43 Temperature 98.0 F Pulse Rate 79 73 Respiratory Rate 18 18 Blood Pressure 192/77 H 184/76 H Pulse Oximetry 94 97 MDM - Epistaxis MDM Narrative Medical decision making narrative: 70-year-old female with epistaxis that had resolved prior to arrival. Patient is on Xarelto making him likely. Appear to be from the left [place]. Patient had Afrin and nasal clamp applied for about 15 minutes to prevent recurrence. Source was not found but patient was monitored for additional 45 minutes with no more bleeding. Return precautions discussed. This time would have patient continue her Xarelto she takes it for atrial fibrillation and is high risk for stroke without it. Discharge Plan Departure Patient Disposition: Home Clinical Impression: Epistaxis Instructions: DI for Nosebleed Activity Restrictions/Additional Instructions: Follow-up with the ENT specialist provided. Follow directions as noted below. Return to emergency department if self-care directions do not work and urine able to stop the bleeding, or if you become lightheaded, began vomiting. Use medications as directed. You can spray 2 squirts of aspirin on the side that is bleeding or if you cannot tell which side is bleeding you can put on both sides of your nose. Nosebleed self-care - With the right self-care, most nosebleeds stop on their own. Here's what you should do: 1. Blow your nose. This might increase the bleeding for a moment, but that's OK. 2. Sit or stand while bending forward a little at the waist. DO NOT lie down or tilt your head back. 3. Pinch the soft area towards the bottom of your nose, below the bone (picture 1). DO NOT chicken boner the bridge of your nose between your eyes. That will not work. DO NOT press on just 1 side, even if the bleeding is only on 1 side. That will not work either. 4. Squeeze your nose shut for at least 15 minutes. (In children, squeeze for only 5 minutes.) Use a clock to time yourself. Do not release the pressure before the time is up to check if the bleeding has stopped. If you keep checking, you will ruin your chances of getting the bleeding to stop. If you follow these steps, and your nose keeps bleeding, repeat all the steps once more. Apply pressure for a total of at least 30 minutes (or 10 minutes for children). If you are still bleeding, go to the emergency room or an urgent care clinic. What if I get repeated nosebleeds? - Frequent nosebleeds can be caused by: Breathing dry air all the time Using cold or allergy nasal sprays too much Frequent colds Snorting drugs into your nose, such as cocaine In some cases, repeat nosebleeds can be a sign that your blood does not clot like it should. If that is the case, there are often other clues. For instance, people with clotting problems bruise easily and might bleed more than you would expect after a small cut or scrape. Nosebleed treatment - If you end up seeing a doctor or nurse for your nosebleed, he or she will make sure you can breathe OK. Then he or she will try to get the bleeding to stop. To do that, he or she might have to put a device or some packing material up your nose. What can I do to keep from getting nosebleeds? - You can: Use a humidifier (a machine that makes the air less dry) in your bedroom when you sleep Keep the inside of your nose moist with a nasal saline spray or gel Not pick your nose, or at least clip your nails before you do to avoid injury Prescriptions: No Action azelastine 137 mcg (0.1 %) aerosol,spray 1 spray intranasal BID Qty: 30 RF: 0 simvastatin 20 mg tablet 20 mg PO QPM RF: 0 allopurinol 300 mg tablet 300 mg PO DAILY RF: 0 metoprolol tartrate 100 mg tablet 150 mg PO DAILY RF: 0 Xarelto 20 mg tablet 20 mg PO DAILY RF: 0 amlodipine 5 mg tablet 10 mg PO DAILY RF: 0 cetirizine 10 mg tablet 10 mg PO DAILY RF: 0 glimepiride 2 mg tablet 2 mg PO DAILY RF: 0 losartan 50 mg tablet 50 mg PO DAILY RF: 0 Referrals: Hector Fung MD [Physician] - Emma Blake PA-C [Primary Care Provider] - Stand Alone Forms: Work Release Note
[2021-01-09] MEDS: OXYMETAZOLINE NASAL SPRAY 15 ML 2 SPRAYS NASAL (03:36)
[2021-01-09 03:43] VITALS: BP 184/76; PULSE 73; RESP 18; O2SAT 97
== END 2021-01-09 03:44 | disposition home or self-care (01) ==
PROVIDERS: Emergency Provider Emergency Medicine; PCP Physician Assistant Medical
DX: R04.0 Epistaxis (principal); Z79.01 Long term (current) use of anticoagulants
CPT/HCPCS: 99282; A9270

== ENCOUNTER 2021-06-16 07:14 | Emergency (ER) | payer MEDICARE, SELFPAY ==
[2021-06-16 07:29] VITALS: BP 161/75; PULSE 64; RESP 18; TEMP 36.6; O2SAT 97; BMI 33.1
--- NOTE | 2021-06-16 07:45 | ED.EXTPRO ---
HPI - Extremity Problem General Chief complaint: Extremity Problem,Nontraumatic Stated complaint: Left arm swollen, joint pain Time Seen by Provider: 06/16/21 07:44 Source: patient Mode of arrival: Ambulatory History of Present Illness HPI Narrative: Patient is a 70-year-old female with history of gout, atrial fibrillation on anticoagulation, diabetes, hypertension, hyperlipidemia presenting today with joint pain all over ongoing for last 2 weeks. 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 1 night she moved over 40 boxes with her arms and shoulders. Her wrists seem to be her biggest complaint today. She was taking her gout medicine thinking it was her gout. However it was not helping. She previously was taking Tylenol it also was. She has pain in all of her joints shoulders wrists knees. No fever and no erythema. Related Data Home Medications Medication Instructions Recorded Confirmed simvastatin 20 mg tablet 20 mg PO QPM 08/08/17 11/11/20 allopurinol 300 mg tablet 300 mg PO DAILY 09/01/18 11/11/20 metoprolol tartrate 100 mg tablet 150 mg PO DAILY 09/01/18 11/11/20 amlodipine 5 mg tablet 10 mg PO DAILY 11/11/20 11/11/20 cetirizine 10 mg tablet 10 mg PO DAILY 11/11/20 11/11/20 glimepiride 2 mg tablet 2 mg PO DAILY 11/11/20 11/11/20 losartan 50 mg tablet 50 mg PO DAILY 11/11/20 11/11/20 rivaroxaban 20 mg tablet (Xarelto) 20 mg PO DAILY 11/11/20 11/11/20 Previous Rx's Medication Instructions Recorded azelastine 137 mcg (0.1 %) nasal 1 spray INTRANASAL BID #30 ml 09/30/20 spray aerosol tramadol 50 mg tablet 50 mg PO Q6H PRN #14 tab 06/16/21 Allergies Allergy/AdvReac Type Severity Reaction Status Date / Time No Known Drug Allergies Allergy Verified 11/11/20 10:00 Review of Systems Review of Systems Narrative: GENERAL: Denies chills, fatigue, malaise, fever, sweats, travel HEENT: Denies sinus pain, ear pain, sore throat, difficulty swallowing, neck pain RESPIRATORY: Denies dyspnea, cough, wheezing, hemoptysis, sputum. CARDIOVASCULAR: Denies chest pain, palpitations, orthopnea, edema GASTROINTESTINAL: Denies nausea, vomiting, abdominal pain, diarrhea, constipation, melena. : Denies dysuria, frequency, incontinence, hematuria, urinary retention, flank pain. MUSCULOSKELETAL: See HPI SKIN: No rash, no erythema, no pruritus NEUROLOGIC: Denies weakness, dizziness, headache, numbness, change in speech, confusion PSYCHIATRIC: No concerning psychosocial issues. 12 point review of systems is negative except for those stated above and HPI Patient History Medical History (Updated 06/16/21 @ 08:01 by Kiya Barboza DO) Atrial fibrillation Diabetes Hyperlipidemia Hypertension Social History Smoking Status: Former smoker Smoking Status: Former smoker alcohol intake frequency: holidays/special occasions only Substance Use Type: does not use Exam Initial Vital Signs Initial Vital Signs: Vital Signs Temperature 97.9 F 06/16/21 07:29 Pulse Rate 64 06/16/21 07:29 Respiratory Rate 18 06/16/21 07:29 Blood Pressure 161/75 H 06/16/21 07:29 Pulse Oximetry 97 06/16/21 07:29 GENERAL: Alert pleasant 70-year-old female in [no acute] distress. HEENT: Head atraumatic,EOMI, pupils reactive, face symmetric, [moist] mucous membranes CARDIOVASCULAR: Regular rate and rhythm without murmurs, rubs or gallops. RESPIRATORY: Breath sounds equal bilaterally, no wheezes rales or rhonchi. ABDOMEN: Soft, nontender. Normoactive bowel sounds all 4 quadrants. No guarding or rebound. EXTREMITIES: Normal range of motion, no clubbing or edema. Neurovascularly intact Mild bilateral wrist swelling no erythema, other mild joint swelling NEUROLOGICAL: Alert and oriented x4.Normal gait and speech. SKIN: Warm, dry, no laceration, no petechiae, no rashes or lesions. Course Orders Ordered: Discontinued Medications Hydrocodone Bitart/Acetaminophen (Hydrocodone/Acet 5/325 Tablet) 1 tab PO NOW ONE Stop: 06/16/21 07:55 Last Admin: 06/16/21 08:05 Dose: 1 tab Documented by: ASHA Vital Signs Vital signs: Vital Signs - 8 hr 06/16/21 07:29 06/16/21 09:10 Temperature 97.9 F Pulse Rate 64 54 L Respiratory Rate 18 16 Blood Pressure 161/75 H 133/69 Pulse Oximetry 97 958 H MDM - Extremity (Nontraumatic) MDM Narrative Medical decision making narrative: Patient has pain and swelling in all extremities. Her left wrist seems to be hurting the most. She does extensive manual labor. Symptoms are most consistent with arthritis rather than a gout attack. Due to patient's anticoagulation NSAIDs are not a viable option. She has been taking Tylenol without much relief. Will give her tramadol in addition to her Tylenol. Also recommend limiting manual labor. At this time no imaging needed or any further workup. Discharge Plan Departure Patient Disposition: Home Clinical Impression: Arthritis Instructions: DI for Osteoarthritis Activity Restrictions/Additional Instructions: *You have been diagnosed with arthritis *What to do: At this time please discuss with your primary care provider limitations at work. You do have arthritis You may also try wrist splints they may help you while at work. *Continue to take medications as directed--SENT TO [facility] [place] Tylenol 1000 mg every 6 hours Tramadol 50 mg every 6 hours or before bed to help with sleep--this causes drowsiness *Follow up with your primary care provider in 2-3 days or call [phone] *Return to ER if you should have swelling redness pain feveror any new, worsening or concerning symptoms CONTROLLED SUBSTANCE DISCHARGE (Narcotoic/benzodiazepine/Flexeril/Phenergan) 1. You have been prescribed narcotic medications, it does have acetaminophen/Tylenol/paracetamol in it, DO NOT TAKE MORE THAN 4,00mg in 24 hours of Tylenol. TRAMADOL DOES NOT CONTAIN TYLENOL 2. Please understand that we cannot provide further refills of narcotics, benzodiazepines or controlled substances through the ED and her pain management will need to be through your provider. 3. While on these medications you cannot drive or operate heavy machinery. 4. You cannot sign legal documents or perform any duties such as this. 5. As long as you're taking opiate pain medications he should also be taking a stool softener such as Colace, Dulcolax, MiraLAX or prune juice, to help avoid constipation. Prescriptions: New tramadol 50 mg tablet 50 mg PO Q6H PRN (Reason: pain) Qty: 14 0RF No Action azelastine 137 mcg (0.1 %) aerosol,spray 1 spray intranasal BID Qty: 30 0RF Rx Instructions: administer into each nostril simvastatin 20 mg tablet 20 mg PO QPM 0RF allopurinol 300 mg tablet 300 mg PO DAILY 0RF metoprolol tartrate 100 mg tablet 150 mg PO DAILY 0RF Xarelto 20 mg tablet 20 mg PO DAILY 0RF Label Comments: TAKE 1 TABLET BY MOUTH ONCE DAILY WITH FOOD AT LARGEST MEAL FOR ATRIAL FIBRILLATION. amlodipine 5 mg tablet 10 mg PO DAILY 0RF cetirizine 10 mg tablet 10 mg PO DAILY 0RF Label Comments: TAKE 1 TABLET BY MOUTH ONCE DAILY FOR 10 DAYS glimepiride 2 mg tablet 2 mg PO DAILY 0RF Label Comments: TAKE 1 TABLET BY MOUTH ONCE DAILY FOR DIABETES losartan 50 mg tablet 50 mg PO DAILY 0RF Label Comments: TAKE 1 TABLET BY MOUTH ONCE DAILY Referrals: Emma Blake PA-C [Primary Care Provider] - Stand Alone Forms: Work Release Note
[2021-06-16] MEDS: HYDROCODONE/ACET 5/325 TABLET 1 TAB PO (08:05)
[2021-06-16 09:10] VITALS: BP 133/69; PULSE 54; RESP 16; O2SAT 958
== END 2021-06-16 09:02 | disposition home or self-care (01) ==
PROVIDERS: Emergency Provider Emergency Medicine; PCP Physician Assistant Medical
DX: M19.032 Primary osteoarthritis, left wrist (principal)
CPT/HCPCS: 99283

== ENCOUNTER 2021-06-20 20:49 | Emergency (ER) | payer MEDICARE, MEDICAID, SELFPAY ==
[2021-06-20] VITALS (7 sets, daily range): BP systolic 121–131; BP diastolic 58–69; PULSE 74–92; RESP 20; TEMP 36.5; O2SAT 92–96
--- NOTE | 2021-06-20 21:14 | ED.ABDPAIN ---
HPI - Abdominal Pain General Chief Complaint: Abdominal Pain Stated Complaint: ABD pain Time Seen by Provider: 06/20/21 20:54 Source: patient and family Mode of arrival: Ambulatory History of Present Illness HPI narrative: 70-year-old female former smoker with history of hypertension, diabetes, AFib on Xarelto, andgout presents with her son and a chief complaint of severe epigastric pain after eating. She has had nausea but denies any vomiting. She has had no fever or chills. She denies any other obvious episode in the past. She states it is worse when she moves, and improves with rest. She denies any radiation of her pain. She has had no chest pain or shortness of breath. She denies any change in her bowel habits and has no dysuria, frequency or urgency. Related Data Home Medications Medication Instructions Recorded Confirmed simvastatin 20 mg tablet 20 mg PO QPM 08/08/17 11/11/20 allopurinol 300 mg tablet 300 mg PO DAILY 09/01/18 11/11/20 metoprolol tartrate 100 mg tablet 150 mg PO DAILY 09/01/18 11/11/20 amlodipine 5 mg tablet 10 mg PO DAILY 11/11/20 11/11/20 cetirizine 10 mg tablet 10 mg PO DAILY 11/11/20 11/11/20 glimepiride 2 mg tablet 2 mg PO DAILY 11/11/20 11/11/20 losartan 50 mg tablet 50 mg PO DAILY 11/11/20 11/11/20 rivaroxaban 20 mg tablet (Xarelto) 20 mg PO DAILY 11/11/20 11/11/20 Previous Rx's Medication Instructions Recorded azelastine 137 mcg (0.1 %) nasal 1 spray INTRANASAL BID #30 ml 09/30/20 spray aerosol tramadol 50 mg tablet 50 mg PO Q6H PRN #14 tab 06/16/21 ondansetron 4 mg disintegrating 4 mg PO TID-QID PRN #10 tab 06/20/21 tablet pantoprazole 40 mg tablet,delayed 40 mg PO DAILY #30 tab 06/20/21 release (Protonix) Allergies Allergy/AdvReac Type Severity Reaction Status Date / Time No Known Drug Allergies Allergy Verified 11/11/20 10:00 Review of Systems Review of Systems Narrative: GENERAL: Denies chills, fatigue, malaise, fever, sweats. HEENT: Denies sinus pain, ear pain, sore throat, difficulty swallowing, dizziness. RESPIRATORY: Denies dyspnea, cough, wheezing, hemoptysis, sputum. CARDIOVASCULAR: Denies chest pain, palpitations, orthopnea, edema, GASTROINTESTINAL: See HPI : Denies dysuria, frequency, incontinence, hematuria, urinary retention. MUSCULOSKELETAL: denies weakness, joint pain, or bony pain SKIN: Denies rash, skin lesions, or other NEUROLOGIC: Denies weakness, headache, numbness, change in speech, confusion, seizures, incoordination. PSYCHIATRIC: No concerning psychosocial issues. 12 point review of systems is negative except for those stated above Patient History Medical History (Updated 06/20/21 @ 23:28 by Bora Navarro DO) Atrial fibrillation Diabetes Hyperlipidemia Hypertension Social History Smoking Status: Former smoker Smoking Status: Former smoker alcohol intake frequency: holidays/special occasions only Substance Use Type: does not use Exam Narrative Exam Narrative: GENERAL: [70 year old patient appears stated age. Well-developed patient, in mild distress. HEAD: Atraumatic. Normocephalic. EYES: Pupils equal round and reactive. Extraocular motions intact. No scleral icterus. No injection or drainage. ENT: Nose without bleeding, purulent drainage. Throat without erythema, tonsillar hypertrophy or exudate. Airway patent. NECK: Trachea midline. Non tender CARDIOVASCULAR: Regular rate and rhythm without murmurs, gallops, or rubs. RESPIRATORY: Clear to auscultation. Breath sounds equal bilaterally. No wheezes, rales, or rhonchi. GASTROINTESTINAL: Abdomen soft, tender in the epigastric, nondistended. EXTREMITIES: No edema or joint tenderness. BACK: Nontender without deformity or crepitance. No flank tenderness. NEURO: AOx3. SKIN: No rash or erythema of visible areas Initial Vital Signs Initial Vital Signs: Vital Signs Temperature 97.7 F 06/20/21 20:56 Pulse Rate 89 06/20/21 20:56 Respiratory Rate 20 06/20/21 20:56 Blood Pressure 128/69 06/20/21 20:56 Pulse Oximetry 96 06/20/21 20:56 Course Orders Ordered: ED Orders 06/20/21 20:59 EKG-12 Lead Stat 06/20/21 21:18 US abdomen limited Stat 06/20/21 21:20 Complete Blood Count AUTO DIFF Stat Comprehensive Metabolic Panel Stat Lipase Stat 06/20/21 22:09 CT abdomen pelvis w con Stat Discontinued Medications Hydrocodone Bitart/Acetaminophen (Hydrocodone/Acet 5/325 Prepack) 1 bottle MISC SEEINSTR ONE Stop: 06/20/21 23:30 Last Admin: 06/20/21 23:42 Dose: 1 bottle Documented by: MARY JO Sodium Chloride (Normal Saline 0.9%) 1,000 mls @ 1,000 mls/hr IV BOLUS ONE Stop: 06/20/21 22:17 Last Infusion: 06/20/21 23:30 Dose: 0 mls/hr Documented by: Admin: 06/20/21 21:26 Dose: 1,000 mls/hr Documented by: LAZAROTE Morphine Sulfate (Morphine 4 Mg/Ml Inj) 4 mg IV NOW ONE Stop: 06/20/21 21:19 Last Admin: 06/20/21 21:27 Dose: 4 mg Documented by: LAZAROTE Ondansetron HCl (Ondansetron 4 Mg/2 Ml Inj) 4 mg IV NOW ONE Stop: 06/20/21 21:19 Last Admin: 06/20/21 21:27 Dose: 4 mg Documented by: MICHAEL Vital Signs Vital signs: Vital Signs - 8 hr 06/20/21 20:56 06/20/21 21:32 06/20/21 22:00 Temperature 97.7 F Pulse Rate 89 82 87 Respiratory Rate 20 Blood Pressure 128/69 126/61 Pulse Oximetry 96 95 93 06/20/21 22:33 06/20/21 23:00 06/20/21 23:04 Temperature Pulse Rate 88 81 74 Respiratory Rate Blood Pressure 121/58 L Pulse Oximetry 96 93 06/20/21 23:30 Temperature Pulse Rate 92 H Respiratory Rate Blood Pressure 131/63 Pulse Oximetry 92 MDM - Abdominal Pain Lab Data Result diagrams: 06/20/21 21:20 06/20/21 21:20 Labs: Lab Results 06/20/21 06/20/21 Range/Units 21:20 21:20 WBC 10.3 (4.5-11.0) X10^3/uL RBC 4.60 (4.0-5.2) X10^6/uL Hgb 14.7 (12.0-16.0) g/dL Hct 43.0 (36-46) % MCV 93.5 (80-100) fL MCH 32.0 (26-34) PG MCHC 34.3 (30-36) % RDW 12.6 (11.6-14.8) % Plt Count 245 (150-400) X10^3/uL Neut % (Auto) 89.3 H (50-75) % Lymph % (Auto) 6.3 L (25-40) % Valley % (Auto) 3.2 (3-14) % Eos % (Auto) 1.0 L (2-4) % Baso % (Auto) 0.2 (0-2) % Neut # (Auto) 9200 H (7400-8243) /uL Lymph # (Auto) 600 L (9167-8553) /uL Valley # (Auto) 300 (0-900) /uL Eos # (Auto) 100 (0-450) /uL Baso # (Auto) 0 (0-100) /uL Sodium 137 (137-145) mmol/L Potassium 4.3 (3.4-5.1) mmol/L Chloride 103 (98-107) mmol/L Carbon Dioxide 26 (22-32) mmol/L BUN 29 H (7-17) mg/dL Creatinine 1.19 H (0.52-1.04) mg/dL Estimated GFR 49 L (>60) mL/min BUN/Creatinine Ratio 24.4 H (6-22) Glucose 212 H (80-110) mg/dL Calcium 8.9 (8.4-10.2) mg/dL Total Bilirubin 0.7 (0.2-1.3) mg/dL AST 29 (14-36) IU/L ALT 21 (<35) IU/L Alkaline Phosphatase 78 (38-126) U/L Total Protein 8.5 H (6.3-8.2) g/dL Albumin 4.2 (3.5-5.0) g/dL Globulin 4.3 H (1.7-4.1) g/dL Albumin/Globulin Ratio 1.0 (1.0-2.8) Lipase 237 (23-300) U/L Imaging Data CT scan - abdomen/pelvis: Radiologist's Impression: [address] [place] [address] CT Scan Report Signed Patient: Delaney Paredes MR#: [id number] : 1950 Acct:[id number] Age/Sex: 70 / F Date of Service: 06/20/21 Loc: ED Accession Number: [id number] ?? Procedure: CT abdomen pelvis w con Ordering Provider: Bora Navarro D.O. PROCEDURE:? CT ABDOMEN PELVIS W CON ? INDICATIONS:? severe abdominal pain ? TECHNIQUE:? After the administration of IV contrast, axial sections were acquired from the lung bases to the pubic symphysis.? Coronal and sagittal reformats were performed.? For radiation dose reduction, the following was used:? automated exposure control, adjustment of mA and/or kV according to patient size. ? COMPARISON:? [facility], , ABDOMEN LIMITED, 06/20/2021, 21:58. ? FINDINGS:? Image quality:? Excellent.? ? Lung bases:? Basilar atelectasis.? No pleural effusion..? ? Heart:? Mitral annular calcification.? Coronary artery calcifications. ? ? ABDOMEN: Liver:? No focal lesion.? ? Gallbladder:? Prominent size.? No calcified gallstones.? No pericholecystic fluid. Biliary ducts:? Unremarkable.? ? Pancreas:? Enhances uniformly.? No peripancreatic fluid collection. Spleen:? No splenomegaly. Adrenal Glands:? No nodule. Kidneys and Ureters:? Lobulated appearance.? Cortical thinning.? Enhances symmetrically.? No hydronephrosis. ? Stomach and Bowel:? Stomach, small bowel loops, and colon are unremarkable.? Diverticulosis.? Normal appendix. Peritoneum:? No abnormal intraperitoneal fluid.? No free air.? ? Ventral Wall: ? Tiny umbilical hernia. Abdominal Nodes:? No retroperitoneal or mesenteric adenopathy by size criteria.? Vessels:? Aorta and inferior vena cava are normal in size.? Circumferential calcified atherosclerotic plaque.? ? PELVIS: Pelvic Organs:? Uterus is absent.? ? Bladder:? Unremarkable.? ? Pelvic Nodes: No enlarged lymph nodes.? Miscellaneous: No inguinal hernias are seen. ? ? ? Bones:? Minimal anterolisthesis of L5 on S1.? No compression fracture. ? ? IMPRESSION:? 1. No acute inflammatory process is identified.? Normal appendix.? No free fluid. ? 2. Diverticulosis. ? 3. No hydronephrosis.? Renal cortical thinning. ? ? Dictated by: Narciso Archuleta M.D. on 06/20/2021 at 22:41 ? ? Approved by: Narciso Archuleta M.D. on 06/20/2021 at 22:48 ? US - abdomen: Radiologist's Impression: Launch?[place] [address] CT Scan Report Signed Patient: Delaney Paredes MR#: [id number] : 1950 Acct:[id number] Age/Sex: 70 / F Date of Service: 06/20/21 Loc: ED Accession Number: [id number] ?? Procedure: CT abdomen pelvis w con Ordering Provider: Bora Navarro D.O. PROCEDURE:? CT ABDOMEN PELVIS W CON ? INDICATIONS:? severe abdominal pain ? TECHNIQUE:? After the administration of IV contrast, axial sections were acquired from the lung bases to the pubic symphysis.? Coronal and sagittal reformats were performed.? For radiation dose reduction, the following was used:? automated exposure control, adjustment of mA and/or kV according to patient size. ? COMPARISON:? [facility], , ABDOMEN LIMITED, 06/20/2021, 21:58. ? FINDINGS:? Image quality:? Excellent.? ? Lung bases:? Basilar atelectasis.? No pleural effusion..? ? Heart:? Mitral annular calcification.? Coronary artery calcifications. ? ? ABDOMEN: Liver:? No focal lesion.? ? Gallbladder:? Prominent size.? No calcified gallstones.? No pericholecystic fluid. Biliary ducts:? Unremarkable.? ? Pancreas:? Enhances uniformly.? No peripancreatic fluid collection. Spleen:? No splenomegaly. Adrenal Glands:? No nodule. Kidneys and Ureters:? Lobulated appearance.? Cortical thinning.? Enhances symmetrically.? No hydronephrosis. ? Stomach and Bowel:? Stomach, small bowel loops, and colon are unremarkable.? Diverticulosis.? Normal appendix. Peritoneum:? No abnormal intraperitoneal fluid.? No free air.? ? Ventral Wall: ? Tiny umbilical hernia. Abdominal Nodes:? No retroperitoneal or mesenteric adenopathy by size criteria.? Vessels:? Aorta and inferior vena cava are normal in size.? Circumferential calcified atherosclerotic plaque.? ? PELVIS: Pelvic Organs:? Uterus is absent.? ? Bladder:? Unremarkable.? ? Pelvic Nodes: No enlarged lymph nodes.? Miscellaneous: No inguinal hernias are seen. ? ? ? Bones:? Minimal anterolisthesis of L5 on S1.? No compression fracture. ? ? IMPRESSION:? 1. No acute inflammatory process is identified.? Normal appendix.? No free fluid. ? 2. Diverticulosis. ? 3. No hydronephrosis.? Renal cortical thinning. ? ? Dictated by: Narciso Archuleta M.D. on 06/20/2021 at 22:41 ? ? Approved by: Narciso Archuelta M.D. on 06/20/2021 at 22:48 ? MDM Narrative Medical decision making narrative: Multiple etiologies for patient's symptoms considered including: [Gallbladder disease versus pancreatitis versus bowel obstruction versus esophageal spasm versus GERD versus other History, physical exam, labs and imaging are very reassuring. Pain well controlled, patient tolerating orals Patient's symptoms improved over duration of stay with above-stated therapies. Findings and discharge diagnosis discussed with patient/family followed by verbalization of understanding Return precautions discussed with patient/family whom verbalize understanding. Discharge Plan Departure Patient Disposition: Home Clinical Impression: Abdominal pain, epigastric Instructions: DI for Epigastric Pain Activity Restrictions/Additional Instructions: *You have been diagnosed with [epigastric pain. Thankfully, your history and physical exam as well as labs, ultrasound and CT scan are reassuring. There is no evidence of bowel obstruction, gallbladder problem, pancreatitis or other diagnosis that requires surgery, admission or other specific intervention. *What to do: *Please continue to take your regular medications as directed. [x ] New medication prescriptions sent to your pharmacy: [ [facility]] [ ] New medication written as a paper prescription [ ] No new medications given *Please follow up with your primary care provider in 2-3 days, call for an appointment. Let them know you were seen in the Emergency Department and that we ask that you be seen in follow up. We will electronically transmit a record of today's note if your PCP is in our system *If you do not have a primary care provider please contact the [facility] Resource line at [phone]. They will ask some questions about your medical history and help get you set up with a doctor in the community. *Return to Emergency Department if you should have any new, worsening or concerning symptoms, such as [fever greater than 101 F, shaking chills, worsening pain, persistent vomiting or other bothersome symptoms] You have been prescribed a short course of narcotic medications. These are potentially dangerous and addictive medications that should be used carefully. While on these medications you cannot drive or operate heavy machinery. Additionally, you cannot sign legal documents or perform any duties such as this. 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 Please understand that we cannot provide further refills of narcotics or controlled substances through the ED and your pain management will need to be through your Primary Care Provider Prescriptions: New pantoprazole [Protonix] 40 mg tablet,delayed release (DR/EC) 40 mg PO DAILY Qty: 30 0RF ondansetron 4 mg tablet,disintegrating 4 mg PO TID-QID PRN (Reason: nausea and vomiting) Qty: 10 0RF No Action azelastine 137 mcg (0.1 %) aerosol,spray 1 spray intranasal BID Qty: 30 0RF Rx Instructions: administer into each nostril simvastatin 20 mg tablet 20 mg PO QPM 0RF allopurinol 300 mg tablet 300 mg PO DAILY 0RF metoprolol tartrate 100 mg tablet 150 mg PO DAILY 0RF Xarelto 20 mg tablet 20 mg PO DAILY 0RF Label Comments: TAKE 1 TABLET BY MOUTH ONCE DAILY WITH FOOD AT LARGEST MEAL FOR ATRIAL FIBRILLATION. amlodipine 5 mg tablet 10 mg PO DAILY 0RF cetirizine 10 mg tablet 10 mg PO DAILY 0RF Label Comments: TAKE 1 TABLET BY MOUTH ONCE DAILY FOR 10 DAYS glimepiride 2 mg tablet 2 mg PO DAILY 0RF Label Comments: TAKE 1 TABLET BY MOUTH ONCE DAILY FOR DIABETES losartan 50 mg tablet 50 mg PO DAILY 0RF Label Comments: TAKE 1 TABLET BY MOUTH ONCE DAILY tramadol 50 mg tablet 50 mg PO Q6H PRN (Reason: pain) Qty: 14 0RF Referrals: Emma Blake PA-C [Primary Care Provider] -
--- NOTE | 2021-06-20 21:18 | DI.US.S_ITS ---
PROCEDURE: US ABDOMEN LIMITED INDICATIONS: SEVERE EPIGASTRIC PAIN TECHNIQUE: Real-time scanning was performed of the abdominal, with image documentation. COMPARISON: None. FINDINGS: Liver: Normal size. Increased in echogenicity. Gallbladder: Nondilated. No stones or sludge. Normal gallbladder wall thickness. No pericholecystic fluid. Negative sonographic Garcia's sign. Biliary ducts: Intrahepatic bile ducts are non-dilated. Extrahepatic bile duct caliber measures 7 mm. Normal is 6-7 mm or less in diameter, or 10 mm or less post-cholecystectomy. Pancreas: Not well seen. IMPRESSION: 1. No acute cholecystitis. No gallstones. 2. Increased hepatic echogenicity most consistent with hepatic steatosis. Other forms of hepatocellular disease could have similar appearance. Dictated by: Narciso Archuleta M.D. on 06/20/2021 at 22:28 Approved by: Narciso Archuleta M.D. on 06/20/2021 at 22:29
[2021-06-20] MEDS: SODIUM CHLORIDE 0.9% 1,000 ML 1000 ML IV (21:26)
[2021-06-20] MEDS: ONDANSETRON 4 MG/2 ML INJ IV (21:27)
[2021-06-20] MEDS: MORPHINE 4 MG/ML INJ IV (21:27)
[2021-06-20 21:33] LABS: Add Manual Diff / Slide Review NO; Basophils Absolute Auto 0 /uL (0-100); Basophils Percent Auto 0.2 % (0-2); Eosinophils Absolute Auto 100 /uL (0-450); Hemoglobin 14.7 g/dL (12.0-16.0); Lymphocytes Absolute Auto 600 /uL (1100-4500); Lymphocytes Percent Auto 6.3 % (25-40); Mean Corpuscular HGB Conc 34.3 % (30-36); Mean Corpuscular Volume 93.5 fL (80-100); Monocytes Absolute Auto 300 /uL (0-900); Monocytes Percent Auto 3.2 % (3-14); Neutrophils Absolute Auto 9200 /uL (1500-7000); Neutrophils Percent Auto 89.3 % (50-75); Platelet Count 245 X10^3/uL (150-400); Red Cell Distribution Width 12.6 % (11.6-14.8); White Blood Cell Count 10.3 X10^3/uL (4.5-11.0)
[2021-06-20 21:40] LABS: Alanine Aminotransferase 21 IU/L (<35); Albumin 4.2 g/dL (3.5-5.0); Alkaline Phosphatase 78 U/L (38-126); Aspartate Aminotransferase 29 IU/L (14-36); BUN Creatinine Ratio 24.4 (6-22); Bilirubin Total 0.7 mg/dL (0.2-1.3); Blood Urea Nitrogen 29 mg/dL (7-17); Calcium 8.9 mg/dL (8.4-10.2); Carbon Dioxide 26 mmol/L (22-32); Chloride 103 mmol/L (98-107); Estimated Glomerular Filt Rate 49 mL/min (>60); Globulin 4.3 g/dL (1.7-4.1); Glucose 212 mg/dL (80-110); HEMOLYSIS < 15 (0-50); Lipase 237 U/L (23-300); Potassium 4.3 mmol/L (3.4-5.1); Sodium 137 mmol/L (137-145); Total Protein 8.5 g/dL (6.3-8.2)
--- NOTE | 2021-06-20 22:09 | DI.CT.S_ITS ---
PROCEDURE: CT ABDOMEN PELVIS W CON INDICATIONS: severe abdominal pain TECHNIQUE: After the administration of IV contrast, axial sections were acquired from the lung bases to the pubic symphysis. Coronal and sagittal reformats were performed. For radiation dose reduction, the following was used: automated exposure control, adjustment of mA and/or kV according to patient size. COMPARISON: [facility], , US ABDOMEN LIMITED, 06/20/2021, 21:58. FINDINGS: Image quality: Excellent. Lung bases: Basilar atelectasis. No pleural effusion.. Heart: Mitral annular calcification. Coronary artery calcifications. ABDOMEN: Liver: No focal lesion. Gallbladder: Prominent size. No calcified gallstones. No pericholecystic fluid. Biliary ducts: Unremarkable. Pancreas: Enhances uniformly. No peripancreatic fluid collection. Spleen: No splenomegaly. Adrenal Glands: No nodule. Kidneys and Ureters: Lobulated appearance. Cortical thinning. Enhances symmetrically. No hydronephrosis. Stomach and Bowel: Stomach, small bowel loops, and colon are unremarkable. Diverticulosis. Normal appendix. Peritoneum: No abnormal intraperitoneal fluid. No free air. Ventral Wall: Tiny umbilical hernia. Abdominal Nodes: No retroperitoneal or mesenteric adenopathy by size criteria. Vessels: Aorta and inferior vena cava are normal in size. Circumferential calcified atherosclerotic plaque. PELVIS: Pelvic Organs: Uterus is absent. Bladder: Unremarkable. Pelvic Nodes: No enlarged lymph nodes. Miscellaneous: No inguinal hernias are seen. Bones: Minimal anterolisthesis of L5 on S1. No compression fracture. IMPRESSION: 1. No acute inflammatory process is identified. Normal appendix. No free fluid. 2. Diverticulosis. 3. No hydronephrosis. Renal cortical thinning. Dictated by: Narciso Archuleta M.D. on 06/20/2021 at 22:41 Approved by: Narciso Archuleta M.D. on 06/20/2021 at 22:48
[2021-06-20] MEDS: HYDROCODONE/ACET 5/325 PREPACK 1 BOTTLE MISC (23:42)
--- NOTE | 2021-06-21 18:48 | PC.NURSE ---
Boyfriend called and states that pt has had diarrhea 'all day'. Asked if he should bring her back. I informed him I was not able to give any medical advice over the phone and she was welcome to return at any time for an evaluation.
== END 2021-06-20 23:51 | disposition home or self-care (01) ==
PROVIDERS: Emergency Provider Emergency Medicine; PCP Physician Assistant Medical
DX: R10.13 Epigastric pain (principal); Z79.01 Long term (current) use of anticoagulants; Z87.891 Personal history of nicotine dependence
CPT/HCPCS: 36415; 74177; 76705; 80053; 83690; 85025; 93005; 96361; 96374; 96375; 99284; J2270; J2405

== ENCOUNTER 2022-01-10 20:15 | Emergency (ER) | payer MEDICARE, MEDICAID, SELFPAY ==
[2022-01-10] VITALS (16 sets, daily range): BP systolic 91–140; BP diastolic 55–81; PULSE 87–114; RESP 13–25; TEMP 36.6; O2SAT 94–98; BMI 32.2
--- NOTE | 2022-01-10 20:30 | DI.RAD.S_ITS ---
PROCEDURE: XR CHEST 1V INDICATIONS: chest pain TECHNIQUE: One view of the chest was acquired. COMPARISON: [facility], , XR CHEST 1V, 11/11/2020, 10:21. FINDINGS: Surgical changes and devices: Prior chest x-ray from 01/10/2022 3:39 p.m. Lungs and pleura: Lungs are clear. No pleural effusions or pneumothorax. Mediastinum: Mediastinal contours are unchanged. Heart size is enlarged. Bones and chest wall: No suspicious bony lesions. Overlying soft tissues appear unremarkable. IMPRESSION: 1. No acute cardiopulmonary disease. Dictated by: Jani Lyons M.D. on 01/10/2022 at 22:33 Approved by: Jani Lyons M.D. on 01/10/2022 at 22:37
--- NOTE | 2022-01-10 20:52 | ED.CHESTPAIN ---
HPI - Chest Pain General Chief Complaint: Chest Pain Stated Complaint: Chest pain, Left arm tingling Time Seen by Provider: 01/10/22 20:41 Source: patient Mode of arrival: Ambulatory Limitations: no limitations History of Present Illness HPI narrative: Patient is a 71-year-old female history of atrial fibrillation on Xarelto, diabetes hypertension hyper lipidemia presenting today with chest discomfort and left arm numbness. She said she woke up and felt her chest was uncomfortable. He felt her left arm was a little bit numb but she has no weakness. She no says it feels the same he does not want anything for the chest pain. She has previously gone up to [place], she says she is instructed to take Tums. She does not have history of coronary artery disease. She has no shortness of breath. She denies headache. Says she describes chest pain as squeezing it lasted for about 30 minutes she took Tums as she was told to do and it completely resolved. Related Data Home Medications Medication Instructions Recorded Confirmed simvastatin 20 mg tablet 20 mg PO QPM 08/08/17 11/11/20 allopurinol 300 mg tablet 300 mg PO DAILY 09/01/18 11/11/20 metoprolol tartrate 100 mg tablet 150 mg PO DAILY 09/01/18 11/11/20 amlodipine 5 mg tablet 10 mg PO DAILY 11/11/20 11/11/20 cetirizine 10 mg tablet 10 mg PO DAILY 11/11/20 11/11/20 glimepiride 2 mg tablet 2 mg PO DAILY 11/11/20 11/11/20 losartan 50 mg tablet 50 mg PO DAILY 11/11/20 11/11/20 rivaroxaban 20 mg tablet (Xarelto) 20 mg PO DAILY 11/11/20 11/11/20 Previous Rx's Medication Instructions Recorded azelastine 137 mcg (0.1 %) nasal 1 spray intranasal BID runny 09/30/20 spray aerosol nose/sneezing #30 mL tramadol 50 mg tablet 50 mg PO Q6H PRN pain #14 tabs 06/16/21 ondansetron 4 mg disintegrating 4 mg PO TID-QID PRN nausea and 06/20/21 tablet vomiting #10 tabs pantoprazole 40 mg tablet,delayed 40 mg PO DAILY #30 tabs 06/20/21 release (Protonix) Allergies Allergy/AdvReac Type Severity Reaction Status Date / Time No Known Drug Allergies Allergy Verified 01/10/22 20:22 Review of Systems Review of Systems Narrative: GENERAL: Denies chills, fatigue, malaise, fever, sweats, travel HEENT: Denies sinus pain, ear pain, sore throat, difficulty swallowing, neck pain RESPIRATORY: Denies dyspnea, cough, wheezing, hemoptysis, sputum. CARDIOVASCULAR: See HPI GASTROINTESTINAL: Denies nausea, vomiting, abdominal pain, diarrhea, constipation, melena. : Denies dysuria, frequency, incontinence, hematuria, urinary retention, flank pain. MUSCULOSKELETAL: Denies weakness, joint pain, or bony pain SKIN: No rash, no erythema, no pruritus NEUROLOGIC: Denies weakness, dizziness, headache, numbness, change in speech, confusion PSYCHIATRIC: No concerning psychosocial issues. 12 point review of systems is negative except for those stated above and HPI Patient History Medical History (Updated 01/11/22 @ 01:01 by Kiya Barboza DO) Atrial fibrillation Diabetes Hyperlipidemia Hypertension Social History Smoking Status: Former smoker Smoking Status: Former smoker alcohol intake frequency: holidays/special occasions only Substance Use Type: does not use Exam Initial Vital Signs Initial Vital Signs: Vital Signs Temperature 97.8 F 01/10/22 20:22 Pulse Rate 87 01/10/22 20:22 Respiratory Rate 20 01/10/22 20:22 Blood Pressure 134/81 01/10/22 20:22 Pulse Oximetry 98 01/10/22 20:22 Oxygen Delivery Method 01/10/22 20:22 GENERAL: Alert pleasant 71-year-old female no acute distress and in no acute distress. HEENT: Head atraumatic,EOMI, pupils reactive, face symmetric, moist mucous membranes CARDIOVASCULAR: Irregularly irregular not tachycardic RESPIRATORY: Breath sounds equal bilaterally, no wheezes rales or rhonchi. ABDOMEN: Soft, nontender. Normoactive bowel sounds all 4 quadrants. No guarding or rebound. EXTREMITIES: Normal range of motion, no clubbing or edema. Neurovascularly intact NEUROLOGICAL: Alert and oriented x4.Normal gait and speech. Cranial nerves II through XII grossly intact. Good [id number], good [id number], strength equal bilaterally, no dysarthria or aphasia, sensation in tact to soft touch bilaterally, no visual changes, no facial droop SKIN: Warm, dry, no laceration, no petechiae, no rashes or lesions. Scores NIH Stroke Scale Level of Conciousness: Alert, keenly responsive Ask month/age: Answers both questions correctly. Open/close eyes, close hand: Performs both tasks correctly Best gaze horizontal: Normal Visual javier: No visual loss Facial palsy: Normal symetrical movement Left arm drift: No drift for full 10 sec Right arm drift: No drift for full 10 sec Left leg drift: No drift for full 5 sec Right leg drift: No drift for full 5 sec Limb ataxia: Absent Sensory on face/arms/legs: Normal, no sensory loss Best language: No aphasia, normal Dysarthria: Normal Extinction or inattention: No abnormality Total NIH Stroke scale score: 0 Course Orders Ordered: ED Orders 01/10/22 20:30 XR chest 1V Stat 01/10/22 20:56 Complete Blood Count AUTO DIFF Stat Comprehensive Metabolic Panel Stat Lipase Stat Magnesium Stat Troponin & CK Cardiac Panel Stat 01/10/22 23:02 Trop I [Troponin I] Stat Vital Signs Vital signs: Vital Signs - 8 hr 01/10/22 20:22 01/10/22 20:27 01/10/22 20:30 Temperature 97.8 F Pulse Rate 87 102 H Respiratory Rate 20 25 H 13 Blood Pressure 134/81 Pulse Oximetry 98 95 Oxygen Delivery Method Room Air Room Air 01/10/22 20:56 01/10/22 20:56 01/10/22 21:00 Temperature Pulse Rate 104 H 107 H Respiratory Rate 22 18 Blood Pressure 91/70 Pulse Oximetry 96 97 Oxygen Delivery Method Room Air 01/10/22 21:01 01/10/22 21:01 01/10/22 21:30 Temperature Pulse Rate 106 H Respiratory Rate 19 Blood Pressure 120/71 117/61 Pulse Oximetry 96 Oxygen Delivery Method 01/10/22 21:30 01/10/22 22:00 01/10/22 22:01 Temperature Pulse Rate 93 H 99 H Respiratory Rate 16 15 Blood Pressure 115/55 L Pulse Oximetry 94 94 Oxygen Delivery Method 01/10/22 22:01 01/10/22 22:30 01/10/22 22:31 Temperature Pulse Rate 106 H 96 H 90 Respiratory Rate 16 18 22 Blood Pressure Pulse Oximetry 94 95 96 Oxygen Delivery Method 01/10/22 22:31 01/10/22 22:39 01/10/22 22:39 Temperature Pulse Rate 114 H Respiratory Rate 15 Blood Pressure 140/69 116/60 Pulse Oximetry 97 Oxygen Delivery Method 01/10/22 23:00 01/10/22 23:01 01/10/22 23:01 Temperature Pulse Rate 97 H 95 H Respiratory Rate 13 13 Blood Pressure 139/71 Pulse Oximetry 95 95 Oxygen Delivery Method 01/10/22 23:30 01/10/22 23:31 01/10/22 23:31 Temperature Pulse Rate 93 H 97 H Respiratory Rate 15 14 Blood Pressure 131/60 Pulse Oximetry 95 94 Oxygen Delivery Method 01/11/22 00:00 01/11/22 00:00 01/11/22 00:30 Temperature Pulse Rate 90 Respiratory Rate 16 Blood Pressure 131/71 121/80 Pulse Oximetry 95 Oxygen Delivery Method 01/11/22 00:30 01/11/22 01:00 01/11/22 01:00 Temperature Pulse Rate 86 96 H Respiratory Rate 17 16 Blood Pressure 123/68 Pulse Oximetry 96 97 Oxygen Delivery Method 01/11/22 01:30 01/11/22 01:30 Temperature Pulse Rate 84 Respiratory Rate 22 Blood Pressure 133/72 Pulse Oximetry 96 Oxygen Delivery Method MDM - Chest Pain Lab Data Result diagrams: 01/10/22 20:56 01/10/22 20:56 Labs: Lab Results 01/10/22 01/10/22 01/10/22 Range/Units 20:56 20:56 23:02 WBC 8.3 (4.5-11.0) X10^3/uL RBC 4.15 (4.0-5.2) X10^6/uL Hgb 13.2 (12.0-16.0) g/dL Hct 39.7 (36-46) % MCV 95.7 (80-100) fL MCH 31.8 (26-34) PG MCHC 33.2 (30-36) % RDW 12.6 (11.6-14.8) % Plt Count 198 (150-400) X10^3/uL Neut % (Auto) 59.0 (50-75) % Lymph % (Auto) 27.1 (25-40) % Charles % (Auto) 10.5 (3-14) % Eos % (Auto) 2.8 (2-4) % Baso % (Auto) 0.6 (0-2) % Neut # (Auto) 4900 (1951-9060) /uL Lymph # (Auto) 2200 (5395-9487) /uL Charles # (Auto) 900 (0-900) /uL Eos # (Auto) 200 (0-450) /uL Baso # (Auto) 0 (0-100) /uL Sodium 136 L (137-145) mmol/L Potassium 3.8 (3.4-5.1) mmol/L Chloride 105 (98-107) mmol/L Carbon Dioxide 24 (22-32) mmol/L BUN 30 H (7-17) mg/dL Creatinine 1.30 H (0.52-1.04) mg/dL Estimated GFR 44 L (>60) mL/min BUN/Creatinine Ratio 23.1 H (6-22) Glucose 253 H (80-110) mg/dL Calcium 9.1 (8.4-10.2) mg/dL Magnesium 1.9 (1.6-2.3) mg/dL Total Bilirubin 0.3 (0.2-1.3) mg/dL AST 28 (14-36) IU/L ALT 37 H (<35) IU/L Alkaline Phosphatase 103 (38-126) U/L Total Creatine Kinase 64 (30-135) U/L CK-MB (CK-2) TNP CK-MB (CK-2) Rel Index TNP Troponin I < 0.012 < 0.012 (0.01-0.034) ng/mL Total Protein 7.8 (6.3-8.2) g/dL Albumin 4.1 (3.5-5.0) g/dL Globulin 3.7 (1.7-4.1) g/dL Albumin/Globulin Ratio 1.1 (1.0-2.8) Lipase 502 H (23-300) U/L Urine Dip Bedside Urine Glucose Negative Bedside Urine Bilirubin - Negative Bedside Urine Ketone - Negative Urine Specific [place] 1.015 Bedside Urine Occult Blood - Negative Bedside Urine pH 5.5 Bedside Urine Protein - Negative Bedside Urine Urobilinogen - Negative Bedside Urine Nitrite - Negative Bedside Urine Leukocytes - Negative Esterase Imaging Data Chest x-ray: Radiologist's Impression: Delaney Ma MR#: [id number] : 1950 Acct:[id number] Age/Sex: 71 / F Date of Service: 01/10/22 Loc: ED Accession Number: [id number] ?? Procedure: XR chest 1V Ordering Provider: Kiya Barboza D.O. PROCEDURE:? XR CHEST 1V ? INDICATIONS:? chest pain ? TECHNIQUE:? One view of the chest was acquired.? ? COMPARISON:? [facility], , XR CHEST 1V, 11/11/2020, 10:21. ? FINDINGS:? ? Surgical changes and devices:? Prior chest x-ray from 01/10/2022 3:39 p.m. ? Lungs and pleura:? Lungs are clear.? No pleural effusions or pneumothorax.? ? Mediastinum:? Mediastinal contours are unchanged.? Heart size is enlarged. ? Bones and chest wall:? No suspicious bony lesions.? Overlying soft tissues appear unremarkable.? ? IMPRESSION:? ? 1.? No acute cardiopulmonary disease. ? ? ? Dictated by: Jani Lyons M.D. on 01/10/2022 at 22:33 ? ? Approved by: Jani Lyons M.D. on 01/10/2022 at 22:37 ? ECG Data Interpretation: Atrial fibrillation rate 96 QRS [address] changes similar to previous EKG MDM Narrative Medical decision making narrative: Patient presenting today with chest discomfort she has known atrial fibrillation on Xarelto heart rate is controlled. At this time unlikely to be pulmonary embolism no evidence of NSTEMI or coronary artery disease. Attempted to get records from [facility] unable to do so. She has 2- troponins she had squeezing chest pain which resolved with Tums. She has no known coronary artery disease she has room cleaner Dr. Edward I do not see any testing here on our system. Chest pain resolved with Tums is very atypical. Her AFib is rate controlled it is unlikely to be that she is chronically in AFib. I discussed with son and patient if she should have any new or worsening symptoms even if it is later tonight that she needs to return has a ED. she revealed head so numbness in the left arm but really no focal deficits no weakness symptoms completely resolved. Patient has been seen sleeping here in the ED and easily arousable overall appears comfortable. I discussed all findings with the patient and son, Education has been performed regarding treatment plan, diagnosis, warning signs and symptoms and all concerns have been addressed. Verbally agree with and understood all of the above. Discharge Plan Departure Patient Disposition: Home Clinical Impression: Atypical chest pain, Atrial fibrillation Instructions: Atrial Fibrillation, DI for Atypical Chest Pain Activity Restrictions/Additional Instructions: *You have been diagnosed with atrial fibrillation, atypical chest pain *What to do: At this time please follow-up with your room cleaner. He may need a stress test and echocardiogram if those have not yet been done. Please return to the emergency department if you should have any of the symptoms at any point in time even by ambulance. We were not able to do these tests in the emergency department today. However your testing in the ED including blood work and x-ray are reassuring. *Continue to take medications as directed *Follow up with your primary care provider in 2-3 days or call [phone] *Return to ER if you should have chest discomfort, palpitations, shortness of breath, weakness numbness or any new, worsening or concerning symptoms Prescriptions: No Action azelastine 137 mcg (0.1 %) aerosol,spray 1 spray intranasal BID Qty: 30 0RF Rx Instructions: administer into each nostril simvastatin 20 mg tablet 20 mg PO QPM allopurinol 300 mg tablet 300 mg PO DAILY metoprolol tartrate 100 mg tablet 150 mg PO DAILY pantoprazole [Protonix] 40 mg tablet,delayed release (DR/EC) 40 mg PO DAILY Qty: 30 0RF ondansetron 4 mg tablet,disintegrating 4 mg PO TID-QID PRN (Reason: nausea and vomiting) Qty: 10 0RF Xarelto 20 mg tablet 20 mg PO DAILY Label Comments: TAKE 1 TABLET BY MOUTH ONCE DAILY WITH FOOD AT LARGEST MEAL FOR ATRIAL FIBRILLATION. amlodipine 5 mg tablet 10 mg PO DAILY cetirizine 10 mg tablet 10 mg PO DAILY Label Comments: TAKE 1 TABLET BY MOUTH ONCE DAILY FOR 10 DAYS glimepiride 2 mg tablet 2 mg PO DAILY Label Comments: TAKE 1 TABLET BY MOUTH ONCE DAILY FOR DIABETES losartan 50 mg tablet 50 mg PO DAILY Label Comments: TAKE 1 TABLET BY MOUTH ONCE DAILY tramadol 50 mg tablet 50 mg PO Q6H PRN (Reason: pain) Qty: 14 0RF Referrals: Emma Blake PA-C [Primary Care Provider] - Visit Report Forms: Patient Portal/API
[2022-01-10 21:16] LABS: Alanine Aminotransferase 37 IU/L (<35); Albumin 4.1 g/dL (3.5-5.0); Albumin Globulin Ratio 1.1 (1.0-2.8); Alkaline Phosphatase 103 U/L (38-126); Aspartate Aminotransferase 28 IU/L (14-36); BUN Creatinine Ratio 23.1 (6-22); Bilirubin Total 0.3 mg/dL (0.2-1.3); Blood Urea Nitrogen 30 mg/dL (7-17); Calcium 9.1 mg/dL (8.4-10.2); Carbon Dioxide 24 mmol/L (22-32); Chloride 105 mmol/L (98-107); Creatine Kinase 64 U/L (30-135); Estimated Glomerular Filt Rate 44 mL/min (>60); Globulin 3.7 g/dL (1.7-4.1); Glucose 253 mg/dL (80-110); HEMOLYSIS 23 (0-50); Lipase 502 U/L (23-300); Magnesium 1.9 mg/dL (1.6-2.3); Potassium 3.8 mmol/L (3.4-5.1); Sodium 136 mmol/L (137-145); Total Protein 7.8 g/dL (6.3-8.2)
[2022-01-10 21:26] LABS: Add Manual Diff / Slide Review NO; Basophils Absolute Auto 0 /uL (0-100); Basophils Percent Auto 0.6 % (0-2); Eosinophils Absolute Auto 200 /uL (0-450); Eosinophils Percent Auto 2.8 % (2-4); Hematocrit 39.7 % (36-46); Hemoglobin 13.2 g/dL (12.0-16.0); Lymphocytes Absolute Auto 2200 /uL (1100-4500); Lymphocytes Percent Auto 27.1 % (25-40); Mean Corpuscular HGB Conc 33.2 % (30-36); Mean Corpuscular Hemoglobin 31.8 PG (26-34); Mean Corpuscular Volume 95.7 fL (80-100); Monocytes Absolute Auto 900 /uL (0-900); Monocytes Percent Auto 10.5 % (3-14); Neutrophils Absolute Auto 4900 /uL (1500-7000); Platelet Count 198 X10^3/uL (150-400); Red Blood Cell Count 4.15 X10^6/uL (4.0-5.2); Red Cell Distribution Width 12.6 % (11.6-14.8); White Blood Cell Count 8.3 X10^3/uL (4.5-11.0)
[2022-01-10 21:27] LABS: Troponin I < 0.012 ng/mL (0.01-0.034)
[2022-01-10 23:49] LABS: Troponin I < 0.012 ng/mL (0.01-0.034)
[2022-01-11] VITALS: BP 131/71; PULSE 90; RESP 16; O2SAT 95
[2022-01-11 00:30] VITALS: BP 121/80; PULSE 86; RESP 17; O2SAT 96
[2022-01-11 01:00] VITALS: BP 123/68; PULSE 96; RESP 16; O2SAT 97
[2022-01-11 01:30] VITALS: BP 133/72; PULSE 84; RESP 22; O2SAT 96
== END 2022-01-11 01:48 | disposition home or self-care (01) ==
PROVIDERS: Emergency Provider Emergency Medicine; PCP Physician Assistant Medical
DX: R07.89 Other chest pain (principal); I48.91 Unspecified atrial fibrillation; Z79.899 Other long term (current) drug therapy
CPT/HCPCS: 36415; 71045; 80053; 81003; 82550; 83690; 83735; 84484; 85025; 93005; 93010; 99284

== ENCOUNTER → 2023-03-29 10:29 | Outpatient (CLI) | payer MEDICARE, MEDICAID, SELFPAY | PROVIDERS: PCP Physician Assistant Medical; Visit Provider Nurse Practitioner Family | DX: R30.0 Dysuria (principal) | CPT/HCPCS: 87086 ==

== ENCOUNTER 2024-03-20 13:36 | Emergency (ER) | payer MEDICARE, MEDICAID, SELFPAY ==
[2024-03-20] VITALS (16 sets, daily range): BP systolic 117–171; BP diastolic 67–102; PULSE 77–112; RESP 12–28; TEMP 36.5; O2SAT 94–98; BMI 38.0
--- NOTE | 2024-03-20 13:40 | EKG_ITS ---
[address] [address] Test Date: 2024-03-20 Pat Name: Delaney Paredes Department: Room: Gender: Female Snagger: NICKIE : 1950 Requested By: Order Number: [id number] Reading MD: Kevin Odom MD Measurements Intervals [place] Rate: 93 P: [place]: QRS: 8 QRSD: 70 T: 30 QT: 372 QTc: 462 Interpretive Statements Atrial fibrillation Electronically Signed On 03-21-2024 11:57:41 PST by Kevin Odom MD
--- NOTE | 2024-03-20 13:44 | DI.RAD.S_ITS ---
PROCEDURE: XR CHEST 1V INDICATIONS: chest pain TECHNIQUE: One view of the chest was acquired. COMPARISON: [facility], CR, XR CHEST 1V, 01/10/2022, 20:35. FINDINGS: Surgical changes and devices: None. Lungs and pleura: Lungs are clear. No pleural effusions or pneumothorax. Mediastinum: Mediastinal contours appear normal. Heart size is normal. Bones and chest wall: No suspicious bony lesions. Overlying soft tissues appear unremarkable. IMPRESSION: No acute pulmonary process. Dictated by: Jazmyn Goodman M.D. on 03/20/2024 at 14:33 Approved by: Jazmyn Goodman M.D. on 03/20/2024 at 14:33
[2024-03-20 13:58] LABS: Add Manual Diff / Slide Review NO; Basophils Absolute Auto 0 /uL (0-100); Basophils Percent Auto 0.6 % (0-2); Eosinophils Absolute Auto 300 /uL (0-450); Eosinophils Percent Auto 4.7 % (2-4); Hematocrit 43.1 % (36-46); Hemoglobin 14.3 g/dL (12.0-16.0); Lymphocytes Absolute Auto 2100 /uL (1100-4500); Lymphocytes Percent Auto 36.1 % (25-40); Mean Corpuscular HGB Conc 33.1 % (30-36); Mean Corpuscular Hemoglobin 31.6 PG (26-34); Mean Corpuscular Volume 95.4 fL (80-100); Monocytes Absolute Auto 600 /uL (0-900); Monocytes Percent Auto 9.8 % (3-14); Neutrophils Absolute Auto 2900 /uL (1500-7000); Neutrophils Percent Auto 48.8 % (50-75); Platelet Count 253 X10^3/uL (150-400); Red Blood Cell Count 4.52 X10^6/uL (4.0-5.2); White Blood Cell Count 5.9 X10^3/uL (4.5-11.0)
[2024-03-20 14:06] LABS: INR 1.2 (0.9-1.3); Prothrombin Time 14.1 SECONDS (9.4-12.5)
[2024-03-20 14:09] LABS: PTT Partial Thromboplastin Tim 36 SECONDS (25.1-36.5)
[2024-03-20 14:10] LABS: Alanine Aminotransferase 35 IU/L (<35); Albumin 4.8 g/dL (3.5-5.0); Albumin Globulin Ratio 1.1 (1.0-2.8); Alkaline Phosphatase 75 U/L (38-126); Aspartate Aminotransferase 42 IU/L (14-36); BUN Creatinine Ratio 18.8 (6-22); Bilirubin Total 0.5 mg/dL (0.2-1.3); Blood Urea Nitrogen 29 mg/dL (7-17); Calcium 9.4 mg/dL (8.4-10.2); Carbon Dioxide 28 mmol/L (22-32); Chloride 102 mmol/L (98-107); Creatine Kinase 75 U/L (30-135); Estimated Glomerular Filt Rate 35 mL/min (>60); Globulin 4.4 g/dL (1.7-4.1); Glucose 141 mg/dL (80-110); Lipase 371 U/L (23-300); Magnesium 1.9 mg/dL (1.6-2.3); Potassium 4.4 mmol/L (3.4-5.1); Sodium 138 mmol/L (137-145); Total Protein 9.2 g/dL (6.3-8.2)
[2024-03-20 14:11] LABS: HEMOLYSIS 53 (0-50)
[2024-03-20 14:22] LABS: NT-proBNP (BNP-Adult 18+) 1410 pg/mL (<125); Troponin I < 0.012 ng/mL (0.01-0.034)
--- NOTE | 2024-03-20 14:44 | ED_ITS ---
HPI - Chest Pain General Chief Complaint: Chest Pain Stated Complaint: chest and rt hip px Time Seen by Provider: 03/20/24 13:51 Source: patient and family Mode of arrival: Ambulatory Limitations: no limitations History of Present Illness HPI narrative: 73-year-old lady with a history of chronic atrial fibrillation on Xarelto, diabetes, hypertension, hyperlipidemia who presents with 24 hours of myalgias now noting some discomfort with deep breathing into the right chest and complaining of approximately a week of right-sided pain on the outer portion of the hip with no skin changes or trauma appreciated. She is noticing a slight dry cough developing over the course of today, no shortness a breath slight headache mild nausea no abdominal pain no diarrhea. She has not complaining of palpitations or left-sided chest pain. Related Data Home Medications Medication Instructions Recorded Confirmed simvastatin 20 mg tablet 20 mg PO QPM 08/08/17 03/20/24 allopurinol 300 mg tablet 300 mg PO DAILY 09/01/18 03/20/24 metoprolol tartrate 100 mg tablet 150 mg PO DAILY 09/01/18 03/20/24 amlodipine 5 mg tablet 10 mg PO DAILY 11/11/20 03/20/24 glimepiride 2 mg tablet 2 mg PO DAILY 11/11/20 03/20/24 losartan 50 mg tablet 50 mg PO DAILY 11/11/20 03/20/24 rivaroxaban 20 mg tablet (Xarelto) 20 mg PO DAILY 11/11/20 03/20/24 Allergies Allergy/AdvReac Type Severity Reaction Status Date / Time No Known Drug Allergies Allergy Verified 03/29/23 10:13 Review of Systems Review of Systems Narrative: Pertinent positive and negative findings as per HPI Patient History Medical History (Updated 03/20/24 @ 18:03 by Sydnie Mason MD) Atrial fibrillation Diabetes Hypertension Hyperlipidemia Social History Smoking Status: Former smoker Smoking Status: Former smoker alcohol intake frequency: holidays/special occasions only Exam Initial Vital Signs Initial Vital Signs: Vital Signs Temperature 97.7 F 03/20/24 13:38 Pulse Rate 90 03/20/24 13:38 Respiratory Rate 18 03/20/24 13:38 Blood Pressure 171/87 H 03/20/24 13:38 Pulse Oximetry 97 03/20/24 13:38 Oxygen Delivery Method Room Air 03/20/24 13:38 General: Healthy appearing, in no acute distress. Able to give a complete and coherent history. Well-nourished well-developed HEENT: Moist mucous membranes, normal sclera with reactive pupils, Neck: No cervical adenopathy Respiratory: Lungs with minor scattered wheeze right mid lung javier do clear with deep breathing. Cardiac: Irregular without murmurs Abdomen: Soft, nontender, good bowel tones, no flank pain Skin: Warm and dry, no rashes Neurologic: Grossly neurologically intact with no obvious asymmetries or abnormalities Extremities: Tenderness over the right hip bursa without skin changes. There is no tenderness with pelvic ring manipulation, palpation along the lumbar spine, internal or external rotation of the hip. Psych: Cooperative, appropriate insight and affect Course Orders Ordered: ED Orders 03/20/24 13:40 EKG-12 Lead Stat 03/20/24 13:44 XR chest 1V Stat 03/20/24 13:50 Complete Blood Count AUTO DIFF Stat Comprehensive Metabolic Panel Stat Lipase Stat Magnesium Stat NT-proBNP (BNP-Adult 18+) Stat PTT Partial Thromboplastin Hipolito Stat Prothrombin Time INR Stat Troponin & CK Cardiac Panel Stat 03/20/24 14:11 Covid-19 + FLU A/B + RSV - PCR Stat 03/20/24 16:46 Trop I [Troponin I] Stat Discontinued Medications Aspirin (Aspirin 81 Mg Chew Tab) 324 mg PO NOW ONE Stop: 03/20/24 13:45 Last Admin: 03/20/24 14:09 Dose: Not Given Documented By: KW Vital Signs Vital signs: Vital Signs - 8 hr 03/20/24 13:38 03/20/24 13:45 03/20/24 13:46 Temperature 97.7 F Pulse Rate 90 94 H 79 Respiratory Rate 18 Blood Pressure 171/87 H Pulse Oximetry 97 98 98 Oxygen Delivery Method Room Air 03/20/24 13:46 03/20/24 14:00 03/20/24 14:00 Temperature Pulse Rate 77 Respiratory Rate Blood Pressure 171/87 H 150/82 H Pulse Oximetry 97 Oxygen Delivery Method 03/20/24 14:30 03/20/24 14:30 03/20/24 15:00 Temperature Pulse Rate 79 Respiratory Rate 12 Blood Pressure 128/75 124/84 Pulse Oximetry 95 Oxygen Delivery Method 03/20/24 15:00 03/20/24 15:31 03/20/24 15:32 Temperature Pulse Rate 97 H 93 H Respiratory Rate 27 H 28 H Blood Pressure 130/67 Pulse Oximetry 95 94 Oxygen Delivery Method 03/20/24 15:32 03/20/24 15:35 03/20/24 15:35 Temperature Pulse Rate 91 H 81 Respiratory Rate 15 15 Blood Pressure 131/75 Pulse Oximetry 96 96 Oxygen Delivery Method 03/20/24 16:00 03/20/24 16:00 03/20/24 16:30 Temperature Pulse Rate 96 H 82 Respiratory Rate 15 26 H Blood Pressure 117/82 Pulse Oximetry 96 95 Oxygen Delivery Method 03/20/24 16:31 03/20/24 16:31 03/20/24 16:46 Temperature Pulse Rate 82 Respiratory Rate Blood Pressure 151/79 H 132/81 Pulse Oximetry 96 Oxygen Delivery Method 03/20/24 16:46 03/20/24 17:00 03/20/24 17:00 Temperature Pulse Rate 112 H 96 H Respiratory Rate 15 22 Blood Pressure 132/81 Pulse Oximetry 97 96 Oxygen Delivery Method MDM - Chest Pain Lab Data 03/20/24 13:50 03/20/24 13:50 Labs: Lab Results 03/20/24 03/20/24 03/20/24 Range/Units 13:50 14:11 16:46 WBC 5.9 (4.5-11.0) X10^3/uL RBC 4.52 (4.0-5.2) X10^6/uL Hgb 14.3 (12.0-16.0) g/dL Hct 43.1 (36-46) % MCV 95.4 (80-100) fL MCH 31.6 (26-34) PG MCHC 33.1 (30-36) % RDW 13.0 (11.6-14.8) % Plt Count 253 (150-400) X10^3/uL Neut % (Auto) 48.8 L (50-75) % Lymph % (Auto) 36.1 (25-40) % Mcculloch % (Auto) 9.8 (3-14) % Eos % (Auto) 4.7 H (2-4) % Baso % (Auto) 0.6 (0-2) % Neut # (Auto) 2900 (5214-0604) /uL Lymph # (Auto) 2100 (4110-1497) /uL M[place]ulloch # (Auto) 600 (0-900) /uL Eos # (Auto) 300 (0-450) /uL Baso # (Auto) 0 (0-100) /uL PT 14.1 H (9.4-12.5) SECONDS INR 1.2 (0.9-1.3) APTT 36 (25.1-36.5) SECONDS Sodium 138 (137-145) mmol/L Potassium 4.4 (3.4-5.1) mmol/L Chloride 102 (98-107) mmol/L Carbon Dioxide 28 (22-32) mmol/L BUN 29 H (7-17) mg/dL Creatinine 1.54 H (0.52-1.04) mg/dL Estimated GFR 35 L (>60) mL/min BUN/Creatinine Ratio 18.8 (6-22) Glucose 141 H (80-110) mg/dL Calcium 9.4 (8.4-10.2) mg/dL Magnesium 1.9 (1.6-2.3) mg/dL Total Bilirubin 0.5 (0.2-1.3) mg/dL AST 42 H (14-36) IU/L ALT 35 H (<35) IU/L Alkaline Phosphatase 75 (38-126) U/L Total Creatine Kinase 75 (30-135) U/L Troponin I < 0.012 < 0.012 (0.01-0.034) ng/mL NT-Pro-B Natriuret Pep 1410 H (<125) pg/mL Total Protein 9.2 H (6.3-8.2) g/dL Albumin 4.8 (3.5-5.0) g/dL Globulin 4.4 H (1.7-4.1) g/dL Albumin/Globulin Ratio 1.1 (1.0-2.8) Lipase 371 H (23-300) U/L SARS-CoV-2 (PCR) Negative (Negative) Influenza A (RT-PCR) Flu a negative (NEGATIVE) Influenza B (RT-PCR) Flu b negative (NEGATIVE) RSV (PCR) Negative (Negative) MDM Narrative Medical decision making narrative: CC: Myalgias for 24 hours, slight increase in cough and right-sided chest pain today, one-week of right trochanteric bursa type pain Complicating co-morbidities: Diabetes, hypertension, hyperlipidemia Data collected from: patient Medical records reviewed: ER notes over the last years for epistaxis, arthritis, abdominal pain, atrial fibrillation are all reviewed Differential considered: Influenza, pneumothorax, pulmonary embolism, bacterial pneumonia, hip arthritis, trochanteric bursitis, low back pain Exam documented above, pertinent findings include: Patient is alert and appropriate, is continuing to complain of myalgias, minor wheeze right posterior lung field resolve with deep breathing. Chronic atrial fibrillation rate controlled as appreciated. No significant abdominal pain, no lower extremity edema. Tenderness over the trochanteric bursa to palpation without any tenderness with external rotation or internal rotation of the hip Lab Test results independently reviewed as above. Pertinent findings: CBC is unremarkable Chemistries show slight increased to creatinine currently at 1.54 with a GFR 34. Mild increased to AST at 42 and ALT at 35. Troponin is undetectable, repeat troponin is also undetectable Minimally elevated BNP at 1410 Lipase minimally elevated at 371 Independently reviewed EKG: EKG shows atrial fibrillation without acute ischemic changes. Rate is 93 Imaging studies independently reviewed: Chest x-ray is unremarkable. No obvious sequelae of congestive heart failure Discussion: 73-year-old woman complaining of discomfort in the right lower lung and upper abdominal area. No life-threatening abnormalities have been identified. Troponin and repeat troponin is unremarkable. I am seeing no sign of pneumonia. No evidence of influenza, COVID or respiratory syncytial virus however given her myalgias another virus may well be part of her current issues. She has a slight bump in her creatinine and minimally elevated BNP with no secondary signs of acute congestive heart failure. Will not make any changes or adjustments to medications at this time. Regarding her right hip pain I suspect that this is bursitis and have asked her to follow up with her primary care physician. At this time she is safe for discharge home Discharge Plan Departure Patient Disposition: Home Clinical Impression: Intermittent right-sided chest pain Bursitis of hip, right Qualifiers: Hip bursitis location: trochanteric bursitis Qualified Code(s): M70.61 - Trochanteric bursitis, right hip Chronic kidney disease Qualifiers: Chronic kidney disease stage: unspecified stage Qualified Code(s): N18.9 - Chronic kidney disease, unspecified Instructions: DI for Hip Bursitis Activity Restrictions/Additional Instructions: Thank you for coming in today I did not find any evidence of heart attack and there is no evidence of infection that requires antibiotics With the achy all over feeling that you are having you may be coming down with a virus. I did test for COVID and influenza and respiratory syncytial virus and all of these were negative. Your chest x-ray did not show pneumonia and does not show significant heart failure. Blood work does suggest a very small amount of fluid collecting due to heart failure. Your kidney function is slightly worse. Neither of these findings require hospitalization however I would recommend that you schedule a follow up appointment for routine care with your kidney specialist and with your primary care doctor to review any of the concerns with heart failure. Regarding your right hip pain. I suspect that this is a bursitis. This is not arthritis, not back pain and there was no evidence of infection. For pain control Tylenol is going to be the best option for you. If you feel that you are getting worse, please do return to the ER Prescriptions: No Action simvastatin 20 mg tablet 20 mg PO QPM allopurinol 300 mg tablet 300 mg PO DAILY metoprolol tartrate 100 mg tablet 150 mg PO DAILY Xarelto 20 mg tablet 20 mg PO DAILY Patient Comments: TAKE 1 TABLET BY MOUTH ONCE DAILY WITH FOOD AT LARGEST MEAL FOR ATRIAL FIBRILLATION. amlodipine 5 mg tablet 10 mg PO DAILY glimepiride 2 mg tablet 2 mg PO DAILY Patient Comments: TAKE 1 TABLET BY MOUTH ONCE DAILY FOR DIABETES losartan 50 mg tablet 50 mg PO DAILY Patient Comments: TAKE 1 TABLET BY MOUTH ONCE DAILY Referrals: Emma Blake PA-C [Primary Care Provider] - Stand Alone Forms: Patient Portal/API/Survey
[2024-03-20 14:59] LABS: Influenza A - CEPHEID Flu A NEGATIVE (NEGATIVE); Influenza B - CEPHEID Flu B NEGATIVE (NEGATIVE); Respiratory Syncytial Virus Negative (Negative)
[2024-03-20 15:00] LABS: COVID-19 CEPHEID 4-PLEX PCR Negative (Negative)
[2024-03-20 17:26] LABS: Troponin I < 0.012 ng/mL (0.01-0.034)
== END 2024-03-20 18:11 | disposition home or self-care (01) ==
PROVIDERS: Emergency Provider Emergency Medicine; PCP Physician Assistant Medical
DX: R07.9 Chest pain, unspecified (principal); M70.61 Trochanteric bursitis, right hip; N18.9 Chronic kidney disease, unspecified; I48.91 Unspecified atrial fibrillation; Z79.01 Long term (current) use of anticoagulants
CPT/HCPCS: 0241U; 71045; 80053; 82550; 83690; 83735; 83880; 84484; 85025; 85610; 85730; 93005; 93010; 99283; 99284

== ENCOUNTER 2024-08-26 19:56 | Emergency (ER) | payer MEDICARE, MEDICAID, SELFPAY ==
--- NOTE | 2024-08-26 20:10 | DI.RAD.S_ITS ---
PROCEDURE: XR CHEST 1V INDICATIONS: Chest Pain TECHNIQUE: One view of the chest was acquired. COMPARISON: [facility], CR, XR CHEST 1V, 03/20/2024, 13:44. FINDINGS: Surgical changes and devices: None. Lungs and pleura: Mild appearance of increased pulmonary vascularity. Mediastinum: Mediastinal contours appear normal. Heart size is enlarged. Bones and chest wall: No suspicious bony lesions. Overlying soft tissues appear unremarkable. IMPRESSION: Cardiomegaly with mild increased vascularity suggestive of edema. Dictated by: Jazmyn Goodman M.D. on 08/26/2024 at 21:29 Approved by: Jazmyn Goodman M.D. on 08/26/2024 at 21:29
--- NOTE | 2024-08-26 20:16 | EKG_ITS ---
[place] [address] [address] [place] [id number] Test Date: 2024-08-26 Pat Name: Delaney Paredse Department: [facility] Room: Gender: Female [employer]: : 1950 Requested By: Order Number: [id number] Reading MD: Kevin Odom MD Measurements Intervals [place] Rate: 93 P: ME: QRS: 5 QRSD: 70 T: 74 QT: 352 QTc: 437 Interpretive Statements Atrial fibrillation Cannot rule out Anterior infarct , age undetermined Electronically Signed On 08-27-2024 7:27:14 PDT by Kevin Odom MD
[2024-08-26 20:19] VITALS: BP 150/93; PULSE 93; RESP 18; TEMP 36.6; O2SAT 96; BMI 33.6
[2024-08-26 20:44] LABS: INR 1.6 (0.9-1.3); Prothrombin Time 17.8 SECONDS (9.4-12.5)
[2024-08-26 20:47] LABS: Add Manual Diff / Slide Review NO; Basophils Absolute Auto 0 /uL (0-100); Basophils Percent Auto 0.8 % (0-2); Eosinophils Absolute Auto 200 /uL (0-450); Eosinophils Percent Auto 4.8 % (2-4); Hematocrit 41.1 % (36-46); Hemoglobin 13.7 g/dL (12.0-16.0); Lymphocytes Absolute Auto 1700 /uL (1100-4500); Lymphocytes Percent Auto 32.8 % (25-40); Mean Corpuscular HGB Conc 33.3 % (30-36); Mean Corpuscular Hemoglobin 31.9 PG (26-34); Mean Corpuscular Volume 95.8 fL (80-100); Monocytes Absolute Auto 600 /uL (0-900); Monocytes Percent Auto 11.3 % (3-14); Neutrophils Absolute Auto 2600 /uL (1500-7000); Neutrophils Percent Auto 50.3 % (50-75); PTT Partial Thromboplastin Tim 40 SECONDS (25.1-36.5); Platelet Count 198 X10^3/uL (150-400); Red Blood Cell Count 4.29 X10^6/uL (4.0-5.2); Red Cell Distribution Width 12.7 % (11.6-14.8); White Blood Cell Count 5.2 X10^3/uL (4.5-11.0)
[2024-08-26 20:50] LABS: Alanine Aminotransferase 23 IU/L (<35); Albumin 4.3 g/dL (3.5-5.0); Albumin Globulin Ratio 1.1 (1.0-2.8); Alkaline Phosphatase 95 U/L (38-126); Aspartate Aminotransferase 30 IU/L (14-36); BUN Creatinine Ratio 16.9 (6-22); Bilirubin Total 0.4 mg/dL (0.2-1.3); Blood Urea Nitrogen 21 mg/dL (7-17); Calcium 9.3 mg/dL (8.4-10.2); Carbon Dioxide 25 mmol/L (22-32); Chloride 104 mmol/L (98-107); Creatine Kinase 528 U/L (30-135); Estimated Glomerular Filt Rate 46 mL/min (>60); Globulin 3.8 g/dL (1.7-4.1); Glucose 140 mg/dL (70-99); HEMOLYSIS < 15 (0-50); Lipase 415 U/L (23-300); Magnesium 1.8 mg/dL (1.6-2.3); Potassium 4.5 mmol/L (3.4-5.1); Sodium 136 mmol/L (137-145); Total Protein 8.1 g/dL (6.3-8.2)
[2024-08-26 21:02] LABS: NT-proBNP (BNP-Adult 18+) 1130 pg/mL (<125); Troponin I < 0.012 ng/mL (0.01-0.034)
== END 2024-08-27 01:39 | disposition left against medical advice (07) ==
PROVIDERS: Emergency Provider Emergency Medicine; PCP Physician Assistant Medical
DX: R07.9 Chest pain, unspecified (principal)
CPT/HCPCS: 36415; 71045; 80053; 82550; 83690; 83735; 83880; 84484; 85025; 85610; 85730; 93005; 93010; 99283

== ENCOUNTER → 2025-02-20 12:37 | Outpatient (CLI) | payer MEDICARE, MEDICAID, SELFPAY | LOC: RESP 12:37 | PROVIDERS: PCP Physician Assistant Medical; Referring Provider Nurse Practitioner Acute Care; Visit Provider Nurse Practitioner Acute Care | DX: Z51.81 Encounter for therapeutic drug level monitoring (principal); Z79.899 Other long term (current) drug therapy; Z87.891 Personal history of nicotine dependence; R94.2 Abnormal results of pulmonary function studies | CPT/HCPCS: 94060; 94726; 94729 ==